=== PATIENT | female | born 1940 | race Caucasian/White ===

== ENCOUNTER 2022-04-28 11:41 | Outpatient (REF) | payer MEDICARE, OTHER, SELFPAY ==
[2022-04-28 14:23] LABS: Appearance Urine Clear; Color Urine Yellow; Glucose Urine UA Negative (Negative); Leukocyte Esterase Urine Large (3+) (Negative); Nitrite Urine Negative (Negative); PH 6.5 (5.0-9.0); UMIC TRIGGER UACC YES; Urine Blood Negative (Negative); Urine Ketones Negative (Negative); Urine Protein Negative (Neg-Trace)
[2022-04-28 14:26] LABS: Bacteria Urine Trace (None Seen); Hyaline Casts Urine 0-2 /LPF (0-2); RBC Urine 0-2 /HPF (0-2); Squamous Epithelial Cell Urine 0-2 /HPF (0-2); UACC Culture Trigger YES; WBC Urine >50 /HPF (0-5)
== END 2022-04-28 11:42 | disposition home or self-care (01) ==
LOC: HO.MANLDS 11:41
PROVIDERS: Visit Provider Internal Medicine
DX: N39.0 Urinary tract infection, site not specified (principal)
CPT/HCPCS: 81001; 87086; 87088; 87186

== ENCOUNTER 2022-07-05 18:24 | Outpatient (REF) | payer MEDICARE, OTHER, SELFPAY ==
[2022-07-06 11:25] LABS: Campylobacter Not Detected (Not Detect.); E. coli EAEC Not Detected (Not Detect.); E. coli EPEC Not Detected (Not Detect.); E. coli ETEC Not Detected (Not Detect.); E. coli STEC Not Detected (Not Detect.); Plesiomonas shigelloides Not Detected (Not Detect.); Salmonella Not Detected (Not Detect.); Vibrio Not Detected (Not Detect.); Vibrio Cholerae Not Detected (Not Detect.)
[2022-07-06 11:26] LABS: Adenovirus F 40/41 Not Detected (Not Detect.); Astrovirus Not Detected (Not Detect.); Cryptosporidium Not Detected (Not Detect.); Cyclospora cayetanensis Not Detected (Not Detect.); Entamoeba histolytica Not Detected (Not Detect.); Giardia lamblia Not Detected (Not Detect.); Norovirus GI/GII Not Detected (Not Detect.); Rotavirus A Not Detected (Not Detect.); Sapovirus Not Detected (Not Detect.); Shigella sp./EIEC Not Detected (Not Detect.)
[2022-07-06 11:28] LABS: Yersinia enterocolitica Detected (Not Detect.)
== END 2022-07-05 18:25 | disposition home or self-care (01) ==
LOC: HO.LNP 18:24
PROVIDERS: Visit Provider Physician Assistant
DX: K59.09 Other constipation (principal); R10.9 Unspecified abdominal pain; R14.0 Abdominal distension (gaseous); R11.0 Nausea
CPT/HCPCS: 87507

== ENCOUNTER 2024-01-27 09:44 | Outpatient (REF) | payer MEDICARE, OTHER, SELFPAY ==
[2024-01-27 14:20] LABS: Erythrocyte Sedimentation Rate 6 MM/HR (0-20)
[2024-01-27 14:45] LABS: Magnesium 2.4 mg/dL (1.6-2.6)
[2024-01-31 08:59] LABS: Lyme Abs Screen <0.90 index
== END 2024-01-27 09:45 | disposition home or self-care (01) ==
LOC: HO.MANLDS 09:44
PROVIDERS: Visit Provider Internal Medicine
DX: M79.10 Myalgia, unspecified site (principal)
CPT/HCPCS: 36415; 82550; 83735; 85652; 86617; 86618

== ENCOUNTER 2025-07-15 14:51 | Outpatient (REF) | payer MEDICARE, OTHER, SELFPAY ==
--- OUTSIDE RECORDS SUMMARY | 2025-07-11 04:00 | XMS_ITS | Encounter Summary ---
Author Organization [facility] Address [address] [place] [address] Phone Care Team Providers Care Cloth Colorer Name Role Phone Jv Tavera Nicole IVY Primary Care Provider [phone] Reason for Visit * Auth/Cert (Routine) Specialty Diagnoses / Procedures Referred By Contac t Referred To Contact Referral ID Status Reason Start Date Expiration Date Visits Re quested Visits Authorized [id number] 1 1 Encounter Details Date Type Department Care Team (Late st Contact Info) Description 07/11/2025 4:00 AM EST Home Care Visit [facility] [address] [place], [place] [phone] O'Nguyen, Malika Xiao, RN [address] [place] [address] [email or web address] SN HOME VISIT Social History Tobacco Use Types Packs/Day Years Used Date Smoking Tobacco: Never Smokeless Tobacco: Never Alcohol Use Standard Drinks/Week Comments Yes 0 (1 standard drink = 0.6 oz pur e alcohol) very occasional Home Health Assessment: Transportation Answer Date Recorded Lack of Transportation (Medical) No 06/21/2025 Lack of Transportation (Non-Medical) No 06/21/2025 Patient Unable or Declines to Respond No 06/21/2025 Education Answer Date Recorded Are you interested in more education? Not on yuri e 11/26/2022 Are you concerned about learning? Not on file 11/26/2022 No 11/26/2022 No 11/26/2022 Food Answer Date Recorded Within the past 6 months we worried whether our food would run out before we got money to buy more. Never True 06/18/2025 Within the past 6 months the food we bought just didn't last and we didn't have enough money to get more. Never True Residential Stability Answer Date Recor ded What is your housing situation today? I have jose rojo 06/18/2025 How many times have you move d in the past 12 months? Zero (I did not move) 06/18/2025 Paying for Meds Answer Date Recorded Do you have trouble paying for medicines? No 06/18/2025 Paying Utility Bills Answer Date Record ed Do you have trouble paying your heating or elect ricity bill? No 06/18/2025 Transportation Answer Date Recorded Has the lack of transportati on kept you from medical appointments or from getting medications? No 06/18/2025 Digital Access Answer Date Recorded No 06/18/2025 Yes 06/18/2025 Do you have reliable internet access at home? Ye s 06/18/2025 Do you have a device (e.g., phone, tablet, computer) with a working camera? Yes 06/18/2025 Intimate Partner Violence Answer Date R ecorded Are you denied basic needs s uch as food, clothing, or medical care? No 06/17/2025 In the past 12 months have y ou been in a relationship with a person who hurts, threatens, or tries to control you? No 06/17/2025 Are you denied basic needs s uch as food, clothing, or medical care? No 06/17/2025 In the past 12 months have y ou been in a relationship with a person who hurts, threatens, or tries to control you? No 06/17/2025 Comments No Sex and Gender Information Value Date Recorded Sex Assigned at Female 07/28/2018 8:57 AM EST Legal Sex Female 10:12 PM EDT Gender Identity Female 07/28/2018 8:57 AM EST Sexual Orientation Straight 07/28/2018 8: 57 AM EST documented as of this encounter Last Filed Vital Signs Vital Sign Reading Time Taken Comments Blood Pressure 136/64 07/11/2025 11:28 AM EST Pulse 66 07/11/2025 11:28 AM EST Temperature 36.8 C (98.3 F) 07/11/2025 11:28 AM EST Respiratory Rate 18 07/11/2025 11:28 AM EST Oxygen Saturation 99% 07/11/2025 11:28 AM EST Inhaled Oxygen Concentration - - Weight - - Height - - Body Mass Index - - documented in this encounter Plan of Treatment Upcoming Encounters Date Type Department Care Team (Late st Contact Info) Description 07/16/2025 10:45 AM EST Appointment [facility] [address] [place] [phone] Esther Bryant, OT [address] [place] [address] [email or web address] 07/17/2025 4:00 AM EST Appointment [facility] [address] [place] [phone] Malika Mcintosh RN [address] [place] [address] [email or web address] 07/18/2025 10:45 AM EST Appointment [facility] [address] [place] [phone] Esther Bryant, OT [address] [place] [address] [email or web address] 07/22/2025 1:00 AM EST Appointment [facility] [address] [place] [phone] Esther Bryant, OT [address] [place] [address] [email or web address] 07/23/2025 12:30 AM EST Appointment [facility] [address] [place] [phone] Malika Mcintosh RN [address] [place] [address] [email or web address] 07/23/2025 1:00 AM EST Appointment [facility] [address] [place] [phone] Esther Bryant, OT [address] [place] [address] 07/24/2025 1:30 PM EST Office Visit [facility] [address] [place] [address] Karina Pedraza, JOSÉ [address] [address] 07/31/2025 3:00 AM EST Appointment [facility] [address] [place] [phone] O'Nguyen, Malika Xiao RN [address] [place] [phone] 08/07/2025 1:00 AM EST Appointment [facility] [address] [place] [phone] O'Nguyen, Malika Xiao RN [address] [place] [phone] 08/15/2025 Appointment [facility] [address] [place] [phone] O'Nguyen, Malika Xiao RN [address] [place] [address] 08/21/2025 2:00 PM EST Office Visit [facility] [address] [place] [address] 3rd Floor, [address] [address] Yvan Bates MD [address] [place] [phone] 09/04/2025 1:00 PM EST Office Visit [facility] [address] [place] [address] [phone] Coco Smith MD [address] [place] [address] Orthopedics & Sports Medicine, [place] [address] 11/01/2025 1:30 PM EDT Telemedicine [facility] [address], 2nd Floor, [address] [place] [address] Bossman Weems MD [address] [place] [address] [address] [place] [address] [email or web address] 12/10/2025 2:00 PM EDT Office Visit [facility] [address] [place] [address] Sarah Balderas MD [address] [place] [address], 2nd [place] [address] [email or web address] documented as of this encounter Visit Diagnoses Not on filedocumented in this encounter Home Health Visit - Care Plan Visit Details Visit Type -SN HOME VISIT Discipline -Nursing Home Problems Problem Description Start Date Status Goals Interve ntions HH - Infection - Actual or Risk of Disciplines: All Active Home Health Disciplines 06/21/2025 Active 1 goal linked to scheduled/document ed intervention 1 goal intervention scheduled/document ed in this visit HH - Standard of Care Disciplines: All Active Home Health Disciplines 06/21/2025 Active 1 goal linked to scheduled/document ed intervention 2 goal interventions scheduled/document ed in this visit HH - Medication Management Disciplines: All Active Home Health Disciplines 06/21/2025 Active 1 goal linked to scheduled/document ed intervention 2 goal interventions scheduled/document ed in this visit HH - Focus of Care and Teaching Disciplines: All Active Home Health Disciplines w/RD 06/21/2025 Active 1 goal linked to scheduled/document ed intervention 1 goal intervention scheduled/document ed in this visit HH - Emergency Planning - Knowledge of Disciplines: All Active Home Health Disciplines 06/21/2025 Active 1 goal linked to scheduled/document ed intervention 2 goal interventions scheduled/document ed in this visit Goals Goal Associated Problem Outcome Goal Met? Visit Notes HH - Patient will have no new infection; any new infection that occurs will be identified and treated promptly; existing infection will resolve without complication Description: Patient and caregiver(s) will demonstrate understanding of infection prevention, monitoring, and treatment as appropriate HH - Infection - Actual or Risk of No HH - Achieve care management for a safe to home/community discharge from homecare HH - Standard of Care No HH - Safe medication management, avoid unnecessary harm related to medication errors and/or interactions HH - Medication Management No HH - Communication and collaboration to achieve patient goals HH - Focus of Care and Teaching No HH - Knowledge of options for managing care in the event of an emergency related situation. HH - Emergency Planning - Knowledge of No Interventions Intervention Associated Problem/Goal Status Variance Visit Notes HH - Assess infection risk and s/s Problem:HH - Infection - Actual or Risk of Goal:HH - Patient will have no new infection; any new infection that occurs will be identified and treated promptly; existing infection will resolve without complication Performed HH - Assess vital signs, pulse oximetry, pain, and as indicated, orthostatic vital signs Description: use agency-specific parameters Problem:HH - Standard of Care Goal:HH - Achieve care management for a safe to home/community discharge from homecare Performed HH - Assess skin integrity Problem: - Standard of Care Goal:HH - Achieve care management for a safe to home/community discharge from homecare Performed HH - I/E medication management: administration, purpose, dosages, preparation, setup, scheduling, side effects, food/drug interactions, and potential complications as indicated Description: Update patient's copy of medication list as needed. Problem: - Medication Management Goal:HH - Safe medication management, avoid unnecessary harm related to medication errors and/or interactions Performed - Complete medication review every visit and medication reconciliation as indicated. Pharmacy information: Description: medications will be reviewed each visit Problem: - Medication Management Goal: - Safe medication management, avoid unnecessary harm related to medication errors and/or interactions Performed - Focus of care, teaching completed and plan for next visit Problem: - Focus of Care and Teaching Goal: - Communication and collaboration to achieve patient goals Performed Primary Clinical Focus this Visit & Instruction Provided: SNV for CVP, GI/. Pt c/o constipation that causes her discomfort 10/08. Pt is taking Senna daily and states she is worried about taking more because it causes her to many frequent BMs. She report s she is having trouble finding the right amount to help her have regular BMs. Education was provided on diet, exercise and hydration. Pt states that she has trouble eating and drinking when she feels constipated. Pt has an apointment with PCP next week and plans to discuss this with PCP. She also has an apointment with GI on 07/24 to follow up. Pt declined vitals assessment because her OT apointment was directly after this visit and she wanted to only have them assessed once. Pt became upset about havi ng her vitals taken. Education was provided on how SNV assessments require us to evaluate her including taking her vitals. Instruction Provided to: patient Response to Instruction/Teaching : Is fully able to teach back topics as evidenced by verbal und erstanding. Plan for Next Visit Specific Focus & Education Needed: CVP, GI/ teaching New Orders: no Updated Discharge Plan: when goals are met HH - I/E management of care in an urgent or emergency (ER) situation: When to call your Home Care Team/911, ER plans, supplies, evacuation, when to contact local ER officials and how to stay informed Problem:HH - Emergency Planning - Knowledge of Goal:HH - Knowledge of options for managing care in the event of an emergency related situation. Performed HH - Emergency planning assessment: the emergency plan, supplies needed, emergency contact numbers and an evacuation plan were reviewed Description: Patient and Caregiver is/are knowledgeable of emergency plans. Problem:HH - Emergency Planning - Knowledge of Goal:HH - Knowledge of options for managing care in the event of an emergency related situation. Performed documented in this encounter Care Teams Cloth Colorer Relationship Specialty Start Date End Date Jv Tavera DO [address] [place] [address] [email or web address] PCP - General Internal Medicine 03/26/25 documented as of this encounter Additional Source Comments The information contained in this document represents components of the legal health record. It is not the complete legal health record.[facility]
--- OUTSIDE RECORDS SUMMARY | 2025-07-11 11:00 | XMS_ITS | Encounter Summary ---
Author Organization [facility] Address [address] [place] [address] Phone Care Team Providers Care Igniter Assembler Name Role Phone Jv Tavera Primary Care Provider [phone] Reason for Visit * Auth/Cert (Routine) Specialty Diagnoses / Procedures Referred By Contac t Referred To Contact Referral ID Status Reason Start Date Expiration Date Visits Re quested Visits Authorized [id number] 1 1 Encounter Details Date Type Department Care Team (Late st Contact Info) Description 07/11/2025 11:00 AM EST Home Care Visit [facility] [address] [place] [phone] Esther Bryant, OT [address] [place] [address] [email or web address] OT HOME VISIT Social History Tobacco Use Types [...] 07/16/2025 10:45 AM EST Appointment [facility] [address] [place] [phone] Esther Bryatn, OT [address] [place] [address] 07/17/2025 4:00 AM EST Appointment [facility] [address] [place] [phone] O'Malika Cedillo RN [address] [place] [address] 07/18/2025 10:45 AM EST Appointment [facility] [address] [place] [phone] Esther Bryant, OT [address] [place] [address] 07/22/2025 1:00 AM EST Appointment [facility] [address] [place] [phone] Esther Bryant, OT [address] [place] [address] 07/23/2025 12:30 AM EST Appointment [facility] [address] [place] [phone] Malika Mcintosh RN [address] [place] [address] 07/23/2025 1:00 AM EST Appointment [facility] [address] [place] [phone] Esther Bryant, OT [address] [place] [address] 07/24/2025 1:30 PM EST Office Visit [facility] [address] [place] [address] Karina Pedraza, JOSÉ [address] [address] 07/31/2025 3:00 AM EST Appointment [facility] [address] [place] [phone] O'Nguyen, Malika Xiao RN [address] [place] [phone] 08/07/2025 1:00 AM EST Appointment [facility] [address] [place] [phone] O'Nguyen, Malika Xiao RN [address] [place] [address] 08/15/2025 Appointment [facility] [address] [place] [phone] O'Nguyen, Malika Xiao RN [address] [place] [phone] 08/21/2025 2:00 PM EST Office Visit [facility] [address] [place] [address] 3rd Floor, [address] [address] Yvan Bates MD [address] [place] [address], [address] [address] 09/04/2025 1:00 PM EST Office Visit [facility] [address] [place] [phone] Coco Smith MD [address] [place] [address] Orthopedics & Sports Medicine, [facility] [place] [address] 11/01/2025 1:30 PM EDT Telemedicine [facility] [address], 2nd [address], [address] [place] [address] Bossman Weems MD [address] [place] [address] [email or web address] 12/10/2025 2:00 PM EDT Office Visit [facility] General [facility] Care [address] [place] [address] Sarah Baldears MD [address] [facility], 2nd [place] [address] [email or web address] documented as of this encounter Visit Diagnoses Not on filedocumented in this encounter Home Health Visit - Care Plan Visit Details Visit Type -OT HOME VISIT Discipline -Occupational Therapy Problems Problem Description Start Date Status Goals Interve ntions HH - Standard of Care Disciplines: All Active Home Health Disciplines 06/21/2025 Active 1 goal linked to scheduled/document ed intervention 3 goal interventions scheduled/document ed in this visit [...] scheduled/document ed in this visit HH - ADL/IADL Impairment and Therapeutic Interventions Disciplines: Occupational Therapy 06/26/2025 Active 1 goal linked to scheduled/document ed intervention 1 goal intervention scheduled/document ed in this visit Goals Goal Associated Problem Outcome Goal Met? Visit Notes HH - Achieve care management for a [...] - Emergency Planning - Knowledge of No HH - Promote higher level of independence with performance of ADLs/IADLs. Description: OT goals: 1.Patient will demonstrate ind with car transfers using AE as needed in 4 weeks. 2.Patient will demonstrate tub transfers using DME as needed ind in 4 weeks 3.Patient will demonstrate shower level bathing seated/standing from tub transfer b ench with SBA in 4 weeks 4.Patient will verbalize understanding of 2-3 EC strategies in order to reduce SOB and continue to participate in adl/iadl tasks. 5.Patient will demonstrate/understanding of therapy recommendations >90% accuracy in order to re duce fall risk and remain in home safely in 4 weeks. HH - ADL/IADL Impairment and Therapeutic Interventions Progressing No Interventions Intervention Associated Problem/Goal Status Variance Visit Notes HH - Assess vital signs, pulse oximetry, pain, and as indicated, orthostatic vital signs Description: use agency-specific parameters Problem:HH - Standard of Care Goal:HH - Achieve care management for a safe to home/community discharge from homecare Performed HH - Assess skin integrity Problem: - Standard of Care Goal:HH - Achieve care management for a safe to home/community discharge from homecare Performed - I/E discharge plan Problem:HH - Standard of Care Goal:HH - Achieve care management for a safe to home/community discharge from homecare Performed HH - I/E medication management: administration, purpose, dosages, preparation, setup, scheduling, side effects, food/drug interactions, and potential complications as indicated Description: Update patient's copy of medication list as needed. Problem:HH - Medication Management Goal:HH - Safe medication management, avoid unnecessary harm related to medication errors and/or interactions Performed HH - Complete medication review every visit and medication reconciliation as indicated. Pharmacy information: Description: medications will be reviewed each visit Problem: - Medication Management Goal:HH - Safe medication management, avoid unnecessary harm related to medication errors and/or interactions Performed HH - Focus of care, teaching completed and plan for next visit Problem: - Focus of Care and Teaching Goal:HH - Communication and collaboration to achieve patient goals Performed Primary Clinical Focus this Visit & Instruction Provided: Patient acquired tub transfer bench through [employer]-Patient willing to trial with OTR this date. Patient demonstrated ability to sit onto bench and pivot self around. OTR cued patient to think of it how she would get into a car. Patient physically able, however continues to want more to hold onto.Patient has 3 grab bars- though she wants a bar on the side of the tub that she steps over. OTR reviewed possibly acquiring tub clamp- however they also do not come up as high as patient is thinking. Vitals stable Pain - abdominal pain- cramping from needing to have BM- having difficulty. OTR also verbalized use of stool instead of bench, as patient can lift legs in and out of. patient may do this She has been showering when her daughter visits- though would like to do them on her own. WIll continue to work with patient to find the best solution for her. Instruction Provided to: patient Response to Instruction/Teaching : Is partially able to te ach back topics as evidenced by demo and verbalization Plan for Next Visit Specific Focus & Education Needed: fu with transfers. New Orders: NA Updated Discharge Plan: continue POC HH - I/E management of care in [...] an emergency related situation. Performed HH - I/E ADL/IADL performance, safety, and management Description: As indicated: ADL/IADL training, functional mobility training, adaptive equipment: recommendations and use, therapeutic exercise and home exercise program, safety, energy conservation/pacing, cognitive training, and visual/perceptual strategies. Problem:HH - ADL/IADL Impairment and Therapeutic Interventions Goal:HH - Promote higher level of independence with performance of ADLs/IADLs. Performed documented in this encounter Care Teams Igniter Assembler Relationship Specialty Start Date End Date Jv Tavera DO [address] [place] [address] [email or web address] PCP - General Internal Medicine 03/26/25 documented as of this encounter Additional Source Comments The information contained in this document represents components of the legal health record. It is not the complete legal health record.[facility]
--- OUTSIDE RECORDS SUMMARY | 2025-07-15 12:00 | XMS_ITS | Encounter Summary ---
Author Organization [facility] Address [address] [place] [address] Phone Care Team Providers Care Grader Operator Name Role Phone Jv Tavera Primary Care Provider [phone] Reason for Visit * Auth/Cert (Routine) Specialty Diagnoses / Procedures Referred By Contac t Referred To Contact Referral ID Status Reason Start Date Expiration Date Visits Re quested Visits Authorized [id number] 1 1 Encounter Details Date Type Department Care Team (Late st Contact Info) Description 07/15/2025 12:00 PM EST Home Care Visit [facility] [address] [place], [place] [phone] Deena Malik, PT [address] [place] [address] [email or web address] PT HOME VISIT Social History Tobacco Use Types [...] Sign Reading Time Taken Comments Blood Pressure 124/70 07/15/2025 12:38 PM EST Pulse 68 07/15/2025 12:38 PM EST Temperature 36.3 C (97.3 F) 07/15/2025 12:38 PM EST Respiratory Rate - - Oxygen Saturation 97% 07/15/2025 12:38 PM EST Inhaled Oxygen Concentration - - Weight - - Height - - Body Mass Index - - documented in this encounter Plan of Treatment Upcoming Encounters Date Type Department Care Team (Late st Contact Info) Description 07/16/2025 10:45 AM EST Appointment [facility] [address] [place] [phone] Esther Bryant, OT [address] [place] [address] 07/17/2025 4:00 AM EST Appointment [facility] [address] [place] [phone] Malika Mcintosh RN [address] [place] [address] 07/18/2025 10:45 AM EST Appointment [facility] [address] [place] [phone] Esther Bryant, OT [address] [place] [address] 07/22/2025 1:00 AM EST Appointment [facility] [address] [place] [phone] Esther Bryant, OT [address] [place] [address] 07/23/2025 12:30 AM EST Appointment [facility] [address] [place] [phone] Malika Mcintosh RN [address] [place] [address] 07/23/2025 1:00 AM EST Appointment [facility] [address] [place] [phone] Esther Bryant, OT [address] [place] [address] 07/24/2025 1:30 PM EST Office Visit [facility] [address] [place] [address] Karina Pedraza, JOSÉ [address] [address] 07/31/2025 3:00 AM EST Appointment [facility] [address] [place] [phone] O'Nguyen, Malika Xiao RN [address] [place] [address] 08/07/2025 1:00 AM EST Appointment [facility] [address] [place] [phone] O'Nguyen, Malika Xiao RN [address] [place] [address] 08/15/2025 Appointment [facility] [address] [place] [phone] O'Nguyen, Malika Xiao RN [address] [place] [address] 08/21/2025 2:00 PM EST Office Visit [facility] [address] [place] [address] 3rd Floor, [address] [address] Yvan Bates MD [address] [place] [address], [address] [address] 09/04/2025 1:00 PM EST Office Visit [facility] [address] [place] [address] [phone] Coco Smith MD [address] [place] [address] Orthopedics & Sports Medicine, [facility] [place] [address] 11/01/2025 1:30 PM EDT Telemedicine [facility] [address], 2nd Floor, [address] [place] [address] Bossman Weems MD [address] [facility] [address] [place] [address] [email or web address] 12/10/2025 2:00 PM EDT Office Visit [facility] General Surgical Care [address] [place] [address] Sarah Balderas MD [address] [facility], 2nd [place] [address] [email or web address] documented as of this encounter Visit Diagnoses Not on filedocumented in this encounter Home Health Visit - Care Plan Visit Details Visit Type -PT HOME VISIT Discipline -Physical Therapy Problems Problem Description Start Date Status [...] scheduled/document ed in this visit HH - Mobility and Activity Tolerance - Impaired Disciplines: Physical Therapy 07/05/2025 Active 1 goal linked to scheduled/document ed [...] Planning - Knowledge of No HH - Demonstrate maximum mobility and activity level for safe function Description: 1) Patient lolly be (I) with ambulation on even and uneven surfaces x 200ft by 08/03/25 2) Patient will be (I) with transfers without cues by 08/03/25 3) Patient will be (I) with HEP with RPE 3/10 and VSS by 08/03/25 4) Patient will asc/dec 4 stai rs with 1 rails by 08/03/25 HH - Mobility and Activity Tolerance - Impaired Progressing No Interventions Intervention Associated Problem/Goal Status Variance Visit Notes HH - Assess vital signs, pulse oximetry, pain, and as indicated, orthostatic vital signs Description: use agency-specific parameters Problem: - Standard of Care Goal:HH - [...] Focus this Visit & Instruction Provided: Patient states she hasn't been able to do exercises over weekend because of WALKER over weekend. She has appt with Dr. Tavera following PT visit today. Her VSS at time of visit, verbal review of HEP . She declines further activity due to needing to leave. Educated to try and do a little bit of exercise tomorrow. Instruction Provided to: patient Response to Instruction/Teaching : Is partially able to teach back topics as evidenced by verbalizatio n . Plan for Next Visit Specific Focus & Education Needed: Progress as tolerated New Orders: n/a Updated Discharge Plan: to care of self HH - I/E management of care in [...] an emergency related situation. Performed HH - Therapeutic interventions, as indicated: Description: balance training, bed mobility training, durable medical equipment training, gait/stair training, manual therapy/soft tissue mobilization , neuromuscular retraining/tone management, and desensitization techniques, therapeutic exercise/home exercise progr am and transfer training, including bathroom transfers Problem:HH - Mobility and Activity Tolerance - Impaired Goal:HH - Demonstrate maximum mobility and activity level for safe function Performed This visit therex, theract, Gait training HH - I/E therapeutic function/activity: Description: As indicated: activity promotion and management, functional mobility training, therapeutic exercise and home exercise program, device use. Problem:HH - Mobility and Activity Tolerance - Impaired Goal:HH - Demonstrate maximum mobility and activity level for safe function Performed documented in this encounter Care Teams Grader Operator Relationship Specialty Start Date End Date Jv Tavera DO [address] [place] [phone] [email or web address] PCP - General Internal Medicine 03/26/25 documented as of this encounter Additional Source Comments The information contained in this document represents components of the legal health record. It is not the complete legal health record.[facility]
[2025-07-15 18:21] LABS: Appearance Urine Cloudy; Glucose Urine UA Negative (Negative); MANUAL DIFF FLAG NO; PH 6.0 (5.0-9.0); Specific Gravity - Urine 1.015 (1.005-1.025); UMIC TRIGGER UACC YES
[2025-07-15 18:29] LABS: UACC Culture Trigger YES
[2025-07-15 18:30] LABS: Hematocrit 35.5 % (37.0-47.0); Hemoglobin 12.4 g/dl (12.0-16.0); Imm Gran Abs Auto 0.02 X10*3/uL (0.00-0.03); Imm Gran Pct Auto 0.3 % (0.0-0.4); Lymphocytes Absolute Auto 1.9 X10*3/uL (1.2-4.9); Mean Corpuscular HGB Conc 34.9 g/dl (31.0-35.0); Mean Corpuscular Hemoglobin 30.9 pg (27.0-33.0); Mean Corpuscular Volume 88.5 fL (80.0-98.0); NRBC Abs Auto 0.000 X10*3/uL (0.0-0.012); NRBC Pct Auto 0.0 /100WBC (0.0-0.2); Platelet Count 294 X10*3/uL (160-400); Red Blood Count 4.01 X10*6/uL (4.20-5.50); White Blood Count 6.5 X10*3/uL (4.8-10.8)
[2025-07-15 19:14] LABS: NT Pro B Type Natriuretic Pept 404.4 pg/mL (<300)
[2025-07-15 19:19] LABS: Alanine Aminotransferase 18 U/L (0-31); Albumin Level 3.8 g/dL (3.5-5.0); Alkaline Phosphatase 63 U/L (39-117); Anion Gap 9 (12-20); Aspartate Amino Transferase 22 U/L (5-31); Blood Urea Nitrogen 12 mg/dL (9-16); Calcium 9.0 mg/dL (8.4-10.2); Carbon Dioxide 23 mmol/L (22-29); Chloride 102 mmol/L (96-108); Estimated Glomerular Filt Rate > 60; Potassium 3.8 mmol/L (3.3-5.1); Sodium 130 mmol/L (135-145); Total Protein 5.8 g/dL (6.5-8.0)
[2025-07-15 19:24] LABS: Thyroid Stimulating Hormone 1.88 uIU/mL (0.32-4.0)
--- OUTSIDE RECORDS SUMMARY | 2025-07-15 21:20 | XMS_ITS | Encounter Summary ---
Author Organization [facility] Address [address] [place] [address] Phone Care Team Providers Care Pilot Boat Captain Name Role Phone Jv Tavera DO Primary Care Provider [phone] Jv Tavera DO Primary Care Provider [phone] Encounter Details Date Type Department Care Team (Late st Contact Info) Description 01/27/2024 Procedure Pass , Ct Scan - [facility] [address] [place] [address] Social History Tobacco Use Types Packs/Day Years Used Date Smoking Tobacco: Never Smokeless Tobacco: Never Alcohol Use Standard Drinks/Week Comments Yes 0 (1 standard drink = 0.6 oz pur e alcohol) very occasional Education Answer Date Recorded Are you interested in more education? Not on yuri e 11/26/2022 Are you concerned about learning? Not on file 11/26/2022 No 11/26/2022 No 11/26/2022 Food Answer Date Recorded Within the past 6 months we worried whether our food would run out before we got money to buy more. Never True 01/29/2024 Within the past 6 months the food we bought just didn't last and we didn't have enough money to get more. Never True Residential Stability Answer Date Recor ded What is your housing situation today? I have jose sing 01/29/2024 How many times have you move d in the past 12 months? Zero (I did not move) 01/29/2024 Paying for Meds Answer Date Recorded Do you have trouble paying for medicines? No 01/29/2024 Paying Utility Bills Answer Date Record ed Do you have trouble paying your heating or elect ricity bill? No 01/29/2024 Transportation Answer Date Recorded Has the lack of transportati on kept you from medical appointments or from getting medications? No 01/29/2024 Digital Access Answer Date Recorded No 01/29/2024 Yes 01/29/2024 Do you have reliable internet access at home? Ye s 01/29/2024 Do you have a device (e.g., phone, tablet, computer) with a working camera? Yes 01/29/2024 Comments No Sex and Gender Information Value Date Recorded Sex Assigned at Female 07/28/2018 8:57 AM EST Legal Sex Female 10:12 PM EDT Gender Identity Female 07/28/2018 8:57 AM EST Sexual Orientation Straight 07/28/2018 8: 57 AM EST documented as of this encounter Functional Status * Calculated C-SSRS Risk Score (Lifetime/Recent) Answer Date of Assessment Author No Risk Indicated 01/29/2024 8:38 PM EDT Corrina Person RN * [place] Suicide Severity Rating Scale (Screener/Recent Self-Report) Question Answer Date of Assessment Author 1. Wish to be (Past 1 Month) No 01/29/2024 3:39 PM EDT Tabitha Sanabria RN 2. Non-Specific Active Suicidal Thoughts (Past 1 Month) No 01/29/2024 8:38 PM EDT Angie Person RN 6. Suicidal Behavior (Lifetime) No 01/29/2024 8:38 PM EDT Angie Person RN documented as of this encounter Plan of Treatment Upcoming Encounters Date Type Department Care Team (Late st Contact Info) Description 07/16/2025 10:45 AM EST Appointment [facility] [address] [place] [phone] Esther Bryant, OT [address] [place] [address] 07/17/2025 4:00 AM EST Appointment [facility] [address] [place] [phone] Michelle'Malika Cedillo RN [address] [place] [address] 07/18/2025 10:45 AM EST Appointment [facility] [address] [place] [phone] Esther Bryant, OT [address] [place] [address] 07/22/2025 1:00 AM EST Appointment [facility] [address] [place] [address] Esther Bryant, OT [address] [place] [address] 07/23/2025 12:30 AM EST Appointment [facility] [address] [place] [address] O'Malika Cedillo RN [address] [place] [address] 07/23/2025 1:00 AM EST Appointment [facility] [address] [place] [address] Esther Bryant, OT [address] [place] [address] 07/24/2025 1:30 PM EST Office Visit [facility] [address] [place] [address] Karina Pedraza, REGIONAL SALES CONSULTANT [address] [place] [address] 07/31/2025 3:00 AM EST Appointment [facility] [address] [place] [phone] O'Malika Cedillo RN [address] [place] [address] 08/07/2025 1:00 AM EST Appointment [facility] [address] [place] [phone] O'Nguyen, Malika Xiao RN [address] [place] [address] 08/15/2025 Appointment [facility] [address] [place] [address] O'Nguyen, Malika Xiao RN [address] [place] [address] 08/21/2025 2:00 PM EST Office Visit [facility] [address] [facility] 3rd Floor, [address] [place] [address] Yvan Bates MD [address] [facility], [address] [place] [address] 09/04/2025 1:00 PM EST Office Visit [facility] Medicine [address] [place] [address] Coco Smith MD [address] [place] [address] Orthopedics & Sports Medicine, [facility] [place] [address] 11/01/2025 1:30 PM EDT Telemedicine [facility] [address] [facility] [address] [facility], 2nd Floor, [address] [place] [address] Bossman Weems MD [address] [place] [address] [address] [place] [address] [email or web address] 12/10/2025 2:00 PM EDT Office Visit [facility] General Surgical Care [address] [place] [address] Sarah Balderas MD [address] [facility], 2nd [place] [address] documented as of this encounter Visit Diagnoses Not on filedocumented in this encounter Additional Health Concerns Infection Onset Date Last Indicated Resolved Time CoV-Risk 04/20/2024 04/20/2024 05/01/2024 1:22 AM EDT CoV-Risk 07/20/2024 07/20/2024 07/23/2024 9:54 AM EST COVID-19 Comment:Symptom onset = 07/20, 10 days, not immunocompromised 07/20/2024 07/23/2024 08/02/2024 1 2:18 PM EST documented as of this encounter Care Teams Pilot Boat Captain Relationship Specialty Start Date End Date Jv Tavera DO PCP - General Internal Medicine 06/14/17 03/25/25 Jv Tavera DO [address] [place] [address] PCP - General Internal Medicine 03/26/25 documented as of this encounter Additional Source Comments The information contained in this document represents components of the legal health record. It is not the complete legal health record.[facility]
--- OUTSIDE RECORDS SUMMARY | 2025-07-15 21:20 | XMS_ITS | Encounter Summary ---
Author Organization [facility] Address [address] [place] [address] Phone Care Team Providers Care Dependency Counselor Name Role Phone Jv Tavera DO Primary Care Provider [phone] Jv Tavera DO Primary Care Provider [phone] Encounter Details Date Type Department Care Team (Late st Contact Info) Description 03/22/2025 Procedure Pass [facility] [address] [place] [address] Social History Tobacco Use Types Packs/Day Years Used Date Smoking Tobacco: Never Smokeless Tobacco: Never Alcohol Use Standard Drinks/Week Comments Yes 0 (1 standard drink = 0.6 oz pur e alcohol) very occasional Home Health Assessment: Transportation Answer Date Recorded Lack of Transportation (Medical) No 10/26/2024 Lack of Transportation (Non-Medical) No 10/26/2024 Patient Unable or Declines to Respond No 10/26/2024 Education Answer Date Recorded Are you interested in more education? Not on yuri e 11/26/2022 Are you concerned about learning? Not on file 11/26/2022 No 11/26/2022 No 11/26/2022 Food Answer Date Recorded Within the past 6 months we worried whether our food would run out before we got money to buy more. Never True 07/23/2024 Within the past 6 months the food we bought just didn't last and we didn't have enough money to get more. Never True Residential Stability Answer Date Recor ded What is your housing situation today? I have jose sing 07/23/2024 How many times have you move d in the past 12 months? Zero (I did not move) 07/23/2024 Paying for Meds Answer Date Recorded Do you have trouble paying for medicines? No 07/23/2024 Paying Utility Bills Answer Date Record ed Do you have trouble paying your heating or elect ricity bill? No 07/23/2024 Transportation Answer Date Recorded Has the lack of transportati on kept you from medical appointments or from getting medications? No 07/23/2024 Digital Access Answer Date Recorded No 07/23/2024 Yes 07/23/2024 Do you have reliable internet access at home? Ye s 07/23/2024 Do you have a device (e.g., phone, tablet, computer) with a working camera? Yes 07/23/2024 Intimate Partner Violence Answer Date R ecorded Are you denied basic needs s uch as food, clothing, or medical care? No 03/26/2025 In the past 12 months have y ou been in a relationship with a person who hurts, threatens, or tries to control you? No 03/26/2025 Are you denied basic needs s uch as food, clothing, or medical care? No 03/26/2025 In the past 12 months have y ou been in a relationship with a person who hurts, threatens, or tries to control you? No 03/26/2025 Comments No Sex and Gender Information Value Date Recorded Sex Assigned at Female 07/28/2018 8:57 AM EST Legal Sex Female 10:12 PM EDT Gender Identity Female 07/28/2018 8:57 AM EST Sexual Orientation Straight 07/28/2018 8: 57 AM EST documented as of this encounter Plan of Treatment Upcoming Encounters Date Type Department Care Team (Late st Contact Info) Description 07/16/2025 10:45 AM EST Appointment [facility] [address] [place], [place] [phone] Esther Bryant, OT [address] [place] [address] 07/17/2025 4:00 AM EST Appointment [facility] [address] [place] [phone] O'Nguyen, Malika Xiao RN [address] [place] [address] [email or web address] 07/18/2025 10:45 AM EST Appointment [facility] [address] [place] [phone] Esther Bryant, OT [address] [place] [address] [email or web address] 07/22/2025 1:00 AM EST Appointment [facility] [address] [place] [phone] Esther Bryant, OT [address] [place] [address] [email or web address] 07/23/2025 12:30 AM EST Appointment [facility] [address] [place] [phone] O'Malika Cedillo RN [address] [place] [address] [email or web address] 07/23/2025 1:00 AM EST Appointment [facility] [address] [place] [phone] Esther Bryant, OT [address] [place] [address] [email or web address] 07/24/2025 1:30 PM EST Office Visit [facility] G[facility]ology Clinic [address] [place] [address] Karina Pedraza, JOSÉ [address] [place] [address] 07/31/2025 3:00 AM EST Appointment [facility] [address] [place] [phone] O'Malika Cedillo RN [address] [place] [address] 08/07/2025 1:00 AM EST Appointment [facility] [address] [place] [address] O'Malika Cedillo RN [address] [place] [address] 08/15/2025 Appointment [facility] [address] [place] [phone] O'Nguyen, Malika Xiao RN [address] [place] [address] 08/21/2025 2:00 PM EST Office Visit [facility] [address] [facility] 3rd Floor, [address] [place] [address] Yvan Bates MD [address] [facility], [address] [place] [address] 09/04/2025 1:00 PM EST Office Visit [facility] Orthopedics & Sports Medicine [address] [place] [address] Coco Smith MD [address] [place] [address] Orthopedics & Sports Medicine, [place] [address] [email or web address] 11/01/2025 1:30 PM EDT Telemedicine [facility] [address] [place] [address], 2nd Floor, [address] [place] [address] Bossman Weems MD [address] [place] [address] [address] [place] [address] [email or web address] 12/10/2025 2:00 PM EDT Office Visit [facility] General Surgical Care [address] [place] [address] Sarah Balderas MD [address] [facility], 2nd [place] [address] documented as of this encounter Visit Diagnoses Not on filedocumented in this encounter Care Teams Dependency Counselor Relationship Specialty Start Date End Date Jv Tavera DO PCP - General Internal Medicine 06/14/17 03/25/25 Jv Tavera DO [address] [place] [address] PCP - General Internal Medicine 03/26/25 documented as of this encounter Additional Source Comments The information contained in this document represents components of the legal health record. It is not the complete legal health record.[facility]
--- OUTSIDE RECORDS SUMMARY | 2025-07-15 21:20 | XMS_ITS | Encounter Summary ---
Author Organization [facility] Address [address] [facility] [address] [place] [address] Phone Care Team Providers Care Brothel Keeper Name Role Phone Jv Tavera DO Primary Care Provider [phone] Jv Tavera DO Primary Care Provider [phone] Reason for Referral * Outpatient Procedure - Closed Specialty Diagnoses / Procedures Referred By Rylie [email or web address] Referred To Contact Radiology Diagnoses Pulmonary hypertension, unspecified Procedures Adult Echo TTE Jv Tavera DO Phone: tel: fax: [email or web address] Referral ID Status Reason Start Date Expiration Date Visits Re quested Visits Authorized [id number] Closed 12/28/2023 12/27/2024 1 1 Encounter Details Date Type Department Care Team (Late st Contact Info) Description 12/28/2023 Transcribe Orders Virtual Department [address] [place] [address] Jv Tavera DO [address] [place] [address] [email or web address] Pulmonary hypertension, unspecified (Primary Dx) Social History Tobacco Use Types Packs/Day Years Used Date Smoking Tobacco: Never Smokeless Tobacco: Never Alcohol Use Standard Drinks/Week Comments Yes 0 (1 standard drink = 0.6 oz pur e alcohol) very occasional Education Answer Date Recorded Are you interested in more education? Not on yuri e 11/26/2022 Are you concerned about learning? Not on file 11/26/2022 No 11/26/2022 No 11/26/2022 Digital Access Answer Date Recorded No 12/27/2022 No 12/27/2022 Reliable internet access at home? Not on file 12/27/2022 Device with a working camera? Not on file Comments No Sex and Gender Information Value [...] Appointment [facility] [address] [place] [phone] Esther Bryant, OT [address] [place] [address] 07/17/2025 4:00 AM EST Appointment [facility] [address] [place] [phone] O'Nguyen, Malika Xiao, RN [address] [place] [address] 07/18/2025 10:45 AM EST Appointment [facility] [address] [place] [phone] Esther Bryant, OT [address] [place] [address] 07/22/2025 1:00 AM EST Appointment [facility] [address] [place] [phone] Esther Bryant, OT [address] [place] [address] 07/23/2025 12:30 AM EST Appointment [facility] [address] [place] [phone] O'Malika Cedillo RN [address] [place] [address] 07/23/2025 1:00 AM EST Appointment [facility] [address] [place] [phone] Esther Bryant, OT [address] [place] [address] 07/24/2025 1:30 PM EST Office Visit [facility] 10 [place] [address] Karina Pedraza, [employer] [address] [address] 07/31/2025 3:00 AM EST Appointment [facility] [address] [place] [phone] O'NguyenMalika RN [address] [place] [address] 08/07/2025 1:00 AM EST Appointment [facility] [address] [place] [phone] O'Malika Cedillo RN [address] [place] [address] 08/15/2025 Appointment [facility] [address] [place] [phone] O'Malika Cedillo RN [address] [place] [address] 08/21/2025 2:00 PM EST Office Visit [facility] [address] [place] [address] 3rd Floor, [address] [place] [address] Yvan Bates MD [address] [facility], [address] [place] [address] [email or web address] 09/04/2025 1:00 PM EST Office Visit [facility] [address] [place] [address] Coco Smith MD [address] [place] [address] Orthopedics & Sports Medicine, [facility] [place] [address] [email or web address] 11/01/2025 1:30 PM EDT Telemedicine [facility] [address] [facility], 2nd Floor, [address] [place] [address] Bossman Weems MD [address] [place] [address] [address] [place] [address] [email or web address] 12/10/2025 2:00 PM EDT Office Visit [facility] General Surgical Care 15 [place] [address] Sarah Balderas MD [address] [facility], 2nd [place] [address] [email or web address] documented as of this encounter Results * TTE COMPREHENSIVE (01/06/2024 11:00 AM EDT) Body Surface Area 1.75 m2 Height 165 cm Weight 68 kg Systolic BP 124 mmHg Diastolic BP 75 mmHg Interventricular Septum Thickness 8 6 - 11 mm Left Ventricle Internal Diameter End Diastole 42 37 - 52 mm Left Ventricle Internal Diameter End Systole 25 <35 mm Left Ventricular Outflow Tract Diameter 21.0 mm LVOT VTI REST 186.0 mm Left Ventricular Outflow Tract Velocity 0.9 m/s Left Ventricular Outflow Tract Gradient at Rest 3 mmHg Left Ventricular Posterior Wall Thickness 10 6 - 11 mm Ejection Fraction 64 50 - 75 Percent Left Atrium Dimension Anterior-Posterior 33 15 - 40 mm Aortic Valve Peak Velocity 130.0 cm/s Aortic Valve Peak Gradient 7 mmHg Aortic Valve Mean Gradient 4 mmHg Aortic Valve Time Velocity Integral 330.0 mm Aortic Sinus Diameter 30 <40 mm Ascending Aorta Diameter 37 <36 mm Inferior Vena Cava Diameter 11 <21 mm Mitral Valve Deceleration Time 342 ms Mitral Valve A Wave Speed 102.0 cm/s Mitral Valve E Wave Speed 66.8 cm/s Right Ventricle Basal Diameter 26 25 - 41 mm Tricuspid Valve Peak Velocity 2.3 m/s Raw LV EF% 65 % Relative Wall Thickness 0.48 0.22 - 0.42 Aortic Valve Prosthetic Peak Gradient 7 mmHg Aortic Valve Prosthetic Mean Gradient 4 mmHg Aortic Valve Sinus Index by BSA 17 mm/m2 Aorta Sinus Index by Height 1.82 cm/m Aorta Sinus CSA index by Height 4.28 cm2/m Ascending Aorta Index 21 mm/m2 Asc Aorta CSA Index by Height 6.51 cm2/m Right Ventricle to Right Atrium Pressure Gradient 21 mmHg Right Ventricle Peak Systolic Pressure (Assuming RAP 10) 31 mmHg RVSP (Exclusive of RAP) 21 mmHg Ascending Aorta Index 21 mm Aortic Sinus Index 17 mm Ascending Aorta Diameter 21 mm Aortic Valve Sinus Index 1 17 19 - 27 mm AO ASC DIAM BSA INDEX 21.14 Left Atrial Volume Index 14 16 - 34 mL/m2 Right Ventricle Peak Systolic Pressure 24 mmHg Left Ventricle E Wave Speed 67.0 cm/s Right Ventricle TAPSE 26 >=17 mm Left Ventricle Ea Lateral Wave Speed 6.1 cm/s Right Ventricle Pulse Doppler S Wave 12.6 >=9.5 cm/s MV E/E' Tissue Velocity Lateral 10.98 Left Ventricle A Wave Speed 102.0 cm/s MV E/A ratio 0.7 Left Ventricle Ea Septal Wave Speed 5.2 cm/s MV E/e' septal 12.88 Left Ventricle E/e' Average 11.9 Left Atrial Volume 25 mL Left Atrial Volume Index by Height 15 mL/m Right Atrium Pressure Estimated 3 mmHg Echo E/Ea 12.88 Anatomical Region Laterality Modality Heart Ultrasound Narrative 01/06/2024 4:34 PM EDT Normal LV size and wall thickness. LV systolic function is normal with EF 60 to 65%. There are no clear wall motion abnormalities. Normal diastolic function. Normal RV size and function. There is no hemodynamically significant valvular disease. Comparison is made to the prior study report dated 09/09/2022. The degree of aortic regurgitation has improved. Left Ventricle The left ventricle is normal in size. There is normal wall thickness. There is normal left ventricular systolic function. The LV ejection fraction is 64% (calculated via biplane measurement). There are no wall motion abnormalities. The E/A ratio is 0.7. The e' septal wave velocity is 5.2 cm/s. The e' lateral wave velocity is 6.1 cm/s. The average E/e' ratio is 11.9. Right Ventricle The right ventricle is normal in size. There is normal right ventricular systolic function. TAPSE is 26 mm. RV S' wave is 12.6 cm/s. Left Atrium The left atrium is normal in size. The left atrial anterior-posterior dimension is 33 mm. The left atrial volume index by BSA is 14 mL/m2. Right Atrium The right atrium is normal in size. The IVC is normal in size with normal inspiratory collapse. Mitral Valve There is anterior mitral annular calcification. There is no mitral stenosis. There is trace mitral regurgitation. Tricuspid Valve The tricuspid valve appears normal. There is no tricuspid stenosis. There is trace tricuspid regurgitation. The RV systolic pressure was calculated at 24 mmHg (using TR peak velocity of 2.3 m/s and assuming an RA pressure of 3 mmHg). Aortic Valve The aortic valve is tricuspid. Multiple leaflets are mildly thickened at the tips. There is no aortic stenosis. There is trace aortic regurgitation. The ascending aorta is mildly dilated. The ascending aortic diameter is 37 mm. Pulmonic Valve The pulmonic valve is suboptimally visualized. There is no pulmonic stenosis. There is no pulmonic regurgitation. Pericardium There is no pericardial effusion. General Findings The image quality was good (2). Technique(s) used in the evaluation: Color flow Doppler and Spectral Doppler. The predominant rhythm during the study was sinus. Comparison Findings Compared to a prior TTE on 09/09/2022, IAS/IVS The interatrial septum is suboptimally visualized. us Jv A Bigda DO CV ECHO ORDERABLES Final Result documented in this encounter Visit Diagnoses Diagnosis Pulmonary hypertension, unspecified- Primary Pulmonary hypertension, unspecified documented in this encounter Additional Health Concerns Infection Onset Date Last Indicated Resolved Time CoV-Risk 04/20/2024 04/20/2024 05/01/2024 1:22 AM EDT CoV-Risk 07/20/2024 07/20/2024 07/23/2024 9:54 AM EST COVID-19 Comment:Symptom onset = 07/20, 10 days, not immunocompromised 07/20/2024 07/23/2024 08/02/2024 1 2:18 PM EST documented as of this encounter Care Teams Brothel Keeper Relationship Specialty Start Date End Date Jv Tavera DO [email or web address] PCP - General Internal Medicine 06/14/17 03/25/25 Jv Tavera DO [address] [place] [address] [email or web address] PCP - General Internal Medicine 03/26/25 documented as of this encounter Additional Source Comments The information contained in this document represents components of the legal health record. It is not the complete legal health record.[facility]
--- OUTSIDE RECORDS SUMMARY | 2025-07-15 21:20 | XMS_ITS | Encounter Summary ---
Author Organization [facility] Address [address] [facility] [address] [place] [address] Phone Care Team Providers Care Ice Cream Man Name Role Phone TyshawnJv cuello Nicole IVY Primary Care Provider [phone] Reason for Referral * MRI/CAT Scan - New Request Specialty Diagnoses / Procedures Referred By Contac t Referred To Contact Radiology Diagnoses Nipple discharge Procedures MRI Breast (Bilateral) Nova Carroll PA [address] [facility] [place] [address] Phone: tel: fax: Referral ID Status Reason Start Date Expiration Date V isits Requested Visits Authorized [id number] New Request 05/17/2025 1 1 Encounter Details Date Type Department Care Team (Latest Contact Info) Description 05/17/2025 Transcribe Orders Virtual Department 30 [place] [address] Nova Carroll PA [address] [facility] [place] [address] Nipple discharge (Primary Dx) Social History Tobacco Use Types [...] Appointment [facility] [address] [place] [phone] Esther Bryant, OT [address] [place] [address] 07/17/2025 4:00 AM EST Appointment [facility] [address] [place] [phone] O'Malika Cedillo RN [address] [place] [address] 07/18/2025 10:45 AM EST Appointment [facility] [address] [place] [phone] Esther Bryant, OT [address] [place] [address] 07/22/2025 1:00 AM EST Appointment [facility] [address] [place] [phone] Esther Bryant, OT [address] [place] [address] 07/23/2025 12:30 AM EST Appointment [facility] [address] [place] [phone] O'Malika Cedillo RN [address] [place] [address] 07/23/2025 1:00 AM EST Appointment [facility] [address] [place] [phone] Esther Bryant, OT [address] [place] [address] 07/24/2025 1:30 PM EST Office Visit [facility] 10 [place] [address] Karina Pedraza, JOSÉ [address] [address] 07/31/2025 3:00 AM EST Appointment [facility] [address] [place] [phone] O'Nguyen, Malika Xiao RN [address] [place] [address] 08/07/2025 1:00 AM EST Appointment [facility] [address] [place] [phone] O'Nguyen, Malika Xiao RN [address] [place] [phone] 08/15/2025 Appointment [facility] [address] [place] [phone] O'Nguyen, Malika Xiao RN [address] [place] [address] 08/21/2025 2:00 PM EST Office Visit [facility] [address] [place] [address] 3rd Floor, [address] [place] [address] Yvan Bates MD [address] [place] [address] 09/04/2025 1:00 PM EST Office Visit [facility] [address] [place] [phone] Coco Smith MD [address] [place] [address] Orthopedics & Sports Medicine, [place], [place] [phone] 11/01/2025 1:30 PM EDT Telemedicine [facility] [address] [facility], 2nd Floor, [address] [place] [address] Bossman Weems MD [address] [facility] [address] [place] [address] [email or web address] 12/10/2025 2:00 PM EDT Office Visit [facility] General Surgical Care 15 [place] [address] Sarah Balderas MD 15 [facility], 2nd [place] [address] [email or web address] Scheduled Orders Name Type Priority Associated Diagnoses Orde r Schedule MRI Breast (Bilateral) Imaging Routine Nipple discharge Expected: 05/17/2025, Expires: 05/17/2026 documented as of this encounter Visit Diagnoses Diagnosis Nipple discharge- Primary Other sign and symptom in breast documented in this encounter Care Teams Ice Cream Man Relationship Specialty Start Date End Date Jv Tavera DO [address] [facility] [place] [address] [email or web address] PCP - General Internal Medicine 03/26/25 documented as of this encounter Additional Source Comments The information contained in this document represents components of the legal health record. It is not the complete legal health record.[facility]
--- OUTSIDE RECORDS SUMMARY | 2025-07-15 21:20 | XMS_ITS | Encounter Summary ---
Author Organization [facility] Address [address] [facility] [address] [place] [address] Phone Care Team Providers Care Cordwood Cutter Name Role Phone TyshawnJv cuello Primary Care Provider [phone] Liang Jv Nicole DO Primary Care Provider [phone] Encounter Details Date Type Department Care Team (Late Contact Info) Description 02/24/2021 Transcribe Orders Virtual Department 30 [place] [address] Jv Tavera DO [address] [facility] [address] [place], [place] [id number] [email or web address] Gastric contents in larynx causing other injury, subsequent encounter (Primary Dx) Social History Tobacco Use Types Packs/Day Years Used Date Smoking Tobacco: Never Smokeless Tobacco: Never Alcohol Use Standard Drinks/Week Comments Yes 0 (1 standard drink = 0.6 oz pur e alcohol) very occasional Comments No Sex and Gender Information Value Date Recorded Sex Assigned at Female 07/28/2018 8:57 AM EST Legal Sex Female 10:12 PM EDT Gender Identity Female 07/28/2018 8:57 AM EST Sexual Orientation Straight 07/28/2018 8: 57 AM EST documented as of this encounter Plan of Treatment Upcoming Encounters Date Type Department Care Team (Late Contact Info) Description 07/16/2025 10:45 AM EST Appointment [facility] 30 [place] [phone] Esther Bryant, OT [address] [place] [address] 07/17/2025 4:00 AM EST Appointment [facility] [address] [place] [phone] O'Malika Cedillo, PEARL [address] [place] [address] 07/18/2025 10:45 AM EST Appointment [facility] [address] [place] [phone] Esther Bryant, OT [address] [place] [address] 07/22/2025 1:00 AM EST Appointment [facility] [address] [place] [phone] Esther Bryant, OT [address] [place] [address] 07/23/2025 12:30 AM EST Appointment [facility] [address] [place] [phone] O'Malika Cedillo, PEARL [address] [place] [address] 07/23/2025 1:00 AM EST Appointment [facility] [address] [place] [phone] Esther Bryant, OT [address] [place] [address] 07/24/2025 1:30 PM EST Office Visit [facility] [address] [place] [address] Karina Pedraza, STEEL CHIPPER [address] [address] 07/31/2025 3:00 AM EST Appointment [facility] 30 [place] [phone] O'Nguyen, Malika Xiao RN [address] [place] [address] 08/07/2025 1:00 AM EST Appointment [facility] 30 [place] [phone] O'Nguyen, Malika Xiao RN [address] [place] [address] 08/15/2025 Appointment [facility] 30 [place] [phone] O'Nguyen, Malika Xiao RN [address] [place] [address] 08/21/2025 2:00 PM EST Office Visit [facility] [address] [place] [address] 3rd Floor, [address] [place] [address] Yvan Bates MD [address] [place] [address], [address] [address] 09/04/2025 1:00 PM EST Office Visit [facility] Orthopedics & Sports Medicine [address] [place] [address] Coco Smith MD [address] [place] [address] Orthopedics & Sports [facility], [place] [address] 11/01/2025 1:[address] [facility] [address] [place] [address], 2nd Floor, [address] [place] [address] Bossman Weems MD [address] [place] [address] [address] [place] [address] [email or web address] 12/10/2025 2:00 PM EDT Office Visit [facility] General Surgical Care 15 [place] [address] Sarah Balderas MD [address] [facility], 2nd [place] [address] [email or web address] documented as of this encounter Visit Diagnoses Diagnosis Gastric contents in larynx causing other injury, subsequent encounter- Primary documented in this encounter Additional Health Concerns Infection Onset Date Last Indicated Resolved Time CoV-Exposed Comment:Recent close contact documented in the COVID-19 PCR/PRO order 04/21/2021 04/21/2021 05/06/2021 1:23 AM E DT COVID-19 09/16/2022 09/29/2022 10/20/2022 1:21 AM EDT C. diff 09/29/2022 09/29/2022 10/29/2022 1:21 AM EDT CoV-Risk 04/20/2024 04/20/2024 05/01/2024 1:22 AM EDT CoV-Risk 07/20/2024 07/20/2024 07/23/2024 9:54 AM EST COVID-19 Comment:Symptom onset = 07/20, 10 days, not immunocompromised 07/20/2024 07/23/2024 08/02/2024 1 2:18 PM EST documented as of this encounter Care Teams Cordwood Cutter Relationship Specialty Start Date End Date Jv Tavera DO PCP - General Internal Medicine 06/14/17 03/25/25 Jv Tavera DO [address] [place] [address] [email or web address] PCP - General Internal Medicine 03/26/25 documented as of this encounter Additional Source Comments The information contained in this document represents components of the legal health record. It is not the complete legal health record.[facility]
--- OUTSIDE RECORDS SUMMARY | 2025-07-15 21:20 | XMS_ITS | Encounter Summary ---
Author Organization [facility] Address [address] [facility] [address] [place] [address] Phone Care Team Providers Care Text Transcriber Name Role Phone Jv Tavera DO Primary Care Provider [phone] Jv Tavera DO Primary Care Provider [phone] Encounter Details Date Type Department Care Team (Late st Contact Info) Description 03/20/2025 Transcribe Orders Virtual Department [address] [place] [address] Jv Tavera DO [address] [facility] [place] [address] [place] [address] [email or web address] Encounter for screening for osteoporosis (Primary Dx); Breast screening Social History Tobacco Use Types Packs/Day Years [...] housing situation today? I have jose rojo 07/23/2024 How many times have you move [...] as food, clothing, or medical care? No 07/23/2024 In the past 12 months have y ou been in a relationship with a person who hurts, threatens, or tries to control you? No 07/23/2024 Are you denied basic needs s uch as food, clothing, or medical care? No 07/23/2024 In the past 12 months have y ou been in a relationship with a person who hurts, threatens, or tries to control you? No 07/23/2024 Comments No Sex and Gender Information Value [...] Appointment [facility] [address] [place] [address] Esther Bryant, OT [address] [place] [address] [email or web address] 07/17/2025 4:00 AM EST Appointment [facility] [address] [place] [address] O'Malika Cedillo, PEARL [address] [place] [address] [email or web address] 07/18/2025 10:45 AM EST Appointment [facility] [address] [place] [address] Esther Bryant, OT [address] [place] [address] [email or web address] 07/22/2025 1:00 AM EST Appointment [facility] [address] [place] [phone] Esther Bryant, OT [address] [place] [address] [email or web address] 07/23/2025 12:30 AM EST Appointment [facility] [address] [place] [phone] O'Malika Cedillo, PEARL [address] [place] [address] [email or web address] 07/23/2025 1:00 AM EST Appointment [facility] [address] [place] [phone] Esther Bryatn, OT [address] [place] [address] [email or web address] 07/24/2025 1:30 PM EST Office Visit [facility] [address] [place] [address] Karina Pedraza, FREIGHT SEPARATOR [address] [address] 07/31/2025 3:00 AM EST Appointment [facility] [address] [place] [address] O'Nguyen, Malika Xiao RN [address] [place] [address] 08/07/2025 1:00 AM EST Appointment [facility] [address] [place] [address] O'Nguyen, Malika Xiao RN [address] [place] [address] 08/15/2025 Appointment [facility] [address] [place] [address] O'Nguyen, Malika Xiao RN [address] [place] [address] 08/21/2025 2:00 PM EST Office Visit [facility] [address] [place] [address] 3rd Floor, [address] [place] [address] Yvan Bates MD [address] [place] [address] 09/04/2025 1:00 PM EST Office Visit [facility] Medicine [address] [place] [address] Coco Smith MD [address] [place] [address] Orth[facility] [place] [address] 11/01/2025 1:30 PM EDT Telemedicine [facility] [address] [place] [address], 2nd Floor, [address] [place] [address] Bossman Weems MD [address] [place] [address] [address] [place] [address] [email or web address] 12/10/2025 2:00 PM EDT Office Visit [facility] General Surgical Care 15 [place] [address] Sarah Balderas MD [address] [facility], 2nd [place] [address] [email or web address] documented as of this encounter Visit Diagnoses Diagnosis Encounter for screening for osteoporosis- Primary Breast screening Breast screening, unspecified documented in this encounter Care Teams Text Transcriber Relationship Specialty Start Date End Date Jv Tavera DO PCP - General Internal Medicine 06/14/17 03/25/25 Jv Tavera DO [address] [place] [address] PCP - General Internal Medicine 03/26/25 documented as of this encounter Additional Source Comments The information contained in this document represents components of the legal health record. It is not the complete legal health record.[facility]
--- OUTSIDE RECORDS SUMMARY | 2025-07-15 21:20 | XMS_ITS | Encounter Summary ---
Author Organization [facility] Address [address] [place] [address] Phone Care Team Providers Care Quality Checker Name Role Phone Jv Tavera DO Primary Care Provider [phone] TyshawnJv cuello DO Primary Care Provider [phone] Encounter Details Date Type Department Care Team (Late st Contact Info) Description 02/09/2024 Procedure Pass [facility] [address] [place] [address] Social History Tobacco Use Types Packs/Day Years [...] is your housing situation today? I have joes sing 01/29/2024 How many times have you [...] 07/16/2025 10:45 AM EST Appointment [facility] [address] [place] [phone] Esther Bryant, OT [address] [place] [address] [email or web address] 07/17/2025 4:00 AM EST Appointment [facility] [address] [place] [phone] Michelle'Malika Cedillo, RN [address] [place] [address] 07/18/2025 10:45 AM EST Appointment [facility] [address] [place] [phone] Esther Bryant, OT [address] [place] [address] [email or web address] 07/22/2025 1:00 AM EST Appointment [facility] [address] [place] [phone] Esther Bryant, OT [address] [place] [address] 07/23/2025 12:30 AM EST Appointment [facility] [address] [place] [address] O'Malika Cedillo RN [address] [place] [phone] 07/23/2025 1:00 AM EST Appointment [facility] [address] [place] [address] Esther Bryant, OT [address] [place] [address] 07/24/2025 1:30 PM EST Office Visit [facility] [address] [place] [address] Karina Pedraza, PEANUT CLEANER [address] [place] [phone] [email or web address] 07/31/2025 3:00 AM EST Appointment [facility] [address] [place] [address] O'Malika Cedillo RN [address] [place] [address] 08/07/2025 1:00 AM EST Appointment [facility] [address] [place] [address] O'Malika Cedillo RN [address] [place] [address] 08/15/2025 Appointment [facility] [address] [place] [address] O'Malika Cedillo RN [address] [place] [address] 08/21/2025 2:00 PM EST Office Visit [facility] [address] [place] [address] 3rd Floor, [address] [place] [address] Yvan Bates MD [address] [facility], [address] [place] [address] [email or web address] 09/04/2025 1:00 PM EST Office Visit [facility] Sports Medicine [address] [place] [address] Coco Smith MD [address] [place] [address] Orthopedics & Sports Medicine, [facility] [place] [address] [email or web address] 11/01/2025 1:30 PM EDT Telemedicine [facility] [address] [facility], 2nd Floor, [address] [place] [address] Bossman Weems MD [address] [place] [address] [place] [address] [email or web address] 12/10/2025 2:00 PM EDT Office Visit [facility] General Surgical Care 15 [place] [address] Sarah Balderas MD 15 [facility], 2nd [place] [address] [email or web address] documented as of this encounter Visit Diagnoses Not on filedocumented in this encounter Additional Health Concerns Infection Onset Date Last Indicated Resolved Time CoV-Risk 04/20/2024 04/20/2024 05/01/2024 1:22 AM EDT CoV-Risk 07/20/2024 07/20/2024 07/23/2024 9:54 AM EST COVID-19 Comment:Symptom onset = 07/20, 10 days, not immunocompromised 07/20/2024 07/23/2024 08/02/2024 1 2:18 PM EST documented as of this encounter Care Teams Quality Checker Relationship Specialty Start Date End Date Jv Tavera DO [email or web address] PCP - General Internal Medicine 06/14/17 03/25/25 Jv Tavera DO [address] [place] [address] [email or web address] PCP - General Internal Medicine 03/26/25 documented as of this encounter Additional Source Comments The information contained in this document represents components of the legal health record. It is not the complete legal health record.[facility]"
--- OUTSIDE RECORDS SUMMARY | 2025-07-15 21:20 | XMS_ITS | Encounter Summary ---
Author Organization [facility] Address [address] [place] [address] Phone Care Team Providers Care Business Intelligence Reporting Analyst Name Role Phone Jv Tavera DO Primary Care Provider [phone] TyshawnJv cuello DO Primary Care Provider [phone] Encounter Details Date Type Department Care Team (Late st Contact Info) Description 03/22/2025 Procedure Pass [facility], Ct Scan - [address] [address] Social History Tobacco Use Types Packs/Day Years [...] Appointment [facility] [address] [place], [place] [phone] Esther Bryant, OT [address] [place] [address] 07/17/2025 4:00 AM EST Appointment [facility] [address] [place] [address] O'Malika Cedillo RN [address] [place] [address] [email or web address] 07/18/2025 10:45 AM EST Appointment [facility] [address] [place] [address] Esther Bryant, OT [address] [place] [address] 07/22/2025 1:00 AM EST Appointment [facility] [address] [place] [address] Esther Bryant, OT [address] [place] [address] [email or web address] 07/23/2025 12:30 AM EST Appointment [facility] [address] [place] [phone] O'Malika Cedillo RN [address] [place] [address] [email or web address] 07/23/2025 1:00 AM EST Appointment [facility] [address] [place] [address] Esther Bryant, OT [address] [place] [address] 07/24/2025 1:30 PM EST Office Visit [facility] [address] [place] [address] Karina Pedraza, CHOCOLATE TEMPERER [address] [place] [address] 07/31/2025 3:00 AM EST Appointment [facility] [address] [place] [address] O'Malika Cedillo RN [address] [place] [address] 08/07/2025 1:00 AM EST Appointment [facility] [address] [place] [address] O'Nguyen, Malika Xiao RN [address] [place] [address] 08/15/2025 Appointment [facility] [address] [place] [address] O'Nguyen, Mailka Xiao RN [address] [place] [address] 08/21/2025 2:00 PM EST Office Visit [facility] [address] [facility] 3rd Floor, [address] [place] [address] Yvan Bates MD [address] [facility], [address] [place] [address] [email or web address] 09/04/2025 1:00 PM EST Office Visit [facility] Sports Medicine [address] [place] [address] Coco Smith MD [address] [place] [address] Orthopedics & Sports Medicine, [facility] [address] [email or web address] 11/01/2025 1:30 PM EDT Telemedicine [facility] [address] [place] [address], 2nd Floor, [address] [place] [address] Bossman Weems MD [address] [place] [address] [address] [place] [address] [email or web address] 12/10/2025 2:00 PM EDT Office Visit [facility] General Surgical Care 15 [place] [address] Sarah Balderas MD 15 [facility], 2nd [place] [address] documented as of this encounter Visit Diagnoses Not on filedocumented in this encounter Care Teams Business Intelligence Reporting Analyst Relationship Specialty Start Date End Date Jv Tavera DO PCP - General Internal Medicine 06/14/17 03/25/25 Jv Tavera DO [address] [place] [address] [place] [address] PCP - General Internal Medicine 03/26/25 documented as of this encounter Additional Source Comments The information contained in this document represents components of the legal health record. It is not the complete legal health record.[facility]
--- OUTSIDE RECORDS SUMMARY | 2025-07-15 21:20 | XMS_ITS | Encounter Summary ---
Author Organization [facility] Address [address] [facility] [address] [address] [place] [address] Phone Care Team Providers Care Cornice Maker Name Role Phone Jv Tavera DO Primary Care Provider [phone] Jv Tavera DO Primary Care Provider [phone] Reason for Referral * MRI/CAT Scan - Closed Specialty Diagnoses / Procedures Referred By Rylie [email or web address] Referred To Contact Radiology Diagnoses Abnormal results of pulmonary function studies Procedures CT Chest Jv Tavera DO Phone: tel: fax: [email or web address] Referral ID Status Reason Start Date Expiration Date Visits Re quested Visits Authorized [id number] Closed 01/27/2024 01/26/2025 1 1 Encounter Details Date Type Department Care Team (Late st Contact Info) Description 01/27/2024 Transcribe Orders Virtual Department [address] [place] [address] Jv Tavera DO [address] [facility] [place] [address] [email or web address] Abnormal results of pulmonary function studies (Primary Dx) Social History Tobacco Use Types [...] 8:38 PM EDT Corrina Person RN * [place] Suicide Severity Rating Scale (Screener/Recent Self-Report) Question [...] Appointment [facility] [address] [place] [phone] Esther Bryant, OT [address] [place] [address] [email or web address] 07/17/2025 4:00 AM EST Appointment [facility] [address] [place] [phone] O'Malika Cedillo RN [address] [place] [address] [email or web address] 07/18/2025 10:45 AM EST Appointment [facility] [address] [place] [phone] Esther Bryant, OT [address] [place] [address] [email or web address] 07/22/2025 1:00 AM EST Appointment [facility] [address] [place] [phone] Esther Bryant, OT [address] [place] [address] [email or web address] 07/23/2025 12:30 AM EST Appointment [facility] [address] [place] [phone] OMalika Blackman RN [address] [place] [address] [email or web address] 07/23/2025 1:00 AM EST Appointment [facility] [address] [place] [phone] Esther Bryant, OT [address] [place] [address] 07/24/2025 1:30 PM EST Office Visit [facility] 10 [place] [address] Karina Pedraza, MANAGER COMMUNITY [address] [address] 07/31/2025 3:00 AM EST Appointment [facility] 30 [place] [address] O'Nguyen, Malika Xiao RN [address] [place] [address] 08/07/2025 1:00 AM EST Appointment [facility] 30 [place] [address] O'Nguyen, Malika Xiao RN [address] [place] [address] 08/15/2025 Appointment [facility] [address] [place] [phone] O'Nguyen, Malika Xiao RN [address] [place] [address] 08/21/2025 2:00 PM EST Office Visit [facility] [address] [place] [address] 3rd Floor, [address] [place] [address] Yvan Bates MD [address] [place] [address], [address] [address] 09/04/2025 1:00 PM EST Office Visit [facility] Sports Medicine [address] [place] [address] Coco Smith MD [address] [place] [address] Orthopedics & Sports [place] [address] [email or web address] 11/01/2025 1:30 PM EDT Telemedicine [facility] [address] [facility], 2nd Floor, [address] [place] [address] Bossman Weems MD [address] [place] [address] [address] [place] [address] [email or web address] 12/10/2025 2:00 PM EDT Office Visit [facility] General Surgical Care [address] [place] [address] Sarah Balderas MD 15 [facility], 2nd [place] [address] [email or web address] documented as of this encounter Results * CT CHEST WITHOUT CONTRAST (03/07/2024 2:07 PM EDT) Anatomical Region Laterality Modality Chest Computed Tomogra phy 03/13/2024 10:0 5 AM EDT Impressions 03/13/2024 10:16 AM EDT 1. No convincing evidence of paulette lung fibrosis. Likely dependent atelectasis along the posterior lower lobes. If concern for interstitial lung disease remains, dedicated ILD chest CT protocol could be obtained for further assessment with prone images. 2. New rhomboid-shaped peribronchial opacity in the right upper lobe may represent a nodule, lymph node, or mucus plugging. Recommend [address] follow-up for reassessment. The Radiologist Diagnostic Certainty Scale is a guide that conveys to patients and providers a radiologist's subjective diagnostic confidence: Most likely means very high probability Likely means high probability May represent means intermediate probability Unlikely means low probability Very unlikely means very low probability You can find out more about our efforts to improve the clarity of radiology reports for our patients and providers by visiting [email or web address] A clinically significant result was initiated on 03/13/2024 10:16 AM, Message ID [id number]. Narrative 03/13/2024 10:[address] CHEST WITHOUT CONTRAST Referring clinician's provided indication for this examination in [facility]: Outside Radiology Order; decrease diffusion capacity of lung TECHNIQUE: Multidetector CT of the chest was performed without intravenous contrast using tailored dose modulation. COMPARISON: CT CHEST WITHOUT CONTRAST FINDINGS: Devices/Tubes/Lines: None. Lungs: Biapical scarring. Bibasilar subsegmental atelectasis. Faint appearance of subpleural reticulation and linear opacities along the posterior lower lobes is favored to represent dependent atelectasis.No convincing subpleural reticulation or honeycombing. No new suspicious lung nodule. There is a new rhomboid shaped peribronchial opacity in the anterior right upper lobe measuring 7 x 3 mm (4; 22) that may represent mucus plugging or peribronchial nodule. A 2 mm nodule in the left upper lobe as slightly more conspicuous than prior (4; 106). Otherwise, similar subcentimeter lung and fissural nodules Pleura: No pleural effusion or pneumothorax. Mediastinum: Increased enlargement of the left cardiac atrium. No significant pericardial effusion. Enlarged moderate sized hiatal hernia containing the gastric fundus. Similar patulous esophagus. No obvious thyroid nodule. Mild amount of coronary calcifications. Lymph Nodes: No enlarged supraclavicular, axillary, mediastinal, or hilar lymph nodes. Upper Abdomen: Cholecystectomy. Similar liver hypodensities, incompletely characterized but unchanged. Atherosclerotic aorta. Colonic diverticulosis. Chest Wall: No chest wall mass. Bones: No suspicious lytic or blastic lesions. Degenerative changes in the spine. Diffuse osteopenia. Procedure Note Ginger Rincon MD - 03/13/2024 CT CHEST WITHOUT CONTRAST Referring clinician's provided indication for this examination in [facility]:Outside Radiology Order; decrease diffusion capacity of lung TECHNIQUE: Multidetector CT of the chest was performed without intravenouscontrast using tailored dose modulation. COMPARISON: CT CHEST WITHOUT CONTRAST FINDINGS: Devices/Tubes/Lines: None. Lungs: Biapical scarring. Bibasilar subsegmental atelectasis. Faintappearance of subpleural reticulation and linear opacities along theposterior lower lobes is favored to represent dependent atelectasis.Noconvincing subpleural reticulation or honeycombing. No new suspicious lung nodule. There is a new rhomboid shapedperibronchial opacity in the anterior right upper lobe measuring 7 x 3 mm(4; 22) that may represent mucus plugging or peribronchial nodule. A 2 mmnodule in the left upper lobe as slightly more conspicuous than prior (4;106). Otherwise, similar subcentimeter lung and fissural nodules Pleura: No pleural effusion or pneumothorax. Mediastinum: Increased enlargement of the left cardiac atrium. Nosignificant pericardial effusion. Enlarged moderate sized hiatal herniacontaining the gastric fundus. Similar patulous esophagus. No obviousthyroid nodule. Mild amount of coronary calcifications. Lymph Nodes: No enlarged supraclavicular, axillary, mediastinal, or hilarlymph nodes. Upper Abdomen: Cholecystectomy. Similar liver hypodensities, incompletelycharacterized but unchanged. Atherosclerotic aorta. Colonicdiverticulosis. Chest Wall: No chest wall mass. Bones: No suspicious lytic or blastic lesions. Degenerative changes in thespine. Diffuse osteopenia. IMPRESSION: 1. No convincing evidence of paulette lung fibrosis. Likely dependentatelectasis along the posterior lower lobes. If concern for interstitiallung disease remains, dedicated ILD chest CT protocol could be obtainedfor further assessment with prone images. 2. New rhomboid-shaped peribronchial opacity in the right upper lobe mayrepresent a nodule, lymph node, or mucus plugging. Recommend [address] follow-up for reassessment. The Radiologist Diagnostic Certainty Scale is a guide that conveys topatients and providers a radiologist's subjective diagnostic confidence: Most likely means very high probability Likely means high probability May represent means intermediate probability Unlikely means low probability Very unlikely means very low probability You can find out more about our efforts to improve the clarity ofradiology reports for our patients and providers by [email or web address] A clinically significant result was initiated on 03/13/2024 10:16 AM,Message ID [id number]. us Jv A Bigda DO IMG CT CHEST Final Result documented in this encounter Visit Diagnoses Diagnosis Abnormal results of pulmonary function studies- Primary Nonspecific abnormal results of pulmonary system function study Abnormal results of pulmonary function studies Nonspecific abnormal results of pulmonary system function study documented in this encounter Additional Health Concerns Infection Onset Date Last Indicated Resolved Time CoV-Risk 04/20/2024 04/20/2024 05/01/2024 1:22 AM EDT CoV-Risk 07/20/2024 07/20/2024 07/23/2024 9:54 AM EST COVID-19 Comment:Symptom onset = 07/20, 10 days, not immunocompromised 07/20/2024 07/23/2024 08/02/2024 1 2:18 PM EST documented as of this encounter Care Teams Cornice Maker Relationship Specialty Start Date End Date Jv Tavera DO PCP - General Internal Medicine 06/14/17 03/25/25 Jv Tavera DO [address] [place] [address] PCP - General Internal Medicine 03/26/25 documented as of this encounter Additional Source Comments The information contained in this document represents components of the legal health record. It is not the complete legal health record.[facility]
--- OUTSIDE RECORDS SUMMARY | 2025-07-15 21:20 | XMS_ITS | Encounter Summary ---
Author Organization [facility] Address [address] [facility] [address] [place] [address] Phone Care Team Providers Care Compilation Clerk Name Role Phone Jv Tavera DO Primary Care Provider [phone] Jv Tavera DO Primary Care Provider [phone] Encounter Details Date Type Department Care Team (Late st Contact Info) Description 06/06/2024 Procedure Pass [facility], Ct Scan - [address] [address] Social History Tobacco Use Types Packs/Day Years [...] got money to buy more. Never True 05/21/2024 Within the past 6 months the food we bought just didn't last and we didn't have enough money to get more. Never True Residential Stability Answer Date Recor ded What is your housing situation today? I have jose sing 05/21/2024 How many times have you move d in the past 12 months? Zero (I did not move) 05/21/2024 Paying for Meds Answer Date Recorded Do you have trouble paying for medicines? No 05/21/2024 Paying Utility Bills Answer Date Record ed Do you have trouble paying your heating or elect ricity bill? No 05/21/2024 Transportation Answer Date Recorded Has the lack of transportati on kept you from medical appointments or from getting medications? No 05/21/2024 Digital Access Answer Date Recorded No 05/21/2024 Yes 05/21/2024 Do you have reliable internet access at home? Ye s 05/21/2024 Do you have a device (e.g., phone, tablet, computer) with a working camera? Yes 05/21/2024 Intimate Partner Violence Answer Date R ecorded Are you denied basic needs s uch as food, clothing, or medical care? No 04/20/2024 In the past 12 months have y ou been in a relationship with a person who hurts, threatens, or tries to control you? No 04/20/2024 Are you denied basic needs s uch as food, clothing, or medical care? No 04/20/2024 In the past 12 months have y ou been in a relationship with a person who hurts, threatens, or tries to control you? No 04/20/2024 Comments No Sex and Gender Information Value [...] [facility] [address] [place], [place] [phone] Esther Bryant, OT [address] [place] [address] [email or web address] 07/17/2025 4:00 AM EST Appointment [facility] [address] [place], [place] [phone] Malika Mcintosh, RN [address] [place] [address] [email or web address] 07/18/2025 10:45 AM EST Appointment [facility] [address] [place] [address] Esther Bryant, OT [address] [place] [address] [email or web address] 07/22/2025 1:00 AM EST Appointment [facility] [address] [place] [address] Esther Bryant, OT [address] [place] [address] [email or web address] 07/23/2025 12:30 AM EST Appointment [facility] [address] [place] [phone] O'Nguyen, Malika Xiao RN [address] [place] [address] [email or web address] 07/23/2025 1:00 AM EST Appointment [facility] [address] [place] [address] Esther Bryant, OT [address] [place] [address] [email or web address] 07/24/2025 1:30 PM EST Office Visit [facility] [address] [place] [address] Karina Pedraza, MARINE SERVICE MANAGER [address] [place] [address] 07/31/2025 3:00 AM EST Appointment [facility] [address] [place], [place] [phone] O'Nguyen, Malika Xiao, PEARL [address] [place] [address] 08/07/2025 1:00 AM EST Appointment [facility] [address] [place] [address] O'Malika Cedillo RN [address] [place] [address] 08/15/2025 Appointment [facility] [address] [place] [address] Malika Mcintosh RN [address] [place] [address] 08/21/2025 2:00 PM EST Office Visit [facility] [address] [facility] 3rd Floor, [address] [place] [address] Yvan Bates MD [address] [facility], [address] [place] [address] 09/04/2025 1:00 PM EST Office Visit [facility] [address] [place] [address] Coco Smith MD [address] [place] [address] Orthopedics & Sports Medicine, [place] [address] 11/01/2025 1:30 PM EDT Telemedicine [facility] [address] [place] [address], 2nd Floor, [address] [place] [address] Bossman Weems MD [address] [place] [address] [address] [place] [address] [email or web address] 12/10/2025 2:00 PM EDT Office Visit [facility] 15 [place] [address] Sarah Balderas MD [address] [facility], 2nd [place] [address] documented as of this encounter Visit Diagnoses Not on filedocumented in this encounter Additional Health Concerns Infection Onset Date Last Indicated Resolved Time CoV-Risk 07/20/2024 07/20/2024 07/23/2024 9:54 AM EST COVID-19 Comment:Symptom onset = 07/20, 10 days, not immunocompromised 07/20/2024 07/23/2024 08/02/2024 1 2:18 PM EST documented as of this encounter Care Teams Compilation Clerk Relationship Specialty Start Date End Date Jv Tavera DO PCP - General Internal Medicine 06/14/17 03/25/25 Jv Tavera DO [address] [place] [address] [email or web address] PCP - General Internal Medicine 03/26/25 documented as of this encounter Additional Source Comments The information contained in this document represents components of the legal health record. It is not the complete legal health record.[facility]
--- OUTSIDE RECORDS SUMMARY | 2025-07-15 21:20 | XMS_ITS | Encounter Summary ---
Author Organization [facility] Address [address] [facility] [address] [place] [address] Phone Care Team Providers Care Roller Inspector And Mender Name Role Phone Jv Tavera Primary Care Provider [phone] Encounter Details Date Type Department Care Team (Late st Contact Info) Description 04/11/2025 Procedure Pass [facility], [facility] [address] [place] [address] Social History Tobacco Use Types Packs/Day Years [...] [facility] [address] [place], [place] [phone] Esther Bryant, OT [address] [place] [address] 07/17/2025 4:00 AM EST Appointment [facility] [address] [place], [place] [phone] O'Nguyen, Malika Xiao RN [address] [place] [address] 07/18/2025 10:45 AM EST Appointment [facility] [address] [place] [address] Esther Bryant, OT [address] [place] [address] 07/22/2025 1:00 AM EST Appointment [facility] [address] [place] [phone] Esther Bryant, OT [address] [place] [address] 07/23/2025 12:30 AM EST Appointment [facility] [address] [place] [phone] O'Nguyen, Malika Xiao RN [address] [place] [address] 07/23/2025 1:00 AM EST Appointment [facility] [address] [place] [phone] Esther Bryant, OT [address] [place] [address] 07/24/2025 1:30 PM EST Office Visit [facility] [address] [place] [address] Karina Pedraza, JOSÉ [address] [place] [address] 07/31/2025 3:00 AM EST Appointment [facility] [address] [place] [phone] O'Nguyen, Malika Xiao RN [address] [place] [address] 08/07/2025 1:00 AM EST Appointment [facility] [address] [place] [address] O'Nguyen, Malika Xiao RN [address] [place] [address] 08/15/2025 Appointment [facility] [address] [place] [address] O'Nguyen, Malika Xiao RN [address] [place] [address] 08/21/2025 2:00 PM EST Office Visit [facility] [address] [facility] 3rd Floor, [address] [place] [address] Yvan Bates MD 22 [facility] 301 [place] [address] 09/04/2025 1:00 PM EST Office Visit [facility] Orthopedics [facility] Sports Medicine [address] [place] [address] Coco Smith MD [address] [place] [address] Orthopedics & Sports Medicine, [facility] [place] [address] 11/01/2025 1:30 PM EDT Telemedicine [facility] [address] [facility], 2nd Floor, [address] [place] [address] Bossman Weems MD [address] [place] [address] [address] [place] [address] [email or web address] 12/10/2025 2:00 PM EDT Office Visit [facility] General Surgical Care 15 [place] [address] Sarah Balderas MD 15 [facility], 2nd [place] [address] documented as of this encounter Visit Diagnoses Not on filedocumented in this encounter Care Teams Roller Inspector And Mender Relationship Specialty Start Date End Date Jv Tavera DO 179 [place] [address] PCP - General Internal Medicine 03/26/25 documented as of this encounter Additional Source Comments The information contained in this document represents components of the legal health record. It is not the complete legal health record.[facility]
--- OUTSIDE RECORDS SUMMARY | 2025-07-15 21:20 | XMS_ITS | Encounter Summary ---
Author Organization [facility] Address [address] [facility] [address] [place] [address] Phone Care Team Providers Care Supervisor Of Officials Name Role Phone Jv Tavera DO Primary Care Provider [phone] Jv Tavera DO Primary Care Provider [phone] Encounter Details Date Type Department Care Team (Late st Contact Info) Description 03/09/2021 Procedure Pass [facility] [address] [facility], 5th [place] [address] Social History Tobacco Use Types Packs/Day Years [...] [facility] [address] [place] [phone] Esther Bryant, OT 168 [place] [address] [email or web address] 07/17/2025 4:00 AM EST Appointment [facility] [address] [place] [phone] Michelle'Malika Cedillo RN [address] [place] [address] [email or web address] 07/18/2025 10:45 AM EST Appointment [facility] [address] [place] [phone] Esther Bryant, OT [address] [place] [address] [email or web address] 07/22/2025 1:00 AM EST Appointment [facility] [address] [place] [phone] Esther Bryant, OT [address] [place] [address] [email or web address] 07/23/2025 12:30 AM EST Appointment [facility] [address] [place] [address] O'Malika Cedillo RN [address] [place] [address] [email or web address] 07/23/2025 1:00 AM EST Appointment [facility] [address] [place] [address] Esther Bryant, OT [address] [place] [address] [email or web address] 07/24/2025 1:30 PM EST Office Visit [facility] [address] [place] [address] Karina Pedraza, HIGHWAY TECHNICIAN [address] [place] [address] 07/31/2025 3:00 AM EST Appointment [facility] [address] [place] [address] O'Malika Cedillo RN [address] [place] [address] 08/07/2025 1:00 AM EST Appointment [facility] [address] [place] [address] O'Nguyen, Malika Xiao RN 168 [place] [address] 08/15/2025 Appointment [facility] [address] [place] [address] O'Nguyen, Malika Xiao RN 168 [place] [address] 08/21/2025 2:00 PM EST Office Visit [facility] [address] [facility] 3rd Floor, [address] [place] [address] Yvan Bates MD [address] [facility], [address] [place] [address] 09/04/2025 1:00 PM EST Office Visit [facility] Orth[facility]ics & Sports Medicine [address] [place] [address] Coco Smith MD [address] [place] [address] Orthopedics & Sports Medicine, [facility] [address] 11/01/2025 1:30 PM EDT Telemedicine [facility] [address] [facility], 2nd Floor, [address] [place] [address] Bossman Weems MD [address] [place] [address] [address] [place] [address] [email or web address] 12/10/2025 2:00 PM EDT Office Visit [facility] General Surgical Care 15 [place] [address] Sarah Balderas MD [address] [facility], 2nd [place] [address] [email or web address] documented as of [...] documented as of this encounter Care Teams Supervisor Of Officials Relationship Specialty Start Date End Date Jv Tavera DO PCP - General Internal Medicine 06/14/17 03/25/25 Jv Tavera DO [address] [place] [address] PCP - General Internal Medicine 03/26/25 documented as of this encounter Additional Source Comments The information contained in this document represents components of the legal health record. It is not the complete legal health record.[facility]
--- OUTSIDE RECORDS SUMMARY | 2025-07-15 21:20 | XMS_ITS | Encounter Summary ---
Author Organization [facility] Address [address] [facility] [address] [place] [address] Phone Care Team Providers Care Nuclear Operations Specialist Name Role Phone Jv Tavera DO Primary Care Provider [phone] Jv Tavera DO Primary Care Provider [phone] Encounter Details Date Type Department Care Team (Late st Contact Info) Description 01/29/2024 Procedure Pass [facility], Ct Scan - [address] [address] Social History Tobacco Use Types Packs/Day Years [...] 8:38 PM EDT Corrina Person RN * Supai Suicide Severity Rating Scale (Screener/Recent Self-Report) Question [...] Description 07/16/2025 10:45 AM EST Appointment [facility] [address] [place] [phone] Esther Bryant, OT [address] [place] [address] 07/17/2025 4:00 AM EST Appointment [facility] [address] [place] [address] Michelle'Malika Cedillo RN [address] [place] [address] [email or web address] 07/18/2025 10:45 AM EST Appointment [facility] [address] [place] [phone] Esther Bryant, OT [address] [place] [address] [email or web address] 07/22/2025 1:00 AM EST Appointment [facility] [address] [place] [address] Esther Bryant, OT [address] [place] [address] [email or web address] 07/23/2025 12:30 AM EST Appointment [facility] [address] [place] [address] O'Malika Cedillo RN [address] [place] [address] [email or web address] 07/23/2025 1:00 AM EST Appointment [facility] [address] [place] [address] Esther Bryant, OT [address] [place] [address] [email or web address] 07/24/2025 1:30 PM EST Office Visit [facility] [address] [place] [address] Karina Pedraza, RAILROAD SURVEYOR [address] [place] [address] 07/31/2025 3:00 AM EST Appointment [facility] [address] [place] [phone] O'Malika Cedillo RN [address] [place] [address] 08/07/2025 1:00 AM EST Appointment [facility] [address] [place] [address] O'Nguyen, Malika Xiao RN [address] [place] [address] 08/15/2025 Appointment [facility] [address] [place] [address] O'Nguyen, Malika Xiao RN [address] [place] [address] 08/21/2025 2:00 PM EST Office Visit [facility] [address] [facility] 3rd Floor, [address] [place] [address] Yvan Bates MD [address] [facility], [address] [place] [address] 09/04/2025 1:00 PM EST Office Visit [facility]ics & Sports Medicine [address] [place] [address] Coco Smith MD [address] [place] [address] Orthopedics & Sports Medicine, [facility] [place] [address] 11/01/2025 1:30 PM EDT Telemedicine [facility] [address] [facility], 2nd Floor, [address] [place] [address] Bossman Weems MD [address] [place] [address] [address] [place] [address] [email or web address] 12/10/2025 2:00 PM EDT Office Visit [facility] General Surgical Care 15 [place] [address] Sarah Balderas MD [address] [facility], 2nd [place] [address] documented as of this encounter Visit Diagnoses Not on filedocumented in this encounter Additional Health Concerns Infection Onset Date Last Indicated Resolved Time CoV-Risk 04/20/2024 04/20/2024 05/01/2024 1:22 AM EDT CoV-Risk 07/20/2024 07/20/2024 07/23/2024 9:54 AM EST COVID-19 Comment:Symptom onset = 07/20, 10 days, not immunocompromised 07/20/2024 07/23/2024 08/02/2024 1 2:18 PM EST documented as of this encounter Care Teams Nuclear Operations Specialist Relationship Specialty Start Date End Date Jv Tavera DO PCP - General Internal Medicine 06/14/17 03/25/25 Jv Tavera DO [address] [place] [address] PCP - General Internal Medicine 03/26/25 documented as of this encounter Additional Source Comments The information contained in this document represents components of the legal health record. It is not the complete legal health record.[facility]
--- OUTSIDE RECORDS SUMMARY | 2025-07-15 21:20 | XMS_ITS | Encounter Summary ---
Author Organization [facility] Address [address] [facility] [address] [place] [address] Phone Care Team Providers Care Sheep Shearer Name Role Phone Jv Tavera DO Primary Care Provider [phone] Jv Tavera DO Primary Care Provider [phone] Encounter Details Date Type Department Care Team (Late st Contact Info) Description 06/29/2017 Ancillary Orders Virtual Department 30 [place] [address] Jv Tavera DO [address] [facility] [place] [address] [place] [address] Breast screening Social History Tobacco Use Types Packs/Day Years Used Date Smoking Tobacco: Never Assessed Comments Unknown Sex and Gender Information Value Date Recorded Sex Assigned at Female 07/28/2018 8:57 AM EST Legal Sex Female 10:12 PM EDT Gender Identity Female 07/28/2018 8:57 AM EST Sexual Orientation Straight 07/28/2018 8: 57 AM EST documented as of this encounter Plan of Treatment Upcoming Encounters Date Type Department Care Team (Late st Contact Info) Description 07/16/2025 10:45 AM EST Appointment [facility] 30 [place] [address] Esther Bryant, OT [address] [place] [address] [email or web address] 07/17/2025 4:00 AM EST Appointment [facility] [address] [place] [phone] O'Malika Cedillo RN 168 [place] [address] [email or web address] 07/18/2025 10:45 AM EST Appointment [facility] [address] [place] [phone] Esther Bryant, OT [address] [place] [address] [email or web address] 07/22/2025 1:00 AM EST Appointment [facility] [address] [place] [phone] Esther Bryant, OT [address] [place] [address] [email or web address] 07/23/2025 12:30 AM EST Appointment [facility] [address] [place] [phone] O'Malika Cedillo, PEARL [address] [place] [address] [email or web address] 07/23/2025 1:00 AM EST Appointment [facility] [address] [place] [address] Esther Bryant, OT [address] [place] [address] [email or web address] 07/24/2025 1:30 PM EST Office Visit [facility] [address] [place] [address] Karina Pedraza, JOSÉ [address] [place] [address] 07/31/2025 3:00 AM EST Appointment [facility] [address] [place] [address] O'Malika Cedillo, PEARL [address] [place] [address] 08/07/2025 1:00 AM EST Appointment [facility] 30 [place] [address] O'Malika Cedillo RN [address] [place] [address] 08/15/2025 Appointment [facility] [address] [place] [address] O'Nguyen, Malika Xiao RN [address] [place] [address] 08/21/2025 2:00 PM EST Office Visit [facility] [address] [facility] 3rd Floor, [address] [place] [address] Yvan Bates MD 22 [facility], [address] [place] [address] [email or web address] 09/04/2025 1:00 PM EST Office Visit [facility] Orthopedics & Sports Medicine [address] [place] [address] Coco Smith MD [address] [place] [address] Orthopedics & Sports Medicine, [facility] [place] [address] [email or web address] 11/01/2025 1:30 PM EDT Telemedicine [facility] [address] [facility], 2nd Floor, [address] [place] [address] Bossman Weems MD [address] [place] [address] [address] [place] [address] [email or web address] 12/10/2025 2:00 PM EDT Office Visit [facility] General Surgical Care 15 [place] [address] Sarah Balderas MD 15 [facility], 2nd [place] [address] [email or web address] documented as of this encounter Results * BI MAMMOGRAM SCREENING WITH TOMOSYNTHESIS WITH CAD (BILATERAL) (08/09/2017 3:06 PM EST) Anatomical Region Laterality Modality Breast Left, Breast Right, Breast Bilateral Bila teral Mammography 08/09/2017 5:14 PM EST Impressions 08/09/2017 5:18 PM EST No mammographic signs of malignancy. Annual screening is recommended. BI-RADS CATEGORY: 2 - Benign finding. DENSITY: There are scattered fibroglandular densities. POS - CDHMAMA Narrative 08/09/2017 5:18 PM EST Bilateral mammography is performed in conjunction with computed aided detection. 3-D tomography along with 2-D C view imaging was also performed. Comparison made to previous dated as far back as 06/19/2010 and as recent as 06/08/2016. No suspicious masses, areas of architectural distortion or suspicious microcalcifications. Stable bilateral vascular calcifications. Stable subcentimeter intramammary lymph node in the outer aspect of each breast. Procedure Note Real Edward MD - 08/09/2017 Bilateral mammography is performed in conjunction with computed aideddetection. 3-D tomography along with 2-D C view imaging was alsoperformed. Comparison made to previous dated as far back as 06/19/2010 andas recent as 06/08/2016. No suspicious masses, areas of architectural distortion or suspiciousmicrocalcifications. Stable bilateral vascular calcifications. Stablesubcentimeter intramammary lymph node in the outer aspect of eachbreast. IMPRESSION: No mammographic signs of malignancy. Annual screening is recommended. BI-RADS CATEGORY: 2 - Benign finding. DENSITY: There are scattered fibroglandular densities. POS - CDHMAMA us Jv A Bigda DO IMG MG EXAMS Final Result documented in this encounter Visit Diagnoses Diagnosis Breast screening Breast screening, unspecified Breast screening Breast screening, unspecified documented in this encounter Additional Health [...] documented as of this encounter Care Teams Sheep Shearer Relationship Specialty Start Date End Date Jv Tavera DO [email or web address] PCP - General Internal Medicine 06/14/17 03/25/25 Jv Tavera DO 179 [place] [address] [email or web address] PCP - General Internal Medicine 03/26/25 documented as of this encounter Additional Source Comments The information contained in this document represents components of the legal health record. It is not the complete legal health record.[facility]
--- OUTSIDE RECORDS SUMMARY | 2025-07-15 21:20 | XMS_ITS | Encounter Summary ---
Author Organization [facility] Address [address] [facility] [address] [place] [address] Phone Care Team Providers Care Plush Finisher Name Role Phone Jv Tavera DO Primary Care Provider [phone] TyshawnJv cuello DO Primary Care Provider [phone] Encounter Details Date Type Department Care Team (Late st Contact Info) Description 01/29/2024 Procedure Pass [facility], [facility] [address] [place] [address] Social History Tobacco Use Types Packs/Day Years [...] 8:38 PM EDT Corrina Person RN * [place] Suicide Severity Rating Scale (Screener/Recent Self-Report) Question [...] Appointment [facility] [address] [place] [address] Esther Bryant, OT [address] [place] [address] 07/17/2025 4:00 AM EST Appointment [facility] [address] [place], [place] [phone] O'Malika Cedillo RN [address] [place] [address] 07/18/2025 10:45 AM EST Appointment [facility] [address] [place] [phone] Esther Bryant, OT [address] [place] [address] 07/22/2025 1:00 AM EST Appointment [facility] [address] [place] [address] Esther Bryant, OT [address] [place] [address] 07/23/2025 12:30 AM EST Appointment [facility] [address] [place] [address] O'Malika Cedillo RN [address] [place] [address] 07/23/2025 1:00 AM EST Appointment [facility] [address] [place] [address] Esther Bryant, OT [address] [place] [address] 07/24/2025 1:30 PM EST Office Visit [facility] [address] [place] [address] Karina Pedraza, DATA SCIENCE AND IOT MANAGER [address] [place] [address] 07/31/2025 3:00 AM EST Appointment [facility] [address] [place] [address] O'Malika Cedillo RN [address] [place] [address] 08/07/2025 1:00 AM EST Appointment [facility] [address] [place] [address] O'Nguyen, Malika Xiao RN [address] [place] [address] 08/15/2025 Appointment [facility] [address] [place] [address] O'Nguyen, Malika Xiao RN [address] [place] [address] 08/21/2025 2:00 PM EST Office Visit [facility] [address] [facility] 3rd Floor, [address] [place] [address] Yvan Bates MD [address] [facility], [address] [place] [address] 09/04/2025 1:00 PM EST Office Visit [facility] [address] [place] [address] Ccoo Smith MD [address] [place] [address] Orthopedics & Sports Medicine, [place] [address] 11/01/2025 1:30 PM EDT Telemedicine [facility] [address] [facility], 2nd Floor, [address] [place] [address] Bossman Weems MD [address] [place] [address] [address] [place] [address] [email or web address] 12/10/2025 2:00 PM EDT Office Visit [facility] 15 [place] [address] Sarah Balderas MD [address] [facility], 2nd [place] [address] documented as of this encounter Visit Diagnoses Not on filedocumented in this encounter Additional Health Concerns Infection Onset Date Last Indicated Resolved Time CoV-Risk 04/20/2024 04/20/2024 05/01/2024 1:22 AM EDT CoV-Risk 07/20/2024 07/20/2024 07/23/2024 9:54 AM EST COVID-19 Comment:Symptom onset = 07/20, 10 days, not immunocompromised 07/20/2024 07/23/2024 08/02/2024 1 2:18 PM EST documented as of this encounter Care Teams Plush Finisher Relationship Specialty Start Date End Date Jv Tavera DO PCP - General Internal Medicine 06/14/17 03/25/25 Jv Tavera DO [address] [place] [address] PCP - General Internal Medicine 03/26/25 documented as of this encounter Additional Source Comments The information contained in this document represents components of the legal health record. It is not the complete legal health record.[facility]
--- OUTSIDE RECORDS SUMMARY | 2025-07-15 21:20 | XMS_ITS | Encounter Summary ---
Author Organization [facility] Address [address] [facility] [address] [place] [address] Phone Care Team Providers Care Seed Laboratory Assistant Name Role Phone Jv Tavera DO Primary Care Provider [phone] Jv Tavera DO Primary Care Provider [phone] Encounter Details Date Type Department Care Team (Late st Contact Info) Description 01/30/2024 Transcribe Orders Virtual Department [address] [place] [address] Jv Tavera DO [address] [facility] [place] [address] [place] [address] [email or web address] Social History Tobacco Use Types Packs/Day Years [...] 07/16/2025 10:45 AM EST Appointment [facility] [address] [place] [address] Esther Bryant, OT 168 [place] [address] [email or web address] 07/17/2025 4:00 AM EST Appointment [facility] [address] [place] [address] O'Nguyen, Malika Xiao, RN 168 [place] [address] [email or web address] 07/18/2025 10:45 AM EST Appointment [facility] [address] [place] [address] Esther Bryant, OT 168 [place] [address] [email or web address] 07/22/2025 1:00 AM EST Appointment [facility] [address] [place] [phone] Esther Bryant, OT 168 [place] [address] [email or web address] 07/23/2025 12:30 AM EST Appointment [facility] 30 [place] [address] O'Malika Cedillo RN 168 [place] [address] [email or web address] 07/23/2025 1:00 AM EST Appointment [facility] 30 [place] [address] Esther Bryant, OT 168 [place] [address] [email or web address] 07/24/2025 1:30 PM EST Office Visit [facility] 10 [place] [address] Karina Pedraza, JOSÉ [address] [address] 07/31/2025 3:00 AM EST Appointment [facility] [address] [place] [address] O'Malika Cedillo RN 168 [place] [address] [email or web address] 08/07/2025 1:00 AM EST Appointment [facility] 30 [place], [place] [phone] O'Malika Cedillo RN 168 [place] [address] [email or web address] 08/15/2025 Appointment [facility] 30 [place], [place] [phone] O'Malika Cedillo RN 168 [place] [address] 08/21/2025 2:00 PM EST Office Visit [facility] [address] 3rd Floor, [address] [place] [address] Yvan Bates MD [address] [facility], [address] [place] [address] 09/04/2025 1:00 PM EST Office Visit [facility] [address] [place] [address] Coco Simth MD [address] [place] [address] Orthopedics & Sports Medicine, [facility] [place] [address] 11/01/2025 1:30 PM EDT Telemedicine [facility] [address] [facility], 2nd Floor, [address] [place] [address] Bossman Weems MD [address] [place] [address] [address] [place] [address] [email or web address] 12/10/2025 2:00 PM EDT Office Visit [facility] [address] [place] [address] Sarah Balderas MD [address] [facility], 2nd [place] [address] [email or web address] documented as of this encounter Visit Diagnoses Not on filedocumented in this encounter Additional Health Concerns Infection Onset Date Last Indicated Resolved Time CoV-Risk 04/20/2024 04/20/2024 05/01/2024 1:22 AM EDT CoV-Risk 07/20/2024 07/20/2024 07/23/2024 9:54 AM EST COVID-19 Comment:Symptom onset = 07/20, 10 days, not immunocompromised 07/20/2024 07/23/2024 08/02/2024 1 2:18 PM EST documented as of this encounter Care Teams Seed Laboratory Assistant Relationship Specialty Start Date End Date Jv Tavera DO [email or web address] PCP - General Internal Medicine 06/14/17 03/25/25 Jv Tavera DO [address] [place] [address] PCP - General Internal Medicine 03/26/25 documented as of this encounter Additional Source Comments The information contained in this document represents components of the legal health record. It is not the complete legal health record.[facility]
--- OUTSIDE RECORDS SUMMARY | 2025-07-15 21:20 | XMS_ITS | Encounter Summary ---
Author Organization [facility] Address [address] [facility] [address] [place] [address] Phone Care Team Providers Care Glass Deposition Tender Name Role Phone Jv Tavera DO Primary Care Provider [phone] TyshawnJv cuello DO Primary Care Provider [phone] Encounter Details Date Type Department Care Team (Late st Contact Info) Description 01/30/2024 Procedure Pass Non-Invasive Cardiology 30 [place] [address] Social History Tobacco Use Types Packs/Day Years [...] 07/16/2025 10:45 AM EST Appointment [facility] [address] [place] [address] Esther Bryant, OT 168 [place] [address] 07/17/2025 4:00 AM EST Appointment [facility] [address] [place] [phone] Michelle'Nguyen, Malika Xiao, RN [address] [place] [address] 07/18/2025 10:45 AM EST Appointment [facility] [address] [place] [phone] Esther Bryant, OT [address] [place] [address] 07/22/2025 1:00 AM EST Appointment [facility] [address] [place] [phone] Esther Bryant, OT [address] [place] [address] 07/23/2025 12:30 AM EST Appointment [facility] 30 [place] [address] O'Malika Cedillo RN [address] [place] [address] 07/23/2025 1:00 AM EST Appointment [facility] 30 [place] [address] Esther Bryant, OT [address] [place] [address] 07/24/2025 1:30 PM EST Office Visit [facility] [address] [place] [address] Karina Pedraza, CAUSTIC PUMP OPERATOR [address] [place] [address] 07/31/2025 3:00 AM EST Appointment [facility] 30 [place] [address] O'Malika Cedillo RN [address] [place] [address] 08/07/2025 1:00 AM EST Appointment [facility] 30 [place] [address] O'Malika Cedillo RN [address] [place] [address] 08/15/2025 Appointment [facility] [address] [place] [address] O'Malika Cedillo RN [address] [place] [address] 08/21/2025 2:00 PM EST Office Visit [facility] [address] [facility] 3rd Floor, [address] [place] [address] Yvan Bates MD [address] [facility], [address] [place] [address] [email or web address] 09/04/2025 1:00 PM EST Office Visit [facility] Sports Medicine [address] [place] [address] Coco Smith MD 4 [facility] Orthopedics & Sports Medicine, [facility] [place] [address] [email or web address] 11/01/2025 1:30 PM EDT Telemedicine [facility] [address] [facility], 2nd Floor, [address] [place] [address] Bossman Weems MD [address] [place] [address] [place] [address] [email or web address] 12/10/2025 2:00 PM EDT Office Visit [facility] General [facility] Care 15 [place] [address] Sarah Balderas MD [address] [facility], 2nd [place] [address] [email or web address] documented as of this encounter Visit Diagnoses Not on filedocumented in this encounter Additional Health Concerns Infection Onset Date Last Indicated Resolved Time CoV-Risk 04/20/2024 04/20/2024 05/01/2024 1:22 AM EDT CoV-Risk 07/20/2024 07/20/2024 07/23/2024 9:54 AM EST COVID-19 Comment:Symptom onset = 07/20, 10 days, not immunocompromised 07/20/2024 07/23/2024 08/02/2024 1 2:18 PM EST documented as of this encounter Care Teams Glass Deposition Tender Relationship Specialty Start Date End Date Jv Tavera DO PCP - General Internal Medicine 06/14/17 03/25/25 Jv Tavera DO [address] [place] [address] PCP - General Internal Medicine 03/26/25 documented as of this encounter Additional Source Comments The information contained in this document represents components of the legal health record. It is not the complete legal health record.[facility]
--- OUTSIDE RECORDS SUMMARY | 2025-07-15 21:20 | XMS_ITS | Encounter Summary ---
Author Organization [facility] Address [address] [facility] [address] [place] [address] Phone Care Team Providers Care Land Title Examiner Name Role Phone Jv Tavera DO Primary Care Provider [phone] Jv Tavera DO Primary Care Provider [phone] Encounter Details Date Type Department Care Team (Late st Contact Info) Description 06/29/2017 Ancillary Orders [facility] External Provider Virtual Department 30 [place] [address] Jv Tavera DO [address] [facility] [place] [address] [place] [address] Estrogen deficiency Social History Tobacco Use Types Packs/Day Years [...] Description 07/16/2025 10:45 AM EST Appointment [facility] 30 [place] [address] Esther Bryant, OT [address] [place] [address] 07/17/2025 4:00 AM EST Appointment [facility] [address] [place] [address] O'Malika Cedillo, PEARL [address] [place] [address] [email or web address] 07/18/2025 10:45 AM EST Appointment [facility] [address] [place] [phone] Esther Bryant, OT [address] [place] [address] 07/22/2025 1:00 AM EST Appointment [facility] [address] [place] [phone] Esther Bryant, OT [address] [place] [address] [email or web address] 07/23/2025 12:30 AM EST Appointment [facility] [address] [place] [phone] O'Nguyen, Malika Xiao, PEARL [address] [place] [address] [email or web address] 07/23/2025 1:00 AM EST Appointment [facility] [address] [place] [phone] Esther Bryant, OT [address] [place] [address] [email or web address] 07/24/2025 1:30 PM EST Office Visit [facility] [address] [place] [address] Karina Pedraza, COMMERCIAL CONSTRUCTION ESTIMATOR [address] [address] 07/31/2025 3:00 AM EST Appointment [facility] [address] [place] [address] O'Malika Cedillo, RN [address] [place] [address] 08/07/2025 1:00 AM EST Appointment [facility] 30 [place] [address] O'Nguyen, Malika Xiao RN [address] [place] [address] 08/15/2025 Appointment [facility] [address] [place] [address] O'Nguyen, Malika Xiao RN [address] [place] [address] 08/21/2025 2:00 PM EST Office Visit [facility] [address] [facility] 3rd Floor, [address] [place] [address] Yvan Bates MD 22 [facility], [address] [place] [address] [email or web address] 09/04/2025 1:00 PM EST Office Visit [facility] Orthopedics & Sports Medicine [address] [place] [address] Coco Smith MD [address] [place] [address] Orthopedics & Sports Medicine, [facility] [place] [address] 11/01/2025 1:30 PM EDT Telemedicine [facility] [address] [facility], 2nd Floor, [address] [place] [address] Bossman Weems MD [address] [place] [address] [address] [place] [address] [email or web address] 12/10/2025 2:00 PM EDT Office Visit [facility] General Surgical Care 15 [place] [address] Sarah Balderas MD 15 [facility], 2nd [place] [address] [email or web address] documented as of this encounter Visit Diagnoses Diagnosis Estrogen deficiency Other ovarian failure documented in this encounter Additional Health Concerns [...] documented as of this encounter Care Teams Land Title Examiner Relationship Specialty Start Date End Date Jv Tavera DO PCP - General Internal Medicine 06/14/17 03/25/25 Jv Tavera DO [address] [place] [address] PCP - General Internal Medicine 03/26/25 documented as of this encounter Additional Source Comments The information contained in this document represents components of the legal health record. It is not the complete legal health record.[facility]
--- OUTSIDE RECORDS SUMMARY | 2025-07-15 21:20 | XMS_ITS | Encounter Summary ---
Author Organization [facility] Address [address] [facility] [address] [place] [address] Phone Care Team Providers Care Software Engineer Web Services Name Role Phone Jv Tavera DO Primary Care Provider [phone] Jv Tavera DO Primary Care Provider [phone] Encounter Details Date Type Department Care Team (Late Contact Info) Description 12/28/2023 Procedure Pass [facility] 30 [place] [address] Social History Tobacco Use Types Packs/Day Years [...] 07/16/2025 10:45 AM EST Appointment [facility] 30 [place] [address] Esther Bryant, OT 168 [place] [address] 07/17/2025 4:00 AM EST Appointment [facility] [address] [place] [phone] O'Malika Cedillo RN 168 [place] [address] 07/18/2025 10:45 AM EST Appointment [facility] [address] [place] [phone] Esther Bryant, OT [address] [place] [address] 07/22/2025 1:00 AM EST Appointment [facility] [address] [place] [phone] Esther Bryant, OT [address] [place] [address] 07/23/2025 12:30 AM EST Appointment [facility] [address] [place] [phone] Malika Mcintosh, PEARL [address] [place] [address] 07/23/2025 1:00 AM EST Appointment [facility] [address] [place] [phone] Esther Bryant, OT [address] [place] [address] 07/24/2025 1:30 PM EST Office Visit [facility] 10 [place] [address] Karina Pedraza, PAPER SORTER [address] [address] 07/31/2025 3:00 AM EST Appointment [facility] 30 [place] [phone] O'Nguyen, Malika Xiao RN 168 [place] [address] 08/07/2025 1:00 AM EST Appointment [facility] 30 [place] [phone] O'Nguyen, Malika Xiao RN 168 [place] [address] 08/15/2025 Appointment [facility] 30 [place] [address] O'Nguyen, Malika Xiao RN 168 [place] [address] 08/21/2025 2:00 PM EST Office Visit [facility] [address] [place] [address] 3rd Floor, [address] [place] [address] Yvan Bates MD [address] [place] [address] 09/04/2025 1:00 PM EST Office Visit [facility] [address] [place] [address] Coco Smith MD [address] [place] [address] Orthopedics & Sports Medicine, [facility] [place] [address] 11/01/2025 1:30 PM EDT Telemedicine [facility] [address] [place] [address], 2nd Floor, [address] [place] [address] Bossman Weems MD [address] [place] [address] [email or web address] 12/10/2025 2:00 PM EDT Office Visit [facility] General Surgical Care 15 [place] [address] Sarah Balderas MD [address] [facility], 2nd [place] [address] [email or web address] documented as of this encounter Visit Diagnoses Not on filedocumented in this encounter Additional Health Concerns Infection Onset Date Last Indicated Resolved Time CoV-Risk 04/20/2024 04/20/2024 05/01/2024 1:22 AM EDT CoV-Risk 07/20/2024 07/20/2024 07/23/2024 9:54 AM EST COVID-19 Comment:Symptom onset = 07/20, 10 days, not immunocompromised 07/20/2024 07/23/2024 08/02/2024 1 2:18 PM EST documented as of this encounter Care Teams Software Engineer Web Services Relationship Specialty Start Date End Date Jv Tavera DO PCP - General Internal Medicine 06/14/17 03/25/25 Jv Tavera DO [address] [place] [address] PCP - General Internal Medicine 03/26/25 documented as of this encounter Additional Source Comments The information contained in this document represents components of the legal health record. It is not the complete legal health record[facility]
--- OUTSIDE RECORDS SUMMARY | 2025-07-15 21:20 | XMS_ITS | Encounter Summary ---
Author Organization [facility] Address [address] [place] [address] Phone Care Team Providers Care Machine Design Engineer Name Role Phone Jv Tavera DO Primary Care Provider [phone] Jv Tavera DO Primary Care Provider [phone] Encounter Details Date Type Department Care Team (Late st Contact Info) Description 01/29/2024 Procedure Pass [facility], Ct Scan - [address] [address] Social History Tobacco Use Types Packs/Day Years [...] 8:38 PM EDT Corrina Person RN * Corinna Suicide Severity Rating Scale (Screener/Recent Self-Report) Question [...] EST Appointment [facility] [address] [place] [phone] Esther Bryant, OT [address] [place] [address] 07/17/2025 4:00 AM EST Appointment [facility] [address] [place] [phone] Michelle'Malika Cedillo RN [address] [place] [address] 07/18/2025 10:45 AM EST Appointment [facility] [address] [place] [phone] Esther Bryant, OT [address] [place] [address] 07/22/2025 1:00 AM EST Appointment [facility] [address] [place] [phone] Esther Bryant, OT [address] [place] [address] 07/23/2025 12:30 AM EST Appointment [facility] [address] [place] [address] O'Malika Cedillo RN [address] [place] [address] 07/23/2025 1:00 AM EST Appointment [facility] [address] [place] [address] Esther Bryant, OT [address] [place] [address] 07/24/2025 1:30 PM EST Office Visit [facility] [address] [place] [address] Karina Pedraza, PAY AGENT [address] [place] [address] 07/31/2025 3:00 AM EST Appointment [facility] [address] [place] [address] O'Malika Cedillo RN [address] [place] [address] 08/07/2025 1:00 AM EST Appointment [facility] [address] [place] [address] O'Nguyen, Malika Xiao RN [address] [place] [address] 08/15/2025 Appointment [facility] [address] [place] [address] O'Nguyen, Malika Xiao RN [address] [place] [address] 08/21/2025 2:00 PM EST Office Visit [facility] [address] [facility] [address]rd Floor, [address] [place] [address] Yvan Bates MD [address] [facility], [address] [place] [address] 09/04/2025 1:00 PM EST Office Visit [facility] [address] [place] [address] Coco Smith MD [address] [place] [address] Orthopedics & Sports Medicine, [facility] [place] [address] 11/01/2025 1:30 PM EDT Telemedicine [facility] [address] [facility], 2nd Floor, [address] [place] [address] Bossman Weems MD [address] [place] [address] [address] [place] [address] [email or web address] 12/10/2025 2:00 PM EDT Office Visit [facility] [address] [place] [address] Sarah Balderas MD [address] [facility], 2nd [place] [address] documented as of this encounter Visit Diagnoses Not on filedocumented in this encounter Additional Health Concerns Infection Onset Date Last Indicated Resolved Time CoV-Risk 04/20/2024 04/20/2024 05/01/2024 1:22 AM EDT CoV-Risk 07/20/2024 07/20/2024 07/23/2024 9:54 AM EST COVID-19 Comment:Symptom onset = 07/20, 10 days, not immunocompromised 07/20/2024 07/23/2024 08/02/2024 1 2:18 PM EST documented as of this encounter Care Teams Machine Design Engineer Relationship Specialty Start Date End Date Jv Tavera DO PCP - General Internal Medicine 06/14/17 03/25/25 Jv Tavera DO [address] [place] [phone] PCP - General Internal Medicine 03/26/25 documented as of this encounter Additional Source Comments The information contained in this document represents components of the legal health record. It is not the complete legal health record.[facility]
--- OUTSIDE RECORDS SUMMARY | 2025-07-15 21:20 | XMS_ITS | Encounter Summary ---
Author Organization [facility] Address [address] [facility] [address] [place] [address] Phone Care Team Providers Care Fish Hatchery Inspector Name Role Phone Jv Tavera Primary Care Provider [phone] Encounter Details Date Type Department Care Team (Late st Contact Info) Description 04/11/2025 Procedure Pass [facility], [address] [address] Social History Tobacco Use Types Packs/Day Years [...] [facility] [address] [place], [place] [phone] Esther Bryant, OT [address] [place] [address] 07/17/2025 4:00 AM EST Appointment [facility] [address] [place], [place] [phone] O'Nguyen, Malika Xiao RN [address] [place] [address] 07/18/2025 10:45 AM EST Appointment [facility] [address] [place] [address] Esther Bryant, OT [address] [place] [address] 07/22/2025 1:00 AM EST Appointment [facility] [address] [place] [phone] Esther Bryant, OT [address] [place] [address] 07/23/2025 12:30 AM EST Appointment [facility] [address] [place] [phone] O'Nguyen, Malika Xiao RN [address] [place] [address] 07/23/2025 1:00 AM EST Appointment [facility] [address] [place] [phone] Esther Bryant, OT [address] [place] [address] 07/24/2025 1:30 PM EST Office Visit [facility] [address] [place] [address] Karina Pedraza, JOSÉ [address] [place] [address] 07/31/2025 3:00 AM EST Appointment [facility] [address] [place] [phone] O'Nguyen, Malika Xiao RN [address] [place] [address] 08/07/2025 1:00 AM EST Appointment [facility] [address] [place] [phone] O'Nguyen, Malika Xiao RN [address] [place] [address] 08/15/2025 Appointment [facility] [address] [place] [address] O'Nguyen, Malika Xiao RN [address] [place] [address] 08/21/2025 2:00 PM EST Office Visit [facility] [address] [facility] 3rd Floor, [address] [place] [address] Yvan Bates MD [address] [facility] [address] [place] [address] [email or web address] 09/04/2025 1:00 PM EST Office Visit [facility] [address] [place] [address] Coco Smith MD [address] [place] [address] Orthopedics & Sports Medicine, [facility] [place] [address] 11/01/2025 1:30 PM EDT Telemedicine [facility] [address] [facility], 2nd Floor, [address] [place] [address] Bossman Weems MD [address] [place] [address] [address] [place] [address] [email or web address] 12/10/2025 2:00 PM EDT Office Visit [facility] [address] [place] [address] Sarah Balderas MD [address] [facility], 2nd [place] [address] [email or web address] documented as of this encounter Visit Diagnoses Not on filedocumented in this encounter Care Teams Fish Hatchery Inspector Relationship Specialty Start Date End Date Jv Tavera DO [address] [place] [address] [email or web address] PCP - General Internal Medicine 03/26/25 documented as of this encounter Additional Source Comments The information contained in this document represents components of the legal health record. It is not the complete legal health record.[facility]
--- OUTSIDE RECORDS SUMMARY | 2025-07-15 21:20 | XMS_ITS | Clinical Summary ---
Author Organization [facility] Address [address] [place] [address] Phone Care Team Providers Care Wrapper Sorter Name Role Phone Jv Tavera Primary Care Provider [phone] Allergies No known active allergies Medications pantoprazole (PROTONIX) 40 MG tablet Take 40 mg by mouth daily. 10/20/19 25 Active therapeutic multivitamin tablet Take 1 tablet by mouth daily. 04/15/20 24 Active methylcellulose (CITRUCEL) oral powder Take 2 g by mouth daily. Takes PRN 04/15/20 24 Active apixaban (ELIQUIS) 5 mg tablet Take 1 tablet (5 mg total) by mouth 2 (two) times a day. 60 tablet 1 04/15/20 24 Active L.acid,columba-B.a nim,bifid,infan (FORTIFY OPTIMA WOMEN PROBIOTIC) 50 billion cell CpDR Take 1 Capful by mouth daily. 09/20/19 25 Active senna (SENOKOT) 8.6 mg tablet Take 2 tablets by mouth daily. 03/28/20 25 Active apixaban (ELIQUIS) 5 mg tablet Take 5 mg by mouth 2 (two) times a day. 04/15/20 24 Active fluocinolone acetonide (DERMOTIC) 0.01 % Drop 5 drops by Each Ear route 2 (two) times a day as needed. 07/10/20 24 2024 Discontinued clobetasol (TEMOVATE) 0.05 % external solution Apply topically 2 (two) times a day. 07/10/20 24 2024 Discontinued ipratropium (ATROVENT) 42 mcg (0.06 %) nasal spray 2 sprays by Nasal route nightly at bedtime. 15 mL 3 05/24/20 25 2024 Discontinued(N o longer taking) umeclidinium-vi lanteroL (ANORO ELLIPTA) 62.5-25 mcg/actuation diskus inhaler Inhale 1 puff into the lungs daily. 30 each 6 05/31/202024 Discontinued(N o longer taking) nitrofurantoin (MACROBID) 100 MG capsule Take 100 mg by mouth 2 (two) times a day. 06/15/202024 Discontinued(S top Taking at Discharge) levoFLOXacin (LEVAQUIN) 250 MG tablet [The details of the medication are not available because there are pending changes by a home health clinician.] 5 tablet 06/20/202024 Additional Information Patient not taking.Reported on 07/05/2025 Hospital, Clinic, or Other Facility Administered Medication Ordered Dose Route Frequency Start Date End Date Status triamcinolone acetonide (KENALOG-40) 40 mg/mL injection 80 mgIndications:Primar y osteoarthritis of left knee 80 mg IM Once 06/03/2025 5 Discontinued BUPivacaine (PF) (MARCAINE) 0.25% injection 2 mLIndications:Primar y osteoarthritis of left knee 2 mL See Adm Inst Once 06/03/2025 5 Discontinued lidocaine (XYLOCAINE) 1% injection 2 mLIndications:Primar y osteoarthritis of left knee 2 mL Infil Once 06/03/2025 5 Discontinued Active Problems Problem Noted Date Diagnosed Date Delirium 06/18/2025 Assessment & Plan (06/19/2025 2:39 PM EST): Patient noted to have fluctuating mentation with an episode of altered state in the ED resulting in screaming out and becoming incoherent. There was also questionable left facial droop but without other focal deficits. CT of the head was negative. ED spoke with neurology, differential is broad for her delirium. This included her recent UTI, A-fib with RVR, stroke versus seizures. Repeat UA grossly positive - Patient will monitor on telemetry closely -Obtaining MRI/MRI brain with and without contrast and EEG. -Repeating CBC, urine toxicology -Monitor for fever curve - Consider as needed doses of Seroquel 12.5 mg for agitation -Neurochecks every 4 hours -PT/OT consultation. Speech consultation if failed bedside swallow eval. Can take PO if mental status supports Will need IM ceftriaxone if she can't keep an IV Assessment & Plan (06/18/2025 1:28 PM EST): Patient noted to have fluctuating mentation with an episode of altered state in the ED resulting in screaming out and becoming incoherent. There was also questionable left facial droop but without other focal deficits. CT of the head was negative. ED spoke with neurology, differential is broad for her delirium. This included her recent UTI, A-fib with RVR, stroke versus seizures. Additionally, patient had another episode of agitation requiring a dose of IM Zyprexa. Patient now resting comfortably. - Patient will monitor on telemetry closely -Obtaining MRI/MRI brain with and without contrast and EEG. -Repeating CBC, urine toxicology -Monitor for fever curve - Consider as needed doses of Seroquel 12.5 mg for agitation -Neurochecks every 4 hours -PT/OT consultation. Speech consultation if failed bedside swallow eval. -N.p.o. except medications Assessment & Plan (06/18/2025 3:04 AM EST): Patient noted to have fluctuating mentation with an episode of altered state in the ED resulting in screaming out and becoming incoherent. There was also questionable left facial droop but without other focal deficits. CT of the head was negative. ED spoke with neurology, differential is broad for her delirium. This included her recent UTI, A-fib with RVR, stroke versus seizures. Additionally, patient had another episode of agitation requiring a dose of IM Zyprexa. Patient now resting comfortably. - Patient will monitor on telemetry closely -Obtaining MRI/MRI brain with and without contrast and EEG. -Repeating CBC, urine toxicology -Monitor for fever curve - Consider as needed doses of Seroquel 12.5 mg for agitation -Neurochecks every 4 hours -PT/OT consultation. Speech consultation if failed bedside swallow eval. -N.p.o. except medications Elevated troponin 06/18/2025 Assessment & Plan (06/19/2025 2:39 PM EST): Suspect initial chest pain secondary to rapid A-fib with heart rates in the 150s. Troponin did trend upward from 24-38, and 91. EKG with evidence of anterolateral ST depression during rapid A-fib which resolved after converted back to sinus rhythm. No further chest pain. Suspect this is demand ischemia. Lower likelihood of ACS. - Continue to monitor clinically - repeat trop in am - cards consult Assessment & Plan (06/18/2025 1:28 PM EST): Suspect initial chest pain secondary to rapid A-fib with heart rates in the 150s. Troponin did trend upward from 24-38, and 91. EKG with evidence of anterolateral ST depression during rapid A-fib which resolved after converted back to sinus rhythm. No further chest pain. Suspect this is demand ischemia. Lower likelihood of ACS. - Continue to monitor clinically - repeat trop in am - cards consult Assessment & Plan (06/18/2025 3:05 AM EST): Suspect initial chest pain secondary to rapid A-fib with heart rates in the 150s. Troponin did trend upward from 24-38, and 91. EKG with evidence of anterolateral ST depression during rapid A-fib which resolved after converted back to sinus rhythm. No further chest pain. Suspect this is demand ischemia. Lower likelihood of ACS. - Continue to monitor clinically - repeat trop in am - cards consult Nausea 06/18/2025 Assessment & Plan (06/19/2025 2:39 PM EST): Patient was noted to be nauseous possibly due to reflux given evidence of hiatal hernia with patulous fluid in the distal esophagus. - Will give a dose of IV Protonix and continue oral dose tomorrow -IV Zofran as needed Assessment & Plan (06/18/2025 1:28 PM EST): Patient was noted to be nauseous possibly due to reflux given evidence of hiatal hernia with patulous fluid in the distal esophagus. - Will give a dose of IV Protonix and continue oral dose tomorrow -IV Zofran as needed Assessment & Plan (06/18/2025 3:04 AM EST): Patient was noted to be nauseous possibly due to reflux given evidence of hiatal hernia with patulous fluid in the distal esophagus. - Will give a dose of IV Protonix and continue oral dose tomorrow -IV Zofran as needed Atrial fibrillation with rapid ventricular respo nse 06/17/2025 Assessment & Plan (06/19/2025 2:39 PM EST): Patient present with sudden onset of shortness of breath and palpitation found to be in A-fib with RVR with heart rates in the 140s and 150s. Patient received 2 doses of IV diltiazem via EMS and additional IV metoprolol in the ED. Unfortunately patient's blood pressure was tenuous and had brief moments of hypotension with systolics in 80s. Ultimately received 1 dose of IV digoxin and converted back to normal sinus rhythm with heart rates in the 60s. Initial EKG did show ST depressions over the anterolateral leads which resolved after repeated EKG. No further chest pain or shortness of breath. - Patient will be monitor on telemetry - Continuing Eliquis 5 mg twice daily -May consider additional IV diltiazem boluses versus drip if converted back to A-fib. -Holding off repeating echocardiogram as recent echo in April showing preserved EF of 65%, normal diastolic function with mild AR. -Cardiology consultation Assessment & Plan (06/18/2025 1:28 PM EST): Patient present with sudden onset of shortness of breath and palpitation found to be in A-fib with RVR with heart rates in the 140s and 150s. Patient received 2 doses of IV diltiazem via EMS and additional IV metoprolol in the ED. Unfortunately patient's blood pressure was tenuous and had brief moments of hypotension with systolics in 80s. Ultimately received 1 dose of IV digoxin and converted back to normal sinus rhythm with heart rates in the 60s. Initial EKG did show ST depressions over the anterolateral leads which resolved after repeated EKG. No further chest pain or shortness of breath. - Patient will be monitor on telemetry - Continuing Eliquis 5 mg twice daily -May consider additional IV diltiazem boluses versus drip if converted back to A-fib. -Holding off repeating echocardiogram as recent echo in April showing preserved EF of 65%, normal diastolic function with mild AR. -Cardiology consultation Assessment & Plan (06/18/2025 3:04 AM EST): Patient present with sudden onset of shortness of breath and palpitation found to be in A-fib with RVR with heart rates in the 140s and 150s. Patient received 2 doses of IV diltiazem via EMS and additional IV metoprolol in the ED. Unfortunately patient's blood pressure was tenuous and had brief moments of hypotension with systolics in 80s. Ultimately received 1 dose of IV digoxin and converted back to normal sinus rhythm with heart rates in the 60s. Initial EKG did show ST depressions over the anterolateral leads which resolved after repeated EKG. No further chest pain or shortness of breath. - Patient will be monitor on telemetry - Continuing Eliquis 5 mg twice daily -May consider additional IV diltiazem boluses versus drip if converted back to A-fib. -Holding off repeating echocardiogram as recent echo in April showing preserved EF of 65%, normal diastolic function with mild AR. 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 Follow-up chemistries within the next week with PCP. -Aggressively replete potassium will secondarily also improve hyponatremia supplement potassium to maintain K above 4. Assessment & Plan (07/24/2024 10:10 AM EST): Low sodium of 123 on 07/23, improved. Baseline in the low 130s. Probably due to a combination of ADH surge from COVID-19/diarrhea and some hypoperfusion Urine studies now show urine sodium less than 20. She reported drinking 5 x 16 ounces of her daily prior to admission --Continue fluid restriction 1.5 L and monitor Assessment & Plan (07/24/2024 9:37 AM EST): Volume status appears close to euvolemic I would simply keep on fluid restriction 1500 mL daily max. -Continue to monitor sodium levels -Aggressively replete potassium will secondarily also improve hyponatremia supplement potassium to maintain K above 4. Assessment & Plan (07/23/2024 3:15 AM EST): Unclear etiology. She states that she drinks 5 x 16 ounce bottles of water daily. She has not drank any more or any less recently. Sodium was low on Tuesday. She is endorsing a dry cough. She had nausea and diarrhea Tuesday evening. She was given 1 L of fluids in the emergency department. I will check urine studies to see if she is concentrating her urine, but at this point it is unclear whether this is a hypovolemic or euvolemic hyponatremia. Baseline sodium is normal back in June. Urine specific gravity is low indicating that her kidneys are trying to make dilute urine and correct her sodium. Atrial fibrillation 07/23/2024 Assessment & Plan (05/16/2025 2:51 PM EDT): She has known atrial fibrillation is rate controlled here in office today she is on apixaban 5 mg twice daily which she will continue without change. Assessment & Plan (07/24/2024 10:10 AM EST): Continue Eliquis. Assessment & Plan (07/23/2024 3:15 AM EST): Continue Eliquis. Pharyngoesophageal dysphagia 12/24/2020 Irritable bowel syndrome wit h both constipation and diarrhea 12/24/2020 Hiatal hernia with GERD 10/06/2019 Overview (10/06/2019): Worsening reflux symptoms. Recent EGD demonstrates hiatal hernia. 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 Seen by GI and testing all OK Assessment & Plan (07/24/2024 10:10 AM EST): Continue famotidine and pantoprazole. Assessment & Plan (07/23/2024 3:15 AM EST): Continue famotidine and pantoprazole. 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 Continued on twice daily PPI and daily famotidine. 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 Better on PPI and H2 vita. Assessment & Plan (10/06/2019 9:42 AM EST): Discussed raising head of bed. Would suggest change to PPI. She is discussing with her GI doc. 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 Allergic rhinitis 02/06/2018 Celiac disease 02/03/2018 Family history of coronary arteriosclerosis 12/2017 Osteopenia 02/03/2018 Increased thirst 11/16/2017 Assessment & Plan (11/16/2017 4:32 PM EDT): Reports that she is always thirsty. Recent glucose 102 upon lab draw. Unclear if she has discussed this with PCP office. She is instructed to continue to follow up with PCP regarding this. Note to be forwarded to PCP for review. Malaise and fatigue 09/16/2017 Dyspnea on exertion 09/16/2017 Overview (08/01/2024): Patient with no prior history of lung disease and previously fairly healthy, active and well. History of Celiac disease. 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 About 3 years ago (2016) she noted progressive dyspnea on exertion. Mild at first but more recently gets dyspnea with stairs and short walks. Initially diagnosed with asthma but inhalers have never helped. She was diagnosed with pneumonia in 2018 and improved with antibiotics. Further evaluation with a chest CT (some mild pleural parenchymal scarring in the apicis), PFTs (normal spirometry), cardiac stress test and echo (2017) have been unrevealing for a clear cause. She has been managed with Trelegy but notes no improvement. Symptoms do not occur at rest and only with exertion. On several occasions when standing she notes weakness and leg fatigue. Her PMHx is notable for Celiac Sprue (controlled with diet), severe GERD, and sleep apnea on CPAP. She lives in [facility]. She has 3 kids, 3 grand kids all well. She is retired and a . She had one dog until last year. Her house is clean with forced hot air heat. Assessment & Plan (05/16/2025 2:52 PM EDT): She continues to have dyspnea on exertion. She was taking Lasix but has stopped this as is not helping with her swelling or her shortness of breath. She is encouraged follow low-sodium diet. Her cardiac workup was extensive and inconclusive. She does have some concern with her bilateral lower extremity edema which does improve at night. We are going to prescribe her some compression stockings to see if this helps. She should also elevate her legs but this is difficult for her due to her knee pain. She also has not been sleeping well due to having discomfort. She does wonder about taking ibuprofen on occasion. I told her that this would be fine but to take it on a regular basis would increase her bleeding risk and she should not do this. She should talk to the doctor who is managing her arthritis. I did recommend sleep 3 for her to see if she can get a little bit more sleep. She is scheduled to have a venous duplex study in July and a follow-up with Dr. Bates in August. Assessment & Plan (03/22/2025 1:54 PM EDT): First seen in 2019: Exam and history c/w CREST syndrome. Labs note+RANDEE but cytoplasmic pattern (anti-actin) and +RF. Chest CT from March with pleuro-parenchymal scarring at the apices and PFTS with reduced DLCO. Echo with elevated RVSP. CPET Level III performed in 2019 - MIldly reduced exercise capacity with multiple physiologic abnormalities which contribute. There is impaired chronotropic response and abnormal increase in PCWP with increase in CO - a pattern which can be seen in HFpEF. Low Hgb contributes to exercise limitation, as does impaired peripheral extraction. Of note there is V/Q mismatch but no PAH at rest or with exercise. Last seen in Aug 2024: At that time she reported dyspnea on exertion with even short walks. No cough or symptoms at rest. Recent hospitalization for hyponatremia and COVID-19. She continues to have rather profound dyspnea with minimal activities. It can be worse when she has GI symptoms (constipation). Otherwise she denies cough or CP. Recently she has had pedal edema that was not improved with low dose Lasix (10 mg). This continues and is 3-4+. She is seeing a new GI doc but has not done pulmonary rehab due to transportation issues. ROS continues to be positive for Raynaud's, arthritis of hands. She is not using Incruse because it did not help. Afib now on Eliquis. PFTs in December 2023 with normal spirometry and lung volumes, reduced DLCO (mild at 70%) that is similar to previous testing back to 2018. Chest CT 06/08/24: Lungs: The central airways are clear. Appearance of subpleural reticulation and groundglass involving the dependent lower lobes and lingula, more prominent than prior, likely representing a combination of dependent atelectasis and interstitial abnormality. No obvious traction bronchiolectasis or honeycombing. There is a similar mildly thick walled cystic area in the peribronchial left lower lobe measuring 6 mm (9; 273) without mural nodularity. There is similar mild mosaic attenuation of the parenchyma in the lower lobes, which can be seen in small airway disease. Stable peripheral opacities in the bilateral apices, likely scarring. There is no significant air trapping on expiratory view images. There are new more central areas of groundglass and ill-defined peribronchial nodules, notably in the right lower lobe, likely inflammatory/infectious or secondary to aspiration. Echo 04/21/24: Ventricle The left ventricle is normal in size. There is discrete upper septal hypertrophy. The interventricular septal thickness is 11 mm. The LV posterior wall thickness is 9 mm. There is normal left ventricular systolic function. The LV ejection fraction is 60% (calculated via biplane measurement). There are no wall motion abnormalities. LV diastolic function appears within normal limits for age. The E/A ratio is 0.6. The e' septal wave velocity is 5.2 cm/s. The e' lateral wave velocity is 7.1 cm/s. The average E/e' ratio is 10.1. Right Ventricle The right ventricle appears at the upper limits of normal size. The RV basal dimension is 44 mm. There is normal right ventricular systolic function. TAPSE is 19 mm. RV S' wave is 17.4 cm/s. Imp: Possible mild ILD but imaging and PFTs stable over years. Some features of CREST but recent RANDEE lower. CPET with cardiac limit and no pulmonary hypertension. Could have small airway disease with air trapping. CT scan suggests pleural- parenchymal fibroelastosis, ILD, but symptoms are out of proportion to amount of disease. GERD/reflux could be an important contributor. ? Some occult systemic process like amyloid. Suspect this is multifactorial with some lung contribution along with cardiac issues and deconditioning. Inhalers have not helped in the past. Recent pedal edema is concerning. Plan - revisit pulm rehab, she will talk to them about transportation options - trial 3 days of higher dose Lasix (20 mg) - check Echo and chest CT - PFTS in June - GI is seeing her for dysmotility Assessment & Plan (08/03/2024 4:33 PM EST): Not seen since 2021. At that time:Exam and history c/w CREST syndrome. Labs note+RANDEE but cytoplasmic pattern (anti-actin) and +RF. Chest CT from March with pleuro-parenchymal scarring at the apices and PFTS with reduced DLCO. Echo with elevated RVSP. CPET Level III performed - MIldly reduced exercise capacity with multiple physiologic abnormalities which contribute. There is impaired chronotropic response and abnormal increase in PCWP with increase in CO - a pattern which can be seen in HFpEF. Low Hgb contributes to exercise limitation, as does impaired peripheral extraction. Of note there is V/Q mismatch but no PAH at rest or with exercise. She continues to report dyspnea on exertion with even short walks. No cough or symptoms at rest. Recent hospitalization for hyponatremia and COVID-19. Feeling better. Overall she is most concerned for her continued dyspnea on exertion. ROS continues to be positive for Raynaud's, arthritis of hands. She is not using Incruse because it did not help. Waiting for an appointment with GI Her sleep eval disclosed she does not need CPAP. Afib now on Eliquis. PFTs in December 2023 with normal spirometry and lung volumes, reduced DLCO (mild at 70%) that is similar to previous testing back to 2018. Chest CT 06/08/24: Lungs: The central airways are clear. Appearance of subpleural reticulation and groundglass involving the dependent lower lobes and lingula, more prominent than prior, likely representing a combination of dependent atelectasis and interstitial abnormality. No obvious traction bronchiolectasis or honeycombing. There is a similar mildly thick walled cystic area in the peribronchial left lower lobe measuring 6 mm (9; 273) without mural nodularity. There is similar mild mosaic attenuation of the parenchyma in the lower lobes, which can be seen in small airway disease. Stable peripheral opacities in the bilateral apices, likely scarring. There is no significant air trapping on expiratory view images. There are new more central areas of groundglass and ill-defined peribronchial nodules, notably in the right lower lobe, likely inflammatory/infectious or secondary to aspiration. Echo 04/21/24: Ventricle The left ventricle is normal in size. There is discrete upper septal hypertrophy. The interventricular septal thickness is 11 mm. The LV posterior wall thickness is 9 mm. There is normal left ventricular systolic function. The LV ejection fraction is 60% (calculated via biplane measurement). There are no wall motion abnormalities. LV diastolic function appears within normal limits for age. The E/A ratio is 0.6. The e' septal wave velocity is 5.2 cm/s. The e' lateral wave velocity is 7.1 cm/s. The average E/e' ratio is 10.1. Right Ventricle The right ventricle appears at the upper limits of normal size. The RV basal dimension is 44 mm. There is normal right ventricular systolic function. TAPSE is 19 mm. RV S' wave is 17.4 cm/s. Imp: Possible mild ILD but imaging an PFTs stable over years. Some features of CREST but recent RANDEE lower. CPET with cardiac limit and no pulmonary hypertension. Could have small airway disease with air trapping. CT scan suggests pleural- parenchymal fibroelastosis, ILD, but symptoms are out of proportion to amount of disease. GERD/reflux could be an important contributor. ? Some occult systemic process like amyloid. Suspect multifactorial process. Plan - pulm rehab - inhalers have not helped in the past - GI eval for dysmotility - follow up with PFTs in 6 months Assessment & Plan (07/24/2024 10:10 AM EST): Chronic issue for the past 8 years. Has had normal PFTs, normal stress test, has a had a right heart catheterization with pulmonary pressures of 23 mmHg, and echocardiograms without significant valvulopathy or cardiomyopathy. Has tried inhalers without help. Has started on Jardiance recently, but has not noticed that this has helped. COVID-positive on 07/23. She has had a mild cough, no other significant pulmonary symptoms. --Continue remdesivir day #2/3. -- Was recently started on Jardiance but patient feels this has not helped. --Will need follow-up with her outpatient pulmonary team on discharge --d/c dexamethasone and her mild COVID symptoms and may be contributing to anxiety Assessment & Plan (07/23/2024 3:15 AM EST): Chronic issue for the past 8 years. Has had normal PFTs, normal stress test, has a had a right heart catheterization with pulmonary pressures of 23 mmHg, and echocardiograms without significant valvulopathy or cardiomyopathy. Has tried inhalers without help. Has started on Jardiance recently, but has not noticed that this has helped. I feel the Jardiance probably can be discontinued on discharge as it has not made her breathing any better and possibly could be contributing to a tendency towards hyponatremia. Assessment & Plan (04/20/2024 5:20 PM EDT): Longstanding acute on chronic dyspnea. Dyspnea present since 2016. Diagnosed with crest syndrome, level 3 CPET done in 2019 showing no rest or exercise-induced pulmonary hypertension, did show HFpEF physiology with abnormally low filling pressures at rest, PFTs in 2021 showed essentially normal lung function per her [facility] [place] She notes that she sleeps on 2 pillows but this is due to GERD. Patient sees cardiology team in [place] for HFpEF, considered NYHA class III stage C CHF. Had previously been on dapagliflozin but I do not see that she is taking it now, had started on spironolactone last December by her furrier designer, not currently taking. Patient does take Jardiance. She follows with Dr. Weems for her crest syndrome although she states she has not seen that specialist in some time, noted to be previously stable and limited without systemic scleroderma Was just discharged 5 days ago after an episode of A-fib RVR, had spontaneously converted on the morning following admission and was discharged. During that hospital stay she had some chest heaviness, troponins were not elevated and EKG was not abnormal per notes. She did start on digoxin and apixaban. Patient states that her dyspnea has gotten progressively worse since leaving hospital on 04/15. This is associated with some chest heaviness and tightness. She does state that the chest heaviness and tightness had resolved at the end of her hospital stay. The patient's grandson was staying at her house while she was hospitalized and apparently he had COVID although she did not have personal contact with him, today's viral panel, SARS-CoV-2 PCR and influenza are negative. Patient does have a history of pulmonary hypertension Last echocardiogram was in January showing normal LV systolic function, mild to moderate aortic regurgitation, negative bubble study and no significant change from December Chest x-ray shows no acute cardiopulmonary abnormality, D-dimer is low at 281. She does not have a leukocytosis or anemia. proBNP is relatively low at 535. She had 1 reading of the low O2 sat at 88%, currently satting 98 to 99% on room air. Patient denies fever or wheezing. Her furrier designer had recommended possibly repeating cardiopulmonary exercise test at her last appointment. She also has a rheumatology appointment in [place] next month for CREST Etiology of worsening dyspnea is unknown at this time.she is currently in sinus rhythm. ER physician spoke with cardiology who recommended repeat echocardiogram. We will place the patient on the shelter monitor and repeat her COVID test as well as lab work and continuous O2 sat monitoring. Will also repeat chest x-ray in a.m. we will consult cardiology. The patient also wonders if her new medications apixaban and digoxin are causing side effects Assessment & Plan (01/29/2024 6:17 PM EDT): Patient has been experiencing dyspnea with exertion and just went through both pulmonary and cardiac evaluation ordered by her PCP. Echocardiogram was a normal study with normal LVEF, no wall motion abnormalities, no valvular heart disease. Pulmonary function testing was only mildly abnormal without evidence of significant airway obstruction or bronchial hyperreactivity. Normal lung capacity with only mildly reduced diffusion capacity essentially unchanged over the past 1 to 2 years. No acute cardiopulmonary symptoms of concern. Outpatient workup in progress. Assessment & Plan (05/21/2022 1:58 PM EDT): Exam and history c/w CREST syndrome. Labs note+RNADEE but cytoplasmic pattern (anti-actin) and +RF. Chest CT from March with pleuro-parenchymal scarring at the apices and PFTS with reduced DLCO. Echo with elevated RVSP. CPET Level III performed - MIldly reduced exercise capacity with multiple physiologic abnormalities which contribute. There is impaired chronotropic response and abnormal increase in PCWP with increase in CO - a pattern which can be seen in HFpEF. Low Hgb contributes to exercise limitation, as does impaired peripheral extraction. Of note there is V/Q mismatch but no PAH at rest or with exercise. She continues to report dyspnea on exertion with even short walks. This may be worse since October 2021. No cough or symptoms at rest. She is doing PT but her arthritis has limited exercise. Her reflux is controlled and she is seeing GI. Her sleep eval disclosed she does not need CPAP. ROS continues to be positive for Raynaud's, arthritis of hands. She is not using Incruse because it did not help. PFTs with normal spirometry and lung volumes, reduced DLCO that is slightly worse than 2020. Chest CT 04/08/2022: stable mild fibrotic changes. Imp: Picture consistent with CREST syndrome but no pulm HTN. Could have small vessel disease or veno-occlusive disease. CPET suggested HFpEF. CT scan suggests pleural-parenchymal fibroelastosis but symptoms are out of proportion to amount of disease. GERD/reflux could be an important contributor. Plan - follow closely. - continue anti-reflux measures - refer to Cardiology HF service - increase PT (use upper arm exercises) - PFTs in 6 months Assessment & Plan (11/13/2021 3:32 PM EDT): Exam and history c/w CREST syndrome. Labs note+RANDEE but cytoplasmic pattern (anti-actin) and +RF. Chest CT from March with pleuro-parenchymal scarring at the apices and PFTS with reduced DLCO. Echo with elevated RVSP. CPET Level III performed - MIldly reduced exercise capacity with multiple physiologic abnormalities which contribute. There is impaired chronotropic response and abnormal increase in PCWP with increase in CO - a pattern which can be seen in HFpEF. Low Hgb contributes to exercise limitation, as does impaired peripheral extraction. Of note there is V/Q mismatch but no PAH at rest or with exercise. She continues to report dyspnea on exertion with even short walks. This is stable from September 2020. No cough or symptoms at rest. Her reflux is controlled and she is seeing GI. Her sleep eval disclosed she does not need CPAP. ROS continues to be positive for Raynaud's, arthritis of hands. She is not using Incruse because it did not help. Imp: Picture consistent with CREST syndrome but no pulm HTN. Could have small vessel disease or veno-occlusive disease. Her symptoms are relatively stable which is reassuring. CT scan suggests pleural-parenchymal fibroelastosis but symptoms are out of proportion to amount of disease. GERD/reflux could be an important contributor. Plan - follow closely. - continue anti-reflux measures - Chest CT and PFTs in April with follow up Assessment & Plan (05/15/2021 1:37 PM EDT): Exam and history c/w CREST syndrome. Labs note+RANDEE but cytoplasmic pattern (anti-actin) and +RF. Chest CT from March with pleuro-parenchymal scarring at the apices and PFTS with reduced DLCO. Echo with elevated RVSP. CPET Level III performed - MIldly reduced exercise capacity with multiple physiologic abnormalities which contribute. There is impaired chronotropic response and abnormal increase in PCWP with increase in CO - a pattern which can be seen in HFpEF. Low Hgb contributes to exercise limitation, as does impaired peripheral extraction. Of note there is V/Q mismatch but no PAH at rest or with exercise. She continues to report dyspnea on exertion with even short walks. This is stable from September 2020. No cough or symptoms at rest. Her reflux is still a problem and she is seeing GI and receiving more testing. Her sleep eval disclosed she does not need CPAP. ROS continues to be positive for Raynaud's, arthritis of hands. She is not using Incruse because it did not help. Clear lungs on exam. PFTs WNL and no change from September and Apr 2020 Imp: Picture consistent with CREST syndrome but no pulm HTN. Could have small vessel disease or veno-occlusive disease. Her symptoms are relatively stable which is reassuring. CT scan suggests pleural-parenchymal fibroelastosis but symptoms are out of proportion to amount of disease. GERD/reflux could be an important contributor. Plan - continued eval of esophageal disease - follow closely. - continue anti-reflux measures Assessment & Plan (10/24/2020 3:46 PM EDT): Evaluation for chronic dyspnea disrupted by COVID-19 pandemic. Exam and history c/w CREST syndrome. Labs note+RANDEE but cytoplasmic pattern (anti-actin) and +RF. Chest CT from March with pleuro-parenchymal scarring at the apices and PFTS with reduced DLCO. Echo with elevated RVSP. CPET Level III performed - MIldly reduced exercise capacity with multiple physiologic abnormalities which contribute. There is impaired chronotropic response and abnormal increase in PCWP with increase in CO - a pattern which can be seen in HFpEF. Low Hgb contributes to exercise limitation, as does impaired peripheral extraction. Of note there is V/Q mismatch but no PAH at rest or with exercise. She continues to report dyspnea on exertion with short walks. It may be a bit worse now. No cough or symptoms at rest. Her reflux is still a problem. She stopped using her CPAP at night and now notes worsening fatigue and non-restorative sleep. ROS continues to be positive for Raynaud's, arthritis of hands. Imp: Picture is still concerning for CREST syndrome but no pulm HTN. Could have small vessel disease or veno-occlusive disease. Her symptoms are relatively stable which is reassuring. CT scan suggests pleural-parenchymal fibroelastosis but symptoms are out of proportion to amount of disease. GERD/reflux could be an important contributor. Plan - refered to GI group for eval of esophageal disease, has appointment in October - trial Incruse - restart CPAP - referred to sleep medicine - follow closely. - continue anti-reflux measures Assessment & Plan (04/25/2020 3:59 PM EDT): Evaluation for chronic dyspnea disrupted by COVID-19 pandemic. Exam and history c/w CREST syndrome. Labs note+RANDEE but cytoplasmic pattern (anti-actin) and +RF. Chest CT from March with pleuro-parenchymal scarring at the apices and PFTS with reduced DLCO. Echo with elevated RVSP. CPET Level III performed and official read pending. Of note there is V/Q mismatch but no PAH at rest or with exercise. She continues to report stable dyspnea on exertion with short walks but remains active despite the quarantine. No cough or symptoms at rest. Her reflux is still a problem. She is using her CPAP at night. ROS continues to be positive for Raynaud's, arthritis of hands, and now notes some pedal edema that she attributes to the heat. Recent chest CT with no change. Imp: Picture is still concerning for CREST syndrome but no pulm HTN. Could have small vessel disease or veno-occlusive disease. Her symptoms are stable which is reassuring. CT scan suggests pleural-parenchymal fibroelastosis but symptoms are out of proportion to amount of disease. GERD/reflux could be an important contributor. Plan - await formal CPET read - refer to GI group for eval of esophageal disease - trial Incruse - refer to sleep medicine - follow closely. - continue anti-reflux measures Assessment & Plan (12/28/2019 3:27 PM EDT): Evaluation for chronic dyspnea disrupted by COVID-19 pandemic. Exam and history c/w CREST syndrome. Labs note+RANDEE but cytoplasmic pattern (anti-actin) and +RF. Chest CT from March with pleuro-parenchymal scarring at the apices and PFTS with reduced DLCO. Echo with elevated RVSP. She continues to report dyspnea with short walks but remains active despite the quarantine. No cough or symptoms at rest. Her reflux is better on a PPI and H2 vita combo. She is using her CPAP at night. ROS continues to be positive for Raynaud's, arthritis of hands, and now notes some pedal edema that she attributes to the heat. Imp: Picture is still concerning for CREST syndrome with associated pulm HTN. Could also have veno-occlusive disease. Symptoms and eval not consistent with Asthma or COPD. CT scan suggests pleural-parenchymal fibroelastosis but symptoms are out of proportion to amount of disease. GERD/reflux could be an important contributor, now controlled. Plan - schedule for level III CPET - refer to PH group - consider repeat chest CT with inspiratory and exp imaging in the future. - continue anti-reflux measures Assessment & Plan (10/06/2019 9:40 AM EST): She reports dyspnea with short walks. No cough or symptoms at rest. ROS is positive for worsening reflux symptoms, Raynaud's, occasional cough, arthritis of hands, and leg fatigue with standing. On exam she had a sat of 98%. We walked a flight of stairs and she had to stop to catch her breath. Her sat was 95%. Her fingers turned a little blue and the sat was hard to measure (Raynaud's) Her chest was clear, and she had a RRR without S3 on exam. There was mild edema and her hands had a few telangectasia and some joint deformities. PFTs with normal spirometry and lung volumes. Low DLCO (63%) Chest CT from March with pleuro-parenchymal scarring at the apicis. Imp: Picture is concerning for CREST syndrome with associated pulm HTN. Could also have veno-occlusive disease. Symptoms and eval not consistent with Asthma or COPD. 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 GERD/reflux could be an important contributor. Plan - check RANDEE, serologies - repeat Echo - consider CPET if above is not revealing as well as repeat chest CT (insp-exp) - can D/C asthma meds - anti-reflux measures discussed Assessment & Plan (05/22/2019 4:24 PM EDT): She had a normal echocardiogram and a normal nuclear stress test. She is on inhalers which were prescribed by her engineering manager electronics. It is likely that her complaints of shortness of breath are due to her lungs. Continue inhalers. Assessment & Plan (10/13/2018 1:46 PM EDT): She is happy to hear today that her echocardiogram and nuclear stress test were completely normal. Her CT scan of the chest showed COPD. I have asked her to discuss this in further detail with her engineering manager electronics. She tells me that he is planning to redo pulmonary function tests. All cardiac testing was normal. I will follow-up with her in 6 months just to touch base. Assessment & Plan (09/05/2018 3:42 PM EST): He has had extensive testing to workup her shortness of breath and everything has been unrevealing thus far. Her ETT was suboptimal. Dr. Cuevas ordered a stress echo. However, given her history of suboptimal heart rate and reduced functional capacity on previous testing, I do not believe that a stress echo would provide us with enough information. For that reason, I have changed this to an exercise stress test. She may need to be done as a pharmacologic if her heart rate does not reach target. I will follow-up with her after this. She will continue to follow-up with her engineering manager electronics regarding the CT and the repeat PFTs. Her symptoms are most likely pulmonary in origin. Assessment & Plan (11/16/2017 2:07 PM EDT): The cause of her shortness breath continues to be unclear but is likely not cardiac in nature. Echocardiogram showed normal heart function, no significant valvular disease, and normal lung pressures. Exercise stress test was suboptimal due to heart rate, but did not have EKG changes meeting criteria for ischemia. She reports has had a PFT in the past but none found in the system. Could consider ordering PFTs for further workup. Phone call to PCP office if they would like to order them and refer to pulmonary as appropriate. Assessment & Plan (09/16/2017 3:25 PM EST): The cause of her shortness breath is unclear. I like to start by getting an echocardiogram and treadmill stress test. If these are unremarkable may be worth repeating this pulmonary function test. I could not find them in the [facility] system. I'll plan follow-up with her after these are done. Postural dizziness with presyncope 09/16/2017 Assessment & Plan (09/29/2022 2:20 PM EST): Episode occurred after large bowel movement possibly vagal exacerbated by recent poor p.o. intake. Plan - IV fluid resuscitation. - Check orthostatic blood pressures. -PT/OT eval Assessment & Plan (10/13/2018 1:47 PM EDT): Lightheadedness and dizziness seems to be fleeting. It happened when she was in the office today with normal vital signs. Her symptoms improved after drinking a cup of water. She tells me that she is unable to drink any more water than she already does because she drinks constantly. If her dizziness continues, can consider vestibular rehab. Assessment & Plan (11/16/2017 4:30 PM EDT): Continues to have occasional dizziness. No recent falls. Carotid duplex showed no significant carotid artery stenosis. No arrhythmias noted during stress test. BPs in office not orthostatic today. TSH, Hgb, BMP have been normal. Question if this is related to a vestibular cause or related to her SOB. She does get up at night often to void and is also thirsty throughout the day. Glucose 102 on last labs. Could also consider pulmonary referral and obtain PFTs. Will discuss with PCP office. Assessment & Plan (09/16/2017 3:27 PM EST): The cause of her dizziness is also unclear. She has a family history of vascular disease but has no evidence of vascular disease or so. I like to get a carotid duplex to rule out vertebral insufficiency. I don't think it's related to hypotension because her blood pressure is fine in the office today she still having these symptoms. I would like to get some basic blood work including LFTs and a basic metabolic profile to make sure her electrolytes are okay and there is no clue there. Her TSH was normal and her hemoglobin was normal. My only other thoughts are whether this could be related to her vestibular system. She does not describe vertigo and she claims she was evaluated by physical therapist who didn't think this was the case. I also wonder if it could be related to sleep. She does wake up frequently at night to go the bathroom and she may not be getting a good night sleep. If our workup here is negative then I may set up pulmonary function tests and have her see a engineering manager electronics. Other hyperlipidemia 09/16/2017 Assessment & Plan (05/22/2019 4:25 PM EDT): Last year her lipid panel showed a total cholesterol of 212, HDL 53, LDL 129. In reviewing my last note from September it states that she did not tolerate statins in the past. Today she tells me that she took herself off of the statin but does not remember why. We plan to have it rechecked but I do not believe this was ever done. I did order a repeat lipid panel. Assessment & Plan (09/05/2018 3:44 PM EST): She did not tolerate a statin in the past. A year ago her lipids showed a total cholesterol of 212, HDL 53, LDL 129. She will have these rechecked by her PCP. Assessment & Plan (11/16/2017 2:08 PM EDT): Not currently on a statin. Her lipids are generally acceptable and carotid US showing no significant carotid artery stenosis. Continue to be followed by PCP for periodic monitoring and treat as necessary. Assessment & Plan (09/16/2017 3:25 PM EST): Her lipids are actually quite acceptable. If she has extensive vascular disease then a statin would be indicated. I don't think she necessarily needs a statin if her workup is unremarkable. Resolved Problems Problem Noted Date Diagnosed Date Resolved Date Atrial fibrillation with RVR 04/15/2024 07/23/2024 Assessment & Plan (06/11/2024 2:03 PM EST): Appropriately anticoagulated with Eliquis, which she is tolerating without difficulty. She has not had another episode of symptomatic atrial fibrillation since the one on 04/20. She did not tolerate digoxin (felt more dyspneic after starting it). She generally has difficulty tolerating medications. For now, I feel that it is reasonable for her to continue without any rate/rhythm control medications and see if she has recurrence of the arrhythmia. If she does, we will have to revisit this at that time. Assessment & Plan (04/20/2024 5:05 PM EDT): Patient presents today normal sinus rhythm rate 70. Will keep the patient on the shelter monitor and for now continue digoxin and apixaban. Her digoxin level was therapeutic. On-call furrier designer recommended echocardiogram, this may be limited availability at [facility] on a weekend and I have informed the patient of that Assessment & Plan (04/15/2024 4:21 AM EDT): Had an echocardiogram 6 weeks ago when she had her TIA. This showed a preserved ejection fraction. Mild to moderate atrial regurgitation. I do not feel that this needs to be repeated. [id number] of 5 given age, female and TIA. Will discontinue aspirin in favor of anticoagulation. Expressive aphasia 01/29/2024 Closed fracture of nasal bon e, initial encounter 09/29/2022 07/23/2024 Assessment & Plan (09/30/2022 7:33 AM EST): Status post fall with nasal bone fracture, minimally displaced as noted on CT. -Patient able to breathe through nares. -No significant cosmetic deformity. -On exam no septal swelling or evidence of hematoma. Images with no evidence of septal hematoma. -Case reviewed with ENT no further intervention. Plan -Oxycodone for moderate pain. Acetaminophen for mild pain. -Monitor for evidence of infection. Dehydration 09/29/2022 07/23/2024 Assessment & Plan (09/29/2022 2:08 PM EST): - Patient reports 2 weeks of poor p.o. intake -Lactic acid elevated to 4.18 down to 3.52 with IV fluids. - Encourage p.o. intake - IV fluids Encounters Date Type Department Care Team Description 07/15/2025 12:00 PM EST Home Care Visit [facility] [address] [place] [phone] Deena Malik, PT PT HOME VISIT 07/11/2025 11:00 AM EST Home Care Visit [facility] [address] [place] [address] Esther Bryant, OT OT HOME VISIT 07/11/2025 4:00 AM EST Home Care Visit [facility] [address] [place] [address] Michelle'Malika Cedillo, RN SN HOME VISIT 07/09/2025 11:00 AM EST Home Care Visit [facility] [address] [place] [address] Esther Bryant, OT OT HOME VISIT 07/08/2025 11:00 AM EST Home Care Visit [facility] [address] [place] [address] Deena Malik, PT PT HOME VISIT 07/08/2025 Episode Documentation Update [facility] [address] [place] [address] Rubina Bagley 07/05/2025 10:00 AM EST Home Care Visit [facility] [address] [place] [address] Deena Malik, PT PT EVALUATION 07/04/2025 2:00 AM EST Home Care Visit [facility] [address] [place] [address] Malika Mcintosh, RN SN HOME VISIT 07/03/2025 12:45 PM EST - 07/03/2025 11:59 PM EST Hospital Encounter [facility] [address] 3rd [place] [address] Yvan Bates MD Discharge Disposition: Home or Self Care 07/03/2025 Home Care Visit [facility] [address] [place] [address] Lori Malikecca, PT CASE COMMUNICATION 07/02/2025 10:00 AM EST Home Care Visit [facility] [address] [place] [address] Esther Bryant, OT OT HOME VISIT 07/02/2025 2:00 AM EST Home Care Visit [facility] [address] [place] [address] Malika Mcintosh RN SN HOME VISIT 07/02/2025 [facility] [address] [place] [address] 3rd Floor, [address] [place] [address] 06/26/2025 2:15 PM EST Home Care Visit [facility] [address] [place] [address] Esther Bryant, OT OT EVALUATION 06/25/2025 Home Care Visit [facility] [address] [place] [address] Jasmin Sage, OT TELEPHONE ENCOUNTER 06/24/2025 Home Care Visit [facility] [address] [place] [address] Esther Bryant, OT TELEPHONE ENCOUNTER 06/21/2025 3:45 AM EST Home Care Visit [facility] [address] [place] [address] Malika Mcintosh, PEARL SN OASIS START OF CARE (SOC) 06/21/2025 Plan of Care Documentation [facility] [address] [place] [address] 06/20/2025 Orders Only [facility] [address] [place] [address] Homehealth, Interface MD Royer 06/17/2025 6:55 PM EST Ancillary Procedure [facility], Ultrasound - Main [facility] [address] [place] [address] Willie Samaniego MD 06/17/2025 6:26 PM EST - 06/20/2025 3:10 PM EST Hospital Encounter [facility] [address] [place] [address] Willie Samaniego, MD Payton, MD Harsha Gomez, MD Silvestre David Eli, MD Discharge Disposition: Home-Health Care [facility] 06/17/2025 Procedure Pass [facility], Ct Scan [address] [address] 06/17/2025 Procedure Pass [address] [address] 06/17/2025 Procedure [facility], Ct Scan [address] [address] 06/15/2025 4:27 PM EST - 06/15/2025 5:31 PM EST Emergency [facility] [address] [place] [address] Discharge Disposition: Left Without Being Seen 06/12/2025 10:30 AM EST Office Visit [facility] [address] [place] [address] Sarah Balderas MD Nipple anomaly (Primary Dx); Nipple discharge 06/03/2025 2:00 PM EST Office Visit [facility] [address] [place] [address] Coco Smith MD Primary osteoarthritis of left knee (Primary Dx) 05/31/2025 Orders Only [facility] [address] [facility], 2nd Floor, [address] [place] [address] Bossman Weems MD 05/24/2025 Orders Only [facility] [place] [address] [facility], [address] [place] [address] Bossman Weems MD 05/22/2025 1:42 PM EDT - 05/22/2025 11:59 PM EDT Hospital Encounter [facility] [address] [place] [address] Bossman Weems MD Discharge Disposition: Home or Self Care 05/17/2025 Transcribe Orders Virtual Department [address] [place] [address] Nova Carroll PA Nipple discharge (Primary Dx) 05/16/2025 2:30 PM EDT Office Visit [facility] [address] [place] [address] 3rd Floor, [address] [place] [address] Gracie Spring DNP Dyspnea on exertion (Primary Dx) 05/14/2025 Transcribe Orders Virtual Department [address] [place] [address] Nova Carroll PA Nipple discharge (Primary Dx) 05/10/2025 11:07 AM EDT - 05/10/2025 11:59 PM EDT Hospital Encounter [address] [address] Nova Carroll PA Discharge Disposition: Home or Self Care 05/10/2025 11:07 AM EDT - 05/10/2025 11:59 PM EDT Hospital Encounter [address] [address] Nova Carroll PA Discharge Disposition: Home or Self Care 05/08/2025 Telephone [facility] [address] [place] [address] April Shaw 05/08/2025 Transcribe Orders [facility] [address] [place] [address] Bossman Weems MD 04/25/2025 1:00 PM EDT - 04/25/2025 11:59 PM EDT Hospital Encounter [facility], Mi Scan [address] [address] Bossman Weems MD Discharge Disposition: Home or Self Care 04/25/2025 12:03 PM EDT - 04/25/2025 12:59 PM EDT Hospital Encounter [facility] [address] [place] [address] Bossman Weems MD Discharge Disposition: Home or Self Care 04/11/2025 Procedure Pass [facility], Ultrasound - [facility] [address] [place] [address] 04/11/2025 Procedure Pass [facility], Mammography- [facility] [address] [place] [address] 03/22/2025 Procedure Pass [facility], Ct Scan - [facility] [address] [place] [address] 03/22/[address] [facility] Echo Lab [address] [place] [address] from Last 3 Months Immunizations Immunization Administration Dates Next Due COVID-19 (Pre-05/23) Moderna Vaccine, mRNA, PF 05/17/2022,10/09/2020,09/11/2020 [id number] FORMULATION 07/22/2009 INFLUENZA, SPLIT VIRUS, TRIV ALENT W/ PRESERVATIVE IM 06/19/2010 Influenza High-Dose Trivalen t Preservative Free IM 04/15/2024,04/19/2020,05/25/2019,06/15,06/07/2016,05/31/2015 Influenza Quadrivalent w/ Pr eservative IM 05/25/2019 Influenza Trivalent Adjuvant ed Preservative free IM 05/22/2018 Pneumococcal conjugate PCV13 08/11/2016 Pneumococcal polysaccharide PPSV23 07/05/2020 Family History Medical History Relation Comments Heart attack Brother Rheumatic fever Brother Asthma Daughter Heart attack Father Breast cancer Maternal Aunt Heart disease Mother Stroke Mother Breast cancer Paternal Aunt Relation Status Comments Brother Daughter Father Maternal Aunt at 65 Mother Paternal Aunt Social History Tobacco Use Types Packs/Day Years Used Date Smoking Tobacco: Never Smokeless Tobacco: Never Tobacco Cessation:Counseling Given: Not Answered Alcohol Use Standard Drinks/Week Comments Yes 0 [...] housing situation today? I have jose sing 06/18/2025 How many times have you move [...] Orientation Straight 07/28/2018 8: 57 AM EST Last Filed Vital Signs Vital Sign Reading Time Taken Comments Blood Pressure 124/70 07/15/2025 12:38 PM EST Pulse 68 07/15/2025 12:38 PM EST Temperature 36.3 C (97.3 F) 07/15/2025 12:38 PM EST Respiratory Rate 18 07/11/2025 11:28 AM EST Oxygen Saturation 97% 07/15/2025 12:38 PM EST Inhaled Oxygen Concentration - - Weight 62.7 kg (138 lb 4 oz) 07/02/2025 11:01 AM EST Height 162.6 cm (5' 4 ) 06/21/2025 12:01 PM EST Body Mass Index 23.73 06/21/2025 12:01 PM EST Plan of Treatment Upcoming Encounters Date Type Department Care Team (Late st Contact Info) Description 07/16/2025 10:45 AM EST Appointment [facility] [address] [place] [phone] Esther Bryant, OT [address] [place] [address] [email or web address] 07/17/2025 4:00 AM EST Appointment [facility] [address] [place] [phone] Malika Mcintosh, RN [address] [place] [address] [email or web address] 07/18/2025 10:45 AM EST Appointment [facility] [address] [place] [phone] Esther Bryant, OT [address] [place] [address] [email or web address] 07/22/2025 1:00 AM EST Appointment [facility] [address] [place] [phone] Esther Bryant, OT [address] [place] [address] [email or web address] 07/23/2025 12:30 AM EST Appointment [facility] [address] [place] [phone] O'Malika Cedillo RN [address] [place] [phone] 07/23/2025 1:00 AM EST Appointment [facility] [address] [place] [phone] Esther Bryant, OT [address] [place] [address] 07/24/2025 1:30 PM EST Office Visit [facility] [address] [place] [address] Karina Pedraza, PLANNING AND ANALYSIS MANAGER [address] [place] [phone] [email or web address] 07/31/2025 3:00 AM EST Appointment [facility] [address] [place] [address] O'Malika Cedillo RN [address] [place] [phone] 08/07/2025 1:00 AM EST Appointment [facility] [address] [place], [place] [phone] O'Malika Cedillo, PEARL [address] [place] [address] 08/15/2025 Appointment [facility] [address] [place] [phone] O'Malika Cedillo, PEARL [address] [place] [address] 08/21/2025 2:00 PM EST Office Visit [facility] [address] [facility] 3rd Floor, [address] [place] [address] Yvan Bates MD [address] [facility], [address] [place] [address] [email or web address] 09/04/2025 1:00 PM EST Office Visit [facility] [address] [place] [phone] Coco Smith MD [address] [facility] [place] [address] [email or web address] 11/01/2025 1:30 PM EDT Telemedicine [facility] [address] [facility], 2nd Floor, [address] [place] [address] Bossman Weems MD [address] [place] [address] [place] [phone] [email or web address] 12/10/2025 2:00 PM EDT Office Visit [facility] [address] [place] [address] Sarah Balderas MD [address] [facility], 2nd [place] [address] [email or web address] Health Maintenance Due Date Last Done Comments Adult Td,Tdap Booster 1940 DEPRESSION SCREENING 1951 ZOSTER VACCINES (1 of 2) 10/24/1989 OSTEOPOROSIS SCREENING INITIAL (ONE-TIME) 10/24/2004 RSV VACCINE (1 - 1-dose 75+ series) 10/24/2014 COVID-19 VACCINE (2024- season) 2025 05/01/2025, 04/30/2024, 05/31/2023, Additional history exists CREATININE LEVEL 06/19/2026 06/19/2025, , 06/17/2025, Additional history exists PNEUMOCOCCAL VACCINES (50+ years) Completed 07/05/2020, 08/11/2016 INFLUENZA VACCINE Completed 04/18/2025, , 05/16/2023, Additional history exists HEPATITIS A VACCINES Aged Out No long er eligible based on patient's age to complete this topic HIB VACCINES Aged Out No longer eligi ble based on patient's age to complete this topic MENINGOCOCCAL VACCINES (ACWY) Aged Out No longer eligible based on patient's age to complete this topic MENINGOCOCCAL VACCINES (B) Aged Out N o longer eligible based on patient's age to complete this topic Medical Devices Not on file Procedures Procedure Name Priority Date/Time Associated Diagnosis Comments US LOWER EXTREMITY VEINS DUPLEX COMPLETE (BILATERAL) Routine 07/03/2025 2:01 PM EST Swelling, limb CBC Routine 06/19/2025 11:06 AM EST BASIC METABOLIC PANEL (BMP) Routine 06/19/2025 6:50 AM EST URINE SEDIMENT Today 06/18/2025 2:05 PM EST URINALYSIS Routine 06/18/2025 2:05 PM EST COMPREHENSIVE METABOLIC PANEL (CMP) Timed 06/18/2025 5:36 AM EST TROPONIN Routine 06/18/2025 5:36 AM EST CBC Timed 06/18/2025 5:35 AM EST TROPONIN Routine 06/18/2025 12:40 AM EST LAB ADD-ON STAT 06/17/2025 11:20 PM EST ECG 12-LEAD STAT 06/17/2025 10:26 PM EST URINALYSIS WITH REFLEX TO URINE CULTURE STAT 06/17/2025 10:12 PM EST TROPONIN STAT 06/17/2025 8:[address] HEAD WITHOUT CONTRAST Routine 06/17/2025 8:[address] CHEST WITH CONTRAST Routine 8:[address] ABDOMEN/PELVIS WITH CONTRAST Routine 06/17/2025 8:09 PM EST PT-INR STAT 06/17/2025 7:27 PM EST LAB ADD-ON STAT 06/17/2025 7:24 PM EST NT-PROBNP STAT 06/17/2025 7:21 PM EST LFTS (HEPATIC PANEL) STAT 06/17/2025 7:21 PM EST LIPASE STAT 06/17/2025 7:21 PM EST CBC AND DIFFERENTIAL STAT 06/17/2025 7:21 PM EST MAGNESIUM STAT 06/17/2025 7:21 PM EST LACTATE (BLOOD GAS) STAT 06/17/2025 7 :21 PM EST TROPONIN STAT 06/17/2025 7:21 PM EST BASIC METABOLIC PANEL (BMP) STAT 06/17/2025 7:21 PM EST CBC AND DIFFERENTIAL STAT 06/17/2025 7:21 PM EST US BEDSIDE Routine 06/17/2025 6:50 PM EST PULMONARY FUNCTION TEST Routine 05/22/2025 2:41 PM EDT Dyspnea on exertion BI US BREAST LIMITED (LEFT) Routine 05/10/2025 12:35 PM EDT Nipple discharge BI MAMMOGRAM DIAGNOSTIC WITH TOMOSYNTHESIS WITH CAD (BILATERAL) Routine 05/10/2025 12:10 PM EDT Nipple discharge CT CHEST (HIGH RESOLUTION) WITHOUT CONTRAST Routine 04/25/2025 1:18 PM EDT Interstitial lung disease TTE COMPREHENSIVE Routine 04/25/2025 1:0 9 PM EDT Dyspnea, unspecified type from Last 3 Months Results * US Lower Extremity Veins Duplex Complete (Bilateral) (07/03/2025 2:01 PM EST) Height 163 cm Weight 63 kg Anatomical Region Laterality Modality Ultrasound Narrative 07/04/2025 11:26 AM EST Findings: There is no evidence of acute Deep or Superficial venous thrombus in either lower extremity. There is no valvular incompetence of the Deep or Superficial venous systems. Conclusion: No evidence of DVT. No evidence of significant venous insufficiency in either leg. Lower Venous Left COMMON FEMORAL VEIN normal compressibility and flow characteristics FEMORAL VEIN normal compressibility and flow characteristics POPLITEAL VEIN normal compressibility and flow characteristics GASTROCNEMIUS normal compressibility and flow characteristics POSTERIOR TIBIAL VEINS normal compressibility and flow characteristics PERONEAL VEINS not seen GREAT SAPHENOUS VEIN normal compressibility and flow characteristics SMALL SAPHENOUS VEIN not seen GREAT SAPHENOUS VEIN REFLUX FINDINGS Sapheno-Femoral Junction: no reflux Lower Venous Right COMMON FEMORAL VEIN normal compressibility and flow characteristics FEMORAL VEIN normal compressibility and flow characteristics POPLITEAL VEIN normal compressibility and flow characteristics GASTROCNEMIUS normal compressibility and flow characteristics POSTERIOR TIBIAL VEINS normal compressibility and flow characteristics PERONEAL VEINS not seen GREAT SAPHENOUS VEIN normal compressibility and flow characteristics SMALL SAPHENOUS VEIN normal compressibility and flow characteristics GREAT SAPHENOUS VEIN REFLUX FINDINGS Sapheno-Femoral Junction: no reflux SMALL SAPHENOUS VEIN REFLUX FINDINGS Popliteal Fossa: no reflux Introductory Comments Techniques used for this study included: color flow Doppler and spectral waveform Doppler. Yvan Bates MD US VASCULAR Final Result * (ABNORMAL) CBC (06/19/2025 11:06 AM EST) Only the most recent of2 resultswithin the time period is included. WBC 7.50 4.00 - 11.00 K/uL 06/19/2025 11:25 AM [facility] RBC 3.61(L) 4.00 - 5.20 M/uL 06/19/2025 11:25 AM [facility] Hemoglobin 11.1(L) 12.0 - 16.0 g/dL 06/19/2025 11:25 AM [facility] Hematocrit 32.0(L) 36.0 - 46.0 % 06/19/2025 11:25 AM [facility] MCV 88.6 80.0 - 100.0 fL 06/19/2025 11:25 AM [facility] MCH 30.7 27.0 - 31.0 pg 06/19/2025 11:25 AM [facility] MCHC 34.7 32.0 - 36.0 g/dL 06/19/2025 11:25 AM [facility] PLT 294 150 - 450 K/uL 06/19/2025 11:25 AM [facility] MPV 9.4 8.4 - 12.0 fL 06/19/2025 11:25 AM [facility] RDW-CV 12.9 11.5 - 14.5 % 06/19/2025 11:25 AM [facility] Absolute NRBC 0.00 <=0.00 K cells/uL 06/19/2025 11:25 AM [facility] NRBC 0.0 <=0.0 /100 WBCs 06/19/2025 11:25 AM [facility] Blood (Blood) Venipuncture / Unknown 06/19/2025 11:06 AM EST 06/19/2025 11:19 AM EST us Domenica Rivers MD LAB BLOOD BKR ORDERABLES Fi nal Result [address] [address] * (ABNORMAL) Basic Metabolic Panel (BMP) (06/19/2025 6:50 AM EST) Only the most recent of2 resultswithin the time period is included. Sodium 133(L) 136 - 145 mmol/L 06/19/2025 7:40 AM [facility] Potassium 4.6 3.4 - 5.1 mmol/L 06/19/2025 7:40 AM [facility] Chloride 99 98 - 107 mmol/L 06/19/2025 7:40 AM [facility] CO2 24 20 - 31 mmol/L 06/19/2025 7:40 AM [facility] Anion Gap 10 3 - 17 mmol/L 06/19/2025 7:40 AM [facility] BUN 16 6 - 23 mg/dL 06/19/2025 7:40 AM [facility] Creatinine 0.70 0.50 - 1.00 mg/dL 06/19/2025 7:40 AM [facility] eGFR 85 >59 mL/min/1.7 3m2 06/19/2025 7:40 AM [facility] Comment:Estimated glomerular filtration rate calculated using the CKD-EPI refit equation. Glucose 106(H) 70 - 99 mg/dL 06/19/2025 7:40 AM [facility] Calcium 8.8 8.5 - 10.5 mg/dL 06/19/2025 7:40 AM [facility] Blood (Blood) Venipuncture / Unknown 06/19/2025 6:50 AM EST 06/19/2025 7:00 AM EST Domenica Rivers MD LAB BLOOD BKR ORDERABLES Fi nal Result [address] [address] * (ABNORMAL) URINE SEDIMENT (06/18/2025 2:05 PM EST) WBC >100(A) 0 - 9 /hpf 06/18/2025 2:34 PM [facility] RBC 3-5(A) 0 - 2 /hpf 06/18/2025 2:34 PM [facility] Bacteria 3+(A) Negative /hpf 06/18/2025 2:34 PM [facility] Urine (Urine, Voided) Non-Blood Collection / Unknown 06/18/2025 2:05 PM EST 06/18/2025 2:13 PM EST Domenica Rivers MD LAB URINE ORDERABLES Final Result Performing Organization Address City/[facility]/ZIP Co de Phone Number [address] [address] * (ABNORMAL) Urinalysis (06/18/2025 2:05 PM EST) Color Yellow Yellow 06/18/2025 2:23 PM [facility] Clarity Turbid(A) Clear 06/18/2025 2:23 PM [facility] Glucose Negative Negative 06/18/2025 2:23 PM [facility] Bilirubin Urine 1+(A) Negative 2:23 PM [facility] Ketone Urine Trace(A) Negative 06/18/2025 2:23 PM [facility] Specific [place] 1.025 1.001 - 1.035 06/18/2025 2:23 PM [facility] Blood 3+(A) Negative 06/18/2025 2:23 PM [facility] pH 6.5 5.0 - 8.0 06/18/2025 2:23 PM [facility] Protein 3+(A) Negative 06/18/2025 2:23 PM [facility] Nitrites Positive(A) Negative 06/18/2025 2:23 PM [facility] Leukocyte Esterase 2+(A) Negative 06/18/2025 2:23 PM [facility] Urobilinogen Negative Negative 06/18/2025 2:23 PM [facility] Urine (Urine, Voided) Non-Blood Collection / Unknown 06/18/2025 2:05 PM EST 06/18/2025 2:13 PM EST Domenica Rivers MD LAB URINE ORDERABLES Final Result Performing Organization Address City/[facility]/ZIP Co de Phone Number [address] [address] * (ABNORMAL) Comprehensive Metabolic Panel (CMP) (06/18/2025 5:36 AM EST) Sodium 127(L) 136 - 145 mmol/L 06/18/2025 6:18 AM [facility] Potassium 4.5 3.4 - 5.1 mmol/L 06/18/2025 6:18 AM [facility] Comment:NOTE: Specimen hemol yzed. Results may be falsely increased. Chloride 94(L) 98 - 107 mmol/L 06/18/2025 6:18 AM [facility] CO2 23 20 - 31 mmol/L 06/18/2025 6:18 AM [facility] Anion Gap 10 3 - 17 mmol/L 06/18/2025 6:18 AM [facility] BUN 12 6 - 23 mg/dL 06/18/2025 6:18 AM [facility] Creatinine 0.70 0.50 - 1.00 mg/dL 06/18/2025 6:18 AM [facility] eGFR 85 >59 mL/min/1.7 3m2 06/18/2025 6:18 AM [facility] Comment:Estimated glomerular filtration rate calculated using the CKD-EPI refit equation. Glucose 122(H) 70 - 99 mg/dL 06/18/2025 6:18 AM [facility] Calcium 8.7 8.5 - 10.5 mg/dL 06/18/2025 6:18 AM [facility] AST 30 <33 U/L 06/18/2025 6:18 AM [facility] Comment:NOTE: Specimen hemol yzed. Results may be falsely increased. ALT 17 <34 U/L 06/18/2025 6:18 AM [facility] Alkaline Phosphatase 67 40 - 130 U/L 06/18/2025 6:18 AM [facility] Bilirubin, Total 0.6 0.0 - 1.2 mg/dL 06/18/2025 6:18 AM [facility] Total Protein 5.8(L) 6.4 - 8.3 g/dL 06/18/2025 6:18 AM [facility] Albumin 3.7 3.5 - 5.2 g/dL 06/18/2025 6:18 AM EST [facility] Globulin 2.1 1.9 - 4.1 g/dL 06/18/2025 6:18 AM [facility] Blood (Blood) Venipuncture / Unknown 06/18/2025 5:36 AM EST 06/18/2025 5:42 AM EST Edd Mcleod MD LAB BLOOD BKR ORDERABLES Final Result Performing Organization Address City/[facility] Co de Phone Number [address] [address] * (ABNORMAL) Troponin (06/18/2025 5:36 AM EST) Only the most recent of4 resultswithin the time period is included. Troponin-T HS Gen5 134(H) 0 - 9 ng/L 06/18/2025 12:04 PM [facility] Blood (Blood) Venipuncture / Unknown 06/18/2025 5:36 AM EST 06/18/2025 5:42 AM EST Edd Mcleod MD LAB BLOOD BKR ORDERABLES Final Result Performing Organization Address City/[facility] Co de Phone Number [address] [address] * Lab Add-On (06/17/2025 11:20 PM EST) Only the most recent of2 resultswithin the time period is included. Specimen Date/Time 06/22/2025 11:36 PM [facility] Test Requested proBNP 06/22/2025 11:36 PM [facility] Specimen Description 06/22/2025 11:36 PM [facility] Comments 06/22/2025 11:36 PM [facility] Was this request processed? Yes 06/22/2025 11:36 PM [facility] Other (Other) 06/17/2025 11: 20 PM EST 06/17/2025 11:20 PM EST us Missy Payton MD LAB GENERAL ORDERABLES Final Result Performing Organization Address [facility]/ZIP Co de Phone Number [facility] [address] [place] [address] * ECG 12-LEAD (06/17/2025 10:26 PM EST) Ventricular Rate EKG/MIN 67 BPM [facility] Atrial Rate [address] [facility] [address] Interval 206 ms [facility] QRS Duration 64 ms [facility] QT Interval 404 ms [facility] QTC Interval 426 ms [facility] P [place] 37 degrees [facility] R Wave [place] -16 degrees [facility] T Wave [place] 19 degrees [facility] 06/17/2025 10:2 6 PM EST 06/18/2025 2:09 PM EST Narrative [facility] - 06/18/2025 2:09 PM EST Normal sinus rhythm Minimal voltage criteria for LVH, may be normal variant Borderline ECG When compared with ECG of 17-Jun-2025 19:02, Sinus rhythm has replaced Atrial fibrillation Vent. rate has decreased by [address] elevation has replaced ST depression in Lateral leads T wave inversion no longer evident in Lateral leads Confirmed by Yvan Bates ([id number]) on 06/18/2025 2:09:09 PM us Willie Samaniego MD ECG ORDERABLES Final Result Performing Organization Address [facility] Co de Phone Number [email or web address] * (ABNORMAL) Urinalysis with Reflex to Urine Culture (06/17/2025 10:12 PM EST) Color Yellow Yellow 06/17/2025 10:38 PM EST [facility] Clarity Clear Clear 06/17/2025 10:38 PM EST [facility] Glucose Negative Negative 06/17/2025 10:38 PM EST [facility] Bilirubin Urine Negative Negative 10:38 PM EST [facility] Ketone Urine 1+(A) Negative 06/17/2025 10:38 PM EST [facility] Specific [place] 1.010 1.001 - 1.035 06/17/2025 10:38 PM EST [facility] Blood Negative Negative 06/17/2025 10:38 PM EST [facility] pH 7.0 5.0 - 8.0 06/17/2025 10:38 PM EST [facility] Protein Negative Negative 06/17/2025 10:38 PM EST [facility] Nitrites Negative Negative 06/17/2025 10:38 PM EST [facility] Leukocyte Esterase Negative Negative 06/17/2025 10:38 PM EST [facility] Urobilinogen Negative Negative 06/17/2025 10:38 PM EST [facility] Urine (Urine, Straight Catheter) Non-Blood Collection / Unknown 06/17/2025 10:12 PM EST 06/17/2025 10:21 PM EST us Willie Samaniego MD LAB URINE ORDERABLES Final Resu lt [address] [address] * CT HEAD WITHOUT CONTRAST (06/17/2025 8:09 PM EST) Anatomical Region Laterality Modality Head Computed Tomogra phy 06/17/2025 10:5 2 PM EST Impressions 06/17/2025 11:00 PM EST No acute intracranial hemorrhage, midline shift, or mass effect within exam limitations. Narrative 06/17/2025 11:[address] HEAD WITHOUT CONTRAST Referring clinician's provided indication for this examination in Epic: * Mental status change, unknown cause TECHNIQUE: Multidetector-row CT of the head was performed without intravenous contrast using tailored dose modulation techniques. Images were reconstructed in the axial, coronal, and sagittal planes. Comparison: MRI brain from January 29, 2024. CTA head and neck from January 29, 2024. FINDINGS: Study was ordered as a noncontrast evaluation; however, due to technique and acquisition of the CT head, contrast partially opacifies the intracranial vasculature. Brain Parenchyma: No acute intraparenchymal hemorrhage, midline shift, or mass effect within exam limitations. Ventricular System and Extra-Axial Spaces: The ventricles and sulci are prominent. No extra-axial fluid collections. Basilar cisterns are patent. No hydrocephalus. Calcified intracranial vascular disease. Early bifurcation of the left M1 segment. Osseous and Extracranial Structures: No acute calvarial fracture. The mastoid air cells are well-aerated. The paranasal sinuses are grossly clear. The bilateral globes are intact with bilateral lens replacement. The soft tissues are unremarkable. Procedure Note Richard Suazo MD - 06/17/2025 CT HEAD WITHOUT CONTRAST Referring clinician's provided indication for this examination in [facility]: *Mental status change, unknown cause TECHNIQUE: Multidetector-row CT of the head was performed withoutintravenous contrast using tailored dose modulation techniques. Imageswere reconstructed in the axial, coronal, and sagittal planes. Comparison: MRI brain from January 29, 2024. CTA head and neck from December. FINDINGS: Study was ordered as a noncontrast evaluation; however, due to techniqueand acquisition of the CT head, contrast partially opacifies theintracranial vasculature. Brain Parenchyma: No acute intraparenchymal hemorrhage, midline shift, ormass effect within exam limitations. Ventricular System and Extra-Axial Spaces: The ventricles and sulci areprominent. No extra-axial fluid collections. Basilar cisterns are patent.No hydrocephalus. Calcified intracranial vascular disease. Earlybifurcation of the left M1 segment. Osseous and Extracranial Structures: No acute calvarial fracture. Themastoid air cells are well-aerated. The paranasal sinuses are grosslyclear. The bilateral globes are intact with bilateral lens replacement.The soft tissues are unremarkable. IMPRESSION: No acute intracranial hemorrhage, midline shift, or mass effect withinexam limitations. us Willie Samaniego MD IM CT HEAD/NECK Final Result * CT CHEST WITH CONTRAST (06/17/2025 8:09 PM EST) Anatomical Region Laterality Modality Chest Computed Tomogra phy 06/17/2025 10:5 2 PM EST Impressions 06/17/2025 11:12 PM EST 1. Motion degraded examination which limits evaluation. Within exam limitations, there is mild cardiomegaly with apical interlobular septal thickening which may relate to interstitial edema. Correlation with appropriate lab work is recommended. 2. Moderate hiatal hernia with patulous fluid containing distal esophagus likely related to reflux. Narrative 06/17/2025 11:[address] CHEST WITH CONTRAST Referring clinician's provided indication for this examination in [facility]: * Pneumonia, effusion or abscess suspected, xray done TECHNIQUE: Note that the examination was ordered with contrast; however, obtained images are noncontrast. Exam technique has been adjusted to reflect this. Multidetector CT of the chest was performed without intravenous contrast using tailored dose modulation techniques. COMPARISON: CT chest from April 25, 2025. FINDINGS: Note that exam images are degraded by motion artifact which limits evaluation. Exam findings are stated as within this limitation. Devices/Tubes/Lines: None. Lungs: Bibasilar atelectatic changes. Central airways are patent. No suspicious pulmonary nodularity. Mild apical interlobular septal thickening. Pleura: No pleural effusion or pneumothorax. Mediastinum: Mild cardiomegaly with left atrial enlargement. Trace anterior pericardial effusion. Mild amount of coronary calcifications. Moderate hiatal hernia. Patulous fluid containing distal esophagus. Lymph Nodes: No enlarged supraclavicular, axillary, mediastinal, or hilar lymph nodes. Upper Abdomen: Please see concurrent abdominal CT for abdominal findings. Chest Wall: No chest wall mass. Bones: Multilevel degenerative change of the visualized spine. Motion artifact limits evaluation of the sternum and anterior ribs. Procedure Note Richard Suazo MD - 06/17/2025 CT CHEST WITH CONTRAST Referring clinician's provided indication for this examination in [facility]: *Pneumonia, effusion or abscess suspected, xray done TECHNIQUE: Note that the examination was ordered with contrast; however, obtainedimages are noncontrast. Exam technique has been adjusted to reflect this.Multidetector CT of the chest was performed without intravenous contrastusing tailored dose modulation techniques. COMPARISON: CT chest from April 25, 2025. FINDINGS: Note that exam images are degraded by motion artifact which limitsevaluation. Exam findings are stated as within this limitation. Devices/Tubes/Lines: None. Lungs: Bibasilar atelectatic changes. Central airways are patent. Nosuspicious pulmonary nodularity. Mild apical interlobular septalthickening. Pleura: No pleural effusion or pneumothorax. Mediastinum: Mild cardiomegaly with left atrial enlargement. Traceanterior pericardial effusion. Mild amount of coronary calcifications.Moderate hiatal hernia. Patulous fluid containing distal esophagus. Lymph Nodes: No enlarged supraclavicular, axillary, mediastinal, or hilarlymph nodes. Upper Abdomen: Please see concurrent abdominal CT for abdominalfindings. Chest Wall: No chest wall mass. Bones: Multilevel degenerative change of the visualized spine. Motionartifact limits evaluation of the sternum and anterior ribs. IMPRESSION: 1. Motion degraded examination which limits evaluation. Within examlimitations, there is mild cardiomegaly with apical interlobular septalthickening which may relate to interstitial edema. Correlation withappropriate lab work is recommended. 2. Moderate hiatal hernia with patulous fluid containing distal esophaguslikely related to reflux. Willie Samanieog MD IM CT CHEST Final Result * CT ABDOMEN/PELVIS WITH CONTRAST (06/17/2025 8:09 PM EST) Anatomical Region Laterality Modality Abdomen, Pelvis Computed Tomogra phy 06/17/2025 11:1 2 PM EST Impressions 06/17/2025 11:25 PM EST Limited evaluation secondary to extensive motion artifact. Within exam limitations, no bowel obstruction, fluid collection, enterocolitis, or other CT-evident intra-abdominal source of infection/inflammation. Narrative 06/17/2025 11:[address] ABDOMEN/PELVIS WITH CONTRAST Referring clinician's provided indication for this examination in Epic: * Abdominal pain, acute, nonlocalized TECHNIQUE: Multidetector-row CT of the abdomen and pelvis was performed after administration of intravenous contrast using tailored dose modulation techniques. Images were reconstructed in the axial, coronal, and sagittal planes. COMPARISON: CT abdomen and pelvis from September 29, 2022 FINDINGS: Lower Chest: CT chest from the same day is reported separately. Liver: No focal lesions. Biliary: Status post cholecystectomy. Mild intra and extrahepatic biliary ductal dilation likely related to post cholecystectomy status. Spleen: No splenomegaly or focal lesions. Pancreas: Atrophic appearance of the pancreas. No ductal dilation or inflammatory change. Multiple cystic-appearing lesions throughout the pancreatic parenchyma, for example a 0.8 cm cystic lesion along the distal body of the pancreas likely to reflect an IPMN. Adrenal Glands: No nodules. Kidneys/Ureters: No stones or hydronephrosis. Bowel: No focal inflammatory change or evidence of obstruction within the limitations of extensive motion artifact. Colonic diverticulosis. Appendix not visualized, no secondary signs of appendicitis. Moderate hiatal hernia. Peritoneum/Retroperitoneum: No pneumoperitoneum or free fluid. Lymph Nodes: No enlarged lymphadenopathy. Pelvic Organs/Bladder: Bladder is unremarkable for the degree of distention with layering dependent contrast from urinary excretion. Vessels: Aortic atherosclerosis. No aortic aneurysm. Bones/Soft Tissues: Degenerative changes of the spine. Procedure Note Richard Suazo MD - 06/17/2025 CT ABDOMEN/PELVIS WITH CONTRAST Referring clinician's provided indication for this examination in Epic: *Abdominal pain, acute, nonlocalized TECHNIQUE: Multidetector-row CT of the abdomen and pelvis was performedafter administration of intravenous contrast using tailored dosemodulation techniques. Images were reconstructed in the axial, coronal,and sagittal planes. COMPARISON: CT abdomen and pelvis from September 29, 2022 FINDINGS: Lower Chest: CT chest from the same day is reported separately. Liver: No focal lesions. Biliary: Status post cholecystectomy. Mild intra and extrahepatic biliaryductal dilation likely related to post cholecystectomy status. Spleen: No splenomegaly or focal lesions. Pancreas: Atrophic appearance of the pancreas. No ductal dilation orinflammatory change. Multiple cystic-appearing lesions throughout thepancreatic parenchyma, for example a 0.8 cm cystic lesion along the distalbody of the pancreas likely to reflect an IPMN. Adrenal Glands: No nodules. Kidneys/Ureters: No stones or hydronephrosis. Bowel: No focal inflammatory change or evidence of obstruction within thelimitations of extensive motion artifact. Colonic diverticulosis. Appendixnot visualized, no secondary signs of appendicitis. Moderate hiatalhernia. Peritoneum/Retroperitoneum: No pneumoperitoneum or free fluid. Lymph Nodes: No enlarged lymphadenopathy. Pelvic Organs/Bladder: Bladder is unremarkable for the degree ofdistention with layering dependent contrast from urinary excretion. Vessels: Aortic atherosclerosis. No aortic aneurysm. Bones/Soft Tissues: Degenerative changes of the spine. IMPRESSION: Limited evaluation secondary to extensive motion artifact. Within examlimitations, no bowel obstruction, fluid collection, enterocolitis, orother CT-evident intra-abdominal source of infection/inflammation. Willie Samaniego MD IMG CT ABD/PELVIS Final Result * (ABNORMAL) PT-INR (06/17/2025 7:27 PM EST) [facility] PT 14.6(H) 10.0 - 13.0 sec 06/17/2025 7:46 PM [facility] INR 1.2(H) 0.9 - 1.1 06/17/2025 7:46 PM [facility] Comment:Therapeutic Range 2. 0 - 3.5 Blood (Blood) Venipuncture / Unknown 06/17/2025 7:27 PM EST 06/17/2025 7:34 PM EST Willie Samaniego MD LAB BLOOD BKR ORDERABLES Final Result Performing Organization Address City/[facility]/ZIP Co de Phone Number [address] [address] * (ABNORMAL) Lactate, Whole Blood (06/17/2025 7:21 PM EST) [facility] Lactate, Whole Blood 2.4(H) 0.5 - 2.0 mmol/L 06/17/2025 7:37 PM EST [facility] Blood (Blood, Venous) Venipuncture / Unknown 06/17/2025 7:21 PM EST 06/17/2025 7:34 PM EST Willie Samaniego MD LAB BLOOD BKR ORDERABLES Final Result [address] [address] * CBC and Differential (06/17/2025 7:21 PM EST) [facility] WBC 9.52 4.00 - 11.00 K/uL 06/17/2025 7:40 PM [facility] RBC 4.22 4.00 - 5.20 M/uL 06/17/2025 7:40 PM [facility] Hemoglobin 12.8 12.0 - 16.0 g/dL 06/17/2025 7:40 PM [facility] Hematocrit 37.5 36.0 - 46.0 % 06/17/2025 7:40 PM [facility] MCV 88.9 80.0 - 100.0 fL 06/17/2025 7:40 PM [facility] MCH 30.3 27.0 - 31.0 pg 06/17/2025 7:40 PM [facility] MCHC 34.1 32.0 - 36.0 g/dL 06/17/2025 7:40 PM [facility] MPV 9.2 8.4 - 12.0 fL 06/17/2025 7:40 PM [facility] RDW-CV 12.9 11.5 - 14.5 % 06/17/2025 7:40 PM [facility] PLT 356 150 - 450 K/uL 06/17/2025 7:40 PM [facility] Neutrophils 49.3 % 06/17/2025 7:40 PM [facility] Lymphocytes 38.0 % 06/17/2025 7:40 PM [facility] Monocytes 10.4 % 06/17/2025 7:40 PM [facility] Eosinophils 1.6 % 06/17/2025 7:40 PM [facility] Basophils 0.6 % 06/17/2025 7:40 PM [facility] Imm Grans 0.1 % 06/17/2025 7:40 PM [facility] NRBC 0.0 <=0.0 /100 WBCs 06/17/2025 7:40 PM [facility] Absolute Neutrophils 4.69 1.92 - 7.60 K/uL 06/17/2025 7:40 PM [facility] Absolute Lymphocytes 3.62 0.72 - 4.10 K/uL 06/17/2025 7:40 PM [facility] Absolute Monocytes 0.99 0.16 - 1.10 K/uL 06/17/2025 7:40 PM [facility] Absolute Eosinophils 0.15 0.00 - 0.50 K/uL 06/17/2025 7:40 PM [facility] Absolute Basophils 0.06 0.00 - 0.15 K/uL 06/17/2025 7:40 PM [facility] Absolute Imm Grans 0.01 0.00 - 0.09 K/uL 06/17/2025 7:40 PM [facility] Absolute NRBC 0.00 <=0.00 K cells/uL 06/17/2025 7:40 PM [facility] Absolute Neutrophils 4.69 1.92 - 7.60 K/uL 06/17/2025 7:40 PM [facility] Comment:Automated cell count . Manual ANC may differ if performed. Diff Type Auto 06/17/2025 7:40 PM [facility] Blood (Blood) Venipuncture / Unknown 06/17/2025 7:21 PM EST 06/17/2025 7:34 PM EST us Willie Samaniego MD LAB BLOOD BKR ORDERABLES Final Result [address] [address] * (ABNORMAL) Hepatic Panel (LFTs) (06/17/2025 7:21 PM EST) AST 20 <33 U/L 06/17/2025 8:03 PM [facility] ALT 16 <34 U/L 06/17/2025 8:03 PM [facility] Alkaline Phosphatase 75 40 - 130 U/L 06/17/2025 8:03 PM [facility] Bilirubin, Total 0.4 0.0 - 1.2 mg/dL 06/17/2025 8:03 PM [facility] Bilirubin, Direct 0.2 0.0 - 0.3 mg/dL 06/17/2025 8:03 PM [facility] Total Protein 6.1(L) 6.4 - 8.3 g/dL 06/17/2025 8:03 PM [facility] Albumin 3.8 3.5 - 5.2 g/dL 06/17/2025 8:03 PM [facility] Globulin 2.3 1.9 - 4.1 g/dL 06/17/2025 8:03 PM [facility] Blood (Blood) Venipuncture / Unknown 06/17/2025 7:21 PM EST 06/17/2025 7:34 PM EST us Willie Samaniego MD LAB BLOOD BKR ORDERABLES Final Result Performing Organization Address City/[facility]/ZIP Co de Phone Number [address] [address] * NT-proBNP (06/17/2025 7:21 PM EST) NT-ProBNP 482 0 - 1,800 pg/mL 06/17/2025 11:47 PM [facility] Comment: Age <50 years: 0-450 pg/ml Age 50-75 years: 0-900 pg/ml Age >75 years: 0-1800 pg/ml A NT-proBNP <300 pg/ml effectively rules out acute congestive heart failure, with 99% negative predictive value. NT-proBNP cutoffs were developed for the diagnosis of heart failure. Marked elevations in NT-proBNP levels may be observed in states other than left ventricular congestive heart failure. Falsely low NT-proBNP in congestive heart failure patients may be observed with increasing body-mass index. Blood (Blood) Venipuncture / Unknown 06/17/2025 7:21 PM EST 06/17/2025 7:34 PM EST us Missy Payton MD LAB BLOOD BKR ORDERABLES Fin al Result Performing Organization Address City/[facility]/ZIP Co de Phone Number [address] [address] * Magnesium (06/17/2025 7:21 PM EST) Magnesium 1.8 1.7 - 2.6 mg/dL 06/17/2025 8:03 PM [facility] Blood (Blood) Venipuncture / Unknown 06/17/2025 7:21 PM EST 06/17/2025 7:34 PM EST Willie Samaniego MD LAB BLOOD BKR ORDERABLES Final Result Performing Organization Address [facility] Co de Phone Number [address] [address] * Lipase (06/17/2025 7:21 PM EST) Lipase 17 13 - 60 U/L 06/17/2025 8:03 PM EST [facility] Blood (Blood) Venipuncture / Unknown 06/17/2025 7:21 PM EST 06/17/2025 7:34 PM EST Willie Samaniego MD LAB BLOOD BKR ORDERABLES Final Result Performing Organization Address [facility] Co de Phone Number [address] [address] * US BEDSIDE (06/17/2025 6:50 PM EST) Anatomical Region Laterality Modality Ultrasound Narrative 06/17/2025 6:50 PM EST Willie Samaniego MD 06/17/2025 10:44 PM Bedside Ultrasound Date/Time: 06/17/2025 10:44 PM Performed by: Willie Samaniego MD Authorized by: Willie Samaniego MD Exam Type: Cardiac Transthoracic Echocardiogram and Aorta Cardiac Transthoracic Echocardiogram Exam Findings & Impression: Indications: patient with chest pain Views: parasternal long Overall Impression: indeterminate Aorta Exam Findings & Impression: Indications: patient with upper abdominal pain Overall Impression: indeterminate Images: Images Saved: Yes Accession Number: [id number] Willie Samaniego MD IMG POINT OF CARE EXAMS Edited Result - Final * Pulmonary Function Test Reason for Exam: Dyspnea/Shortness of Breath; Type of PFT Test: Spirometry with bronchodilator, DLCO, Lung Volumes; Performing Location[place] [facility] (05/22/2025 2:41 PM EDT) FEV1 1.68 liters FVC 2.36 liters FEV1/FVC 71 % TLC 5.75 liters DLCO 17.60 ml/mmHg sec Anatomical Region Laterality Modality Other Impressions 05/22/2025 2:41 PM EDT PULMONARY FUNCTION STUDIES Full pulmonary function studies were performed on this 84 y.o. year-old female for evaluation of exertional dyspnea. Review of the medical record reveals that the patient is a never smoker. Prior pulmonary function studies from 01/19/2024 are available for comparison. SPIROMETRY: The FEV1 is normal at 1.68 L or 91% predicted. The FVC is normal at 2.36 L or 96% predicted. The FEV1/FVC ratio is normal at 71%. After the administration of a bronchodilator agent, there is no technically significant change. FLOW-VOLUME LOOPS: Evaluation of the flow-volume loops reveals normal morphology of both the inspiratory and expiratory limbs with no significant difference when comparing the tracings performed pre- and post-bronchodilator. LUNG VOLUME MEASUREMENTS BY PLETHYSMOGRAPHY: The total lung capacity is normal at 5.75 L or 118% predicted. The RV/TLC ratio is normal at 54%. DIFFUSION CAPACITY: The diffusion capacity is normal at 17.6 mL/mmHg sec or 98% predicted. COMPARISON TO PRIOR STUDIES: When comparing to prior studies, the diffusion capacity impairment has normalized. Otherwise, there has been no significant change. Resting oxygen saturation is 98% on room air. IMPRESSION: Normal pulmonary function studies. Technical Note: As of 06/12/2024, the [facility] Pulmonary Function Testing (PFT) Laboratory transitioned from using race-specific to using race-neutral equations for determining lung function predicted values for all persons. Due to this change some individuals previously classified as either normal or abnormal may now change from one to the other category without a true change in lung function. Such changes, as well as changes in severity classification, should be considered broadly and in their clinical context. Absolute values of lung function are unaffected. For further questions please contact the interpreting physician or [employer]FT [employer] systems laboratory director. For further discussion of this issue please see [facility] 2022;[phone]. Please Note: Not all PFT labs within, or outside of, our system will be transitioning to new reference equations at the same time. For this reason, please pay close attention to absolute values when comparing results done at different testing locations within or outside of our system. us Bossman Weems MD PFT ORDERABLES Final R esult * BI US BREAST LIMITED (LEFT) (05/10/2025 12:35 PM EDT) Anatomical Region Laterality Modality Breast Left, Breast Bilateral Left Ul trasound 05/10/2025 12:0 2 PM EDT Impressions 05/10/2025 12:54 PM EDT 1. No mammographic or targeted sonographic abnormalities to explain the patient's spontaneous clear left nipple discharge. An breast surgery consultation and breast MRI with contrast is recommended for further evaluation. 2. No mammographic evidence of malignancy in either breast. BI-RADS 1 NEGATIVE Results and recommendations were communicated to the patient at time of examination. Narrative 05/10/2025 12:54 PM EDT BI MAMMOGRAM DIAGNOSTIC WITH TOMOSYNTHESIS WITH CAD (BILATERAL), BI US BREAST LIMITED (LEFT) Additional patient information: Annual mammogram and patient reports spontaneous left clear nipple discharge. COMPARISON: Comparison is made with relevant prior imaging. Breast composition: There are scattered areas of fibroglandular density. FINDINGS: Right Mammogram: No abnormal masses, suspicious calcifications, or other significant findings are identified mammographically in the right breast. Left Mammogram: A focal asymmetry in the upper outer quadrant at anterior depth resolves into a mixture of benign fatty and fibroglandular tissue on additional imaging. An asymmetry in the outer breast at middle depth resolves into a mixture of benign fatty and fibroglandular tissue on additional imaging. No abnormal masses, suspicious calcifications, or other significant findings are identified mammographically in the left breast. Left Ultrasound: Targeted ultrasound was performed of the subareolar breast and area of mammographic concern. Benign fibroglandular tissue is seen in the subareolar breast and upper outer quadrant. No suspicious sonographic abnormalities are visualized. us [facility] IMG US BREAST Final Resul t * BI MAMMOGRAM DIAGNOSTIC WITH TOMOSYNTHESIS WITH CAD (BILATERAL) (05/10/2025 12:10 PM EDT) Anatomical Region Laterality Modality Breast Left, Breast Right, Breast Bilateral Bila teral Mammography 05/10/2025 12:0 2 PM EDT Impressions 05/10/2025 12:54 PM EDT 1. No mammographic or targeted sonographic abnormalities to explain the patient's spontaneous clear left nipple discharge. An breast surgery consultation and breast MRI with contrast is recommended for further evaluation. 2. No mammographic evidence of malignancy in either breast. BI-RADS 1 NEGATIVE Results and recommendations were communicated to the patient at time of examination. Narrative 05/10/2025 12:54 PM EDT BI MAMMOGRAM DIAGNOSTIC WITH TOMOSYNTHESIS WITH CAD (BILATERAL), BI US BREAST LIMITED (LEFT) Additional patient information: Annual mammogram and patient reports spontaneous left clear nipple discharge. COMPARISON: Comparison is made with relevant prior imaging. Breast composition: There are scattered areas of fibroglandular density. FINDINGS: Right Mammogram: No abnormal masses, suspicious calcifications, or other significant findings are identified mammographically in the right breast. Left Mammogram: A focal asymmetry in the upper outer quadrant at anterior depth resolves into a mixture of benign fatty and fibroglandular tissue on additional imaging. An asymmetry in the outer breast at middle depth resolves into a mixture of benign fatty and fibroglandular tissue on additional imaging. No abnormal masses, suspicious calcifications, or other significant findings are identified mammographically in the left breast. Left Ultrasound: Targeted ultrasound was performed of the subareolar breast and area of mammographic concern. Benign fibroglandular tissue is seen in the subareolar breast and upper outer quadrant. No suspicious sonographic abnormalities are visualized. Procedure Note Aftab Kruger MD - 05/10/2025 BI MAMMOGRAM DIAGNOSTIC WITH TOMOSYNTHESIS WITH CAD (BILATERAL), BI USBREAST LIMITED (LEFT) Additional patient information: Annual mammogram and patient reportsspontaneous left clear nipple discharge. COMPARISON: Comparison is made with relevant prior imaging. Breast composition: There are scattered areas of fibroglandular density. FINDINGS: Right Mammogram: No abnormal masses, suspicious calcifications, or other significantfindings are identified mammographically in the right breast. Left Mammogram: A focal asymmetry in the upper outer quadrant at anterior depth resolvesinto a mixture of benign fatty and fibroglandular tissue on additionalimaging. An asymmetry in the outer breast at middle depth resolves into a mixtureof benign fatty and fibroglandular tissue on additional imaging. No abnormal masses, suspicious calcifications, or other significantfindings are identified mammographically in the left breast. Left Ultrasound: Targeted ultrasound was performed of the subareolarbreast and area of mammographic concern. Benign fibroglandular tissue isseen in the subareolar breast and upper outer quadrant. No suspicioussonographic abnormalities are visualized. IMPRESSION: 1. No mammographic or targeted sonographic abnormalities to explain thepatient's spontaneous clear left nipple discharge. An breast surgeryconsultation and breast MRI with contrast is recommended for furtherevaluation. 2. No mammographic evidence of malignancy in either breast. BI-RADS 1 NEGATIVE Results and recommendations were communicated to the patient at time ofexamination. us [facility] IMG MG EXAMS Final Resul t * CT CHEST (HIGH RESOLUTION) WITHOUT CONTRAST (04/25/2025 1:18 PM EDT) Anatomical Region Laterality Modality Chest Computed Tomogra phy 04/26/2025 5:52 PM EDT Impressions 04/26/2025 6:08 PM EDT 1. Decrease in mild groundglass opacity in the dependent right lower lung most likely representing decreasing atelectasis or a decrease in infectious or inflammatory process including recurrent aspiration. 2. Unchanged scattered pulmonary nodules measuring up to 5 mm. No new or enlarging pulmonary nodules. RECOMMENDATION: No routine follow-up required for a low-risk patient. Narrative 04/26/2025 6:[address] CHEST (HIGH RESOLUTION) WITHOUT CONTRAST Referring clinician's provided indication for this examination in Epic: * Interstitial lung disease TECHNIQUE: Multidetector CT of the chest was performed without intravenous contrast using tailored dose modulation techniques. Thin inspiratory, expiratory and inspiratory prone images were obtained as part of a high-resolution chest CT protocol. COMPARISON: CT CHEST (HIGH RESOLUTION) WITHOUT CONTRAST FINDINGS: Devices/Tubes/Lines: None. Lungs: The central airways are patent. There is a small amount of linear atelectasis in the lower lungs. Decrease in mild amount of groundglass opacity in the dependent right lower lobe. Unchanged scattered pulmonary nodules measuring up to 5 mm, for example in the juxtapleural right lower lobe, 4:60. Unchanged 6 mm thin-walled cyst in the left lower lobe, 4:81. No new or enlarging pulmonary nodules. No new reticular opacities are groundglass opacities. Pleura: Normal. No pleural effusion or pneumothorax. Mediastinum: No thyroid nodules. Heart and pericardium are normal. Moderate hiatal hernia. Mild amount of coronary calcifications. Lymph Nodes: Normal. No enlarged supraclavicular, axillary, mediastinal, or hilar lymph nodes. Upper Abdomen: Cholecystectomy. Chest Wall: Normal. No chest wall mass. Bones: Normal. No suspicious lytic or blastic lesions. Procedure Note Trevon Betancourt MD - 04/26/2025 CT CHEST (HIGH RESOLUTION) WITHOUT CONTRAST Referring clinician's provided indication for this examination in Epic: *Interstitial lung disease TECHNIQUE: Multidetector CT of the chest was performed without intravenouscontrast using tailored dose modulation techniques. Thin inspiratory,expiratory and inspiratory prone images were obtained as part of ahigh-resolution chest CT protocol. COMPARISON: CT CHEST (HIGH RESOLUTION) WITHOUT CONTRAST FINDINGS: Devices/Tubes/Lines: None. Lungs: The central airways are patent. There is a small amount of linearatelectasis in the lower lungs. Decrease in mild amount of groundglass opacity in the dependent rightlower lobe. Unchanged scattered pulmonary nodules measuring up to 5 mm, for example inthe juxtapleural right lower lobe, 4:60. Unchanged 6 mm thin-walled cystin the left lower lobe, 4:81. No new or enlarging pulmonary nodules. No new reticular opacities are groundglass opacities. Pleura: Normal. No pleural effusion or pneumothorax. Mediastinum: No thyroid nodules. Heart and pericardium are normal.Moderate hiatal hernia. Mild amount of coronary calcifications. Lymph Nodes: Normal. No enlarged supraclavicular, axillary, mediastinal,or hilar lymph nodes. Upper Abdomen: Cholecystectomy. Chest Wall: Normal. No chest wall mass. Bones: Normal. No suspicious lytic or blastic lesions. IMPRESSION: 1. Decrease in mild groundglass opacity in the dependent right lower lungmost likely representing decreasing atelectasis or a decrease ininfectious or inflammatory process including recurrent aspiration. 2. Unchanged scattered pulmonary nodules measuring up to 5 mm. No new orenlarging pulmonary nodules. RECOMMENDATION: No routine follow-up required for a low-risk patient. us Bossman Weems MD IMG CT CHEST Final R esult * TTE COMPREHENSIVE (04/25/2025 1:09 PM EDT) Body Surface Area 1.70 m2 Height 163 cm Weight 65 kg Systolic BP 161 mmHg Diastolic BP 69 mmHg Aortic Valve Regurgitation Pressure Half Time 536 ms Aortic Valve Peak Velocity 1.4 m/s Aortic Valve Peak Gradient 8 mmHg Aortic Valve Mean Gradient 4 mmHg Aortic Valve Time Velocity Integral 298.0 mm Aortic Sinus Diameter 32 <40 mm Ascending Aorta Diameter 37 <36 mm Inferior Vena Cava Diameter 13 <21 mm Interventricular Septum Thickness 11 6 - 11 mm Left Ventricle Internal Diameter End Diastole 41 37 - 52 mm Left Ventricle Internal Diameter End Systole 26 <35 mm Left Ventricular Outflow Tract Diameter 23.0 mm LVOT VTI REST 263.0 mm Left Ventricular Outflow Tract Velocity 1.2 m/s Left Ventricular Outflow Tract Gradient at Rest 6 mmHg Left Ventricular Posterior Wall Thickness 11 6 - 11 mm Left Ventricle Ea Lateral Wave Speed 6.3 cm/s Left Ventricle Ea Septal Wave Speed 6.4 cm/s Ejection Fraction 65 50 - 75 Percent Left Ventricle A Wave Speed 127.0 cm/s Left Ventricle E Wave Speed 77.7 cm/s Pulmonary Valve Peak Velocity 0.9 m/s Pulmonary Valve Peak Gradient 3 mmHg Right Ventricle Basal Diameter 33 25 - 41 mm Tricuspid Valve Peak Velocity 2.5 m/s Raw LV EF% 60 % MV E/E' Tissue Velocity Lateral 12.33 Relative Wall Thickness 0.54 0.22 - 0.42 Left Ventricle indexed to BSA 89.0 g/m2 MV E/A ratio 0.6 MV E/e' septal 12.14 Left Ventricle E/e' Average 12.2 Aortic Valve Prosthetic Peak Gradient 8 mmHg Aortic Valve Prosthetic Mean Gradient 4 mmHg Aortic Valve Sinus Index by BSA 19 mm/m2 Aorta Sinus Index by Height 1.96 cm/m Aorta Sinus CSA index by Height 4.93 cm2/m Ascending Aorta Index 22 mm/m2 Asc Aorta CSA Index by Height 6.59 cm2/m Right Ventricle to Right Atrium Pressure Gradient 25 mmHg Right Ventricle Peak Systolic Pressure (Assuming RAP 10) 35 mmHg MGB CV ECHO TV RVSP (ASSUMING RAP OF 5) 30 mmHg RVSP (Exclusive of RAP) 25 mmHg Pulmonic Valve Prosthetic Peak Gradient 3 mmHg MGB CV AV DIMENSIONLESS INDEX (PEAK) - STRESS ECHO DOBUT - REST 0.86 Ascending Aorta Index 22 mm Aortic Sinus Index 19 mm Ascending Aorta Diameter 22 mm Aortic Valve Sinus Index 1 19 19 - 27 mm AO ASC DIAM BSA INDEX 21.76 Echo E/Ea 12.14 Left Atrial Volume Index 21 16 - 34 mL/m2 Right Ventricle Peak Systolic Pressure 28 mmHg GLS 17.4 % Right Ventricle TAPSE 24 >=17 mm Right Ventricle Pulse Doppler S Wave 15.0 >=9.5 cm/s Left Atrial Volume 35 mL Left Atrial Volume Index by Height 21 mL/m Right Atrium Pressure Estimated 3 mmHg Anatomical Region Laterality Modality Heart Ultrasound Narrative 04/27/2025 12:28 PM EDT Images from the original result were not included. Mild concentric LVH. LV cavity size is normal. LV systolic function is normal with EF 60 to 65%. There are no regional wall motion abnormalities. Normal diastolic function. Normal RV size and function. Global longitudinal strain is normal at -17.4%. The aortic valve is trileaflet. There is mild aortic regurgitation. There is no aortic stenosis. Comparison is made to prior study report from April 2024. The mild aortic regurgitation is new. Left Ventricle The left ventricle is normal in size. There is mild concentric hypertrophy. There is normal left ventricular systolic function. The LV ejection fraction is 65% (calculated via the single dimension method). Average global longitudinal strain (GLS) is -17.4%. There are no wall motion abnormalities. LV diastolic function appears within normal limits for age. The E/A ratio is 0.6. The e' septal wave velocity is 6.4 cm/s. The e' lateral wave velocity is 6.3 cm/s. The average E/e' ratio is 12.2. Right Ventricle The right ventricle is normal in size. The RV basal dimension is 33 mm. There is normal right ventricular systolic function. TAPSE is 24 mm. RV S' wave is 15.0 cm/s. Left Atrium The left atrium is normal in size. The left atrial volume index by BSA is 21 mL/m2. Right Atrium The right atrium is normal in size. The IVC is normal in size with normal inspiratory collapse. The IVC diameter is 13 mm. Mitral Valve The mitral valve appears normal. There is no mitral stenosis. There is trace mitral regurgitation. Tricuspid Valve The tricuspid valve appears normal. There is no tricuspid stenosis. There is trace tricuspid regurgitation. The RV systolic pressure was calculated at 28 mmHg (using TR peak velocity of 2.5 m/s and assuming an RA pressure of 3 mmHg). Aortic Valve The aortic valve is tricuspid. There is no aortic stenosis. There is mild aortic regurgitation. The ascending aortic diameter is 37 mm. Pulmonic Valve The pulmonic valve appears normal. There is no pulmonic stenosis. There is trace pulmonic regurgitation. Pericardium The pericardium appears normal. General Findings The image quality was adequate. Technique(s) used in the evaluation: Color flow Doppler and Spectral Doppler. The predominant rhythm during the study was sinus. Comparison Findings Compared to prior TTE on 04/21/2024, IAS/IVS The interatrial septum appears normal. Bossman Weems MD CV ECHO ORDERABLES Rahel l Result from Last 3 Months Insurance MEDICARE PART A & B [facility] MEDICARE SUPPLEMENT MEDICARE PART A & B MEDICARE SUPPLEMENT MEDICARE PART A & B Member Subscriber Plan / Payer (Ef fective 2004-Present) Name:Lisette Stovall Member ID:[id number] Relation to Subscriber:Self Name:Lisette Stovall Subscriber ID:[id number] Payer ID:[id number] Group ID:Not on file Type:Medicare Address: [address] [employer] [address] MEDICARE SUPPLEMENT MEDICARE PART A & B MEDICARE SUPPLEMENT MEDICARE PART A & B Member Subscriber Plan / Payer ( fective 2004-Present) Name:Lisette Stovall Member ID:[id number] Relation to Subscriber:Self Name:Lisette Stovall Subscriber ID:[id number] Payer ID:[id number] Group ID:Not on file Type:Medicare Address: [employer] [address] MEDICARE SUPPLEMENT MEDICARE PART A & B MEDICARE SUPPLEMENT MEDICARE PART A & B [facility] MEDICARE SUPPLEMENT MEDICARE PART A & B MEDICARE SUPPLEMENT MEDICARE PART A & B [facility] MEDICARE SUPPLEMENT Advance Directives For more information, please contact: [phone] (9AM - 5PM [facility], Tuesday-Tuesday) Documents on File Type Date Recorded Patient Deputy County Attorney Expl anation Power of Barrel [employer] Proxy 07/24/2024 2:48 PM * Full Code (Latest Code Status on File) Date Activated Date Inactivated Comments 06/18/2025 12:26 AM Question Answer Comments Code Status Confirmed With: Patient Code Status Communicated To: Inpatient Attending * Full Code Date Activated Date Inactivated Comments 07/23/2024 3:38 AM 06/18/2025 12:26 AM Question Answer Comments Code Status Confirmed With: Patient * Full Code Date Activated Date Inactivated Comments 04/20/2024 6:54 PM 07/23/2024 3:38 AM Question Answer Comments Code Status Confirmed With: Patient * Full Code Date Activated Date Inactivated Comments 04/15/2024 4:34 AM 04/20/2024 6:54 PM Question Answer Comments Code Status Confirmed With: PatientFamily * Full Code Date Activated Date Inactivated Comments 01/29/2024 6:14 PM 04/15/2024 4:34 AM Question Answer Comments Code Status Confirmed With: PatientFamily Care Teams Wrapper Sorter Relationship Specialty Start Date End Date Jv Tavera DO [address] [place] [address] [email or web address] PCP - General Internal Medicine 03/26/25 Additional Source Comments The information contained in this document represents components of the legal health record. It is not the complete legal health record.[facility]
--- OUTSIDE RECORDS SUMMARY | 2025-07-15 21:20 | XMS_ITS | Encounter Summary ---
Author Organization [facility] Address [address] [place] [address] Phone Care Team Providers Care Intervention Analyst Name Role Phone Jv Tavera DO Primary Care Provider Jv Tavera DO Primary Care Provider [phone] Reason for Referral * Outpatient Procedure - Closed Specialty Diagnoses / Procedures Referred By Rylie [email or web address] Referred To Contact Radiology Diagnoses Edema, unspecified type Procedures US Lower Extremity Veins Duplex (Right) Jv Tavera DO Phone: tel: fax: mailto:[email or web address] Referral ID Status Reason Start Date Expiration Date Visits Re quested Visits Authorized [id number] Closed 06/18/2024 06/18/2025 1 1 Encounter Details Date Type Department Care Team (Late st Contact Info) Description 06/18/2024 Transcribe Orders Virtual Department [address] [place] [address] Jv Tavera DO [address] [facility] [place] [address] [email or web address] Edema, unspecified type (Primary Dx) Social History Tobacco Use Types [...] 07/16/2025 10:45 AM EST Appointment [facility] [address] [place] [phone] Esther Bryant, OT [address] [place] [address] 07/17/2025 4:00 AM EST Appointment [facility] [address] [place] [phone] O'Malika Cedillo RN [address] [place] [address] 07/18/2025 10:45 AM EST Appointment [facility] [address] [place] [phone] Esther Bryant, OT [address] [place] [address] 07/22/2025 1:00 AM EST Appointment [facility] [address] [place] [phone] Esther Bryant, OT [address] [place] [address] 07/23/2025 12:30 AM EST Appointment [facility] [address] [place] [phone] O'Malika Cedillo, PEARL [address] [place] [address] 07/23/2025 1:00 AM EST Appointment [facility] [address] [place] [phone] Esther Bryant, OT [address] [place] [address] 07/24/2025 1:30 PM EST Office Visit [facility] [address] [place] [address] Karina Pedraza, JOSÉ [address] [address] 07/31/2025 3:00 AM EST Appointment [facility] [address] [place] [phone] O'Nguyen, Malika Xiao RN [address] [place] [address] 08/07/2025 1:00 AM EST Appointment [facility] [address] [place] [phone] O'Nguyen, Malika Xiao RN [address] [place] [address] 08/15/2025 Appointment [facility] [address] [place] [phone] O'Nguyen, Malika Xiao RN [address] [place] [address] 08/21/2025 2:00 PM EST Office Visit [facility] [address] [place] [address] [address]rd Floor, [address] [place] [address] Yvan Bates MD [address] [place] [address], [address] [address] 09/04/2025 1:00 PM EST Office Visit [facility] [address] [place] [address] [phone] Coco Smith MD [address] [place] [address] [facility] [place], [place] [phone] 11/01/2025 1:30 PM EDT Telemedicine [facility] [address]nd Floor, [address] [place] [address] Bossman Weems MD [address] [facility] [address] [place] [address] [email or web address] 12/10/2025 2:00 PM EDT Office Visit [facility] [address] [place] [address] Sarah Balderas MD [address] [facility], 2nd [place] [address] [email or web address] documented as of this encounter Results * US Lower Extremity Veins Duplex (Right) (06/25/2024 2:50 PM EST) Anatomical Region Laterality Modality Hip Right, Thigh Right, Knee Right, Leg Right, Ankle Right, Foot Right Ultrasound 06/25/2024 3:01 PM EST Impressions 06/25/2024 3:11 PM EST * No evidence of deep or superficial venous thrombosis in the visualized veins of the right lower extremity. Narrative 06/25/2024 3:11 PM EST US LOWER EXTREMITY VEINS DUPLEX (RIGHT) Referring clinician's provided indication for this examination in Epic: Edema; edema TECHNIQUE: Lower extremity venous ultrasound with color and spectral Doppler. COMPARISON: None FINDINGS: Exam Quality: Technically adequate exam demonstrates: Right lower extremity Common femoral vein: Normal compressibility and flow characteristics. Femoral vein: Normal compressibility and flow characteristics. Proximal profunda femoral vein: Normal compressibility. Popliteal vein: Normal compressibility and flow characteristics. Posterior tibial veins: Normal compressibility. Peroneal veins: Normal compressibility. Great saphenous vein: Normal compressibility at the saphenofemoral junction. Procedure Note Jaun Dominguez MBBS - 06/25/2024 US LOWER EXTREMITY VEINS DUPLEX (RIGHT) Referring clinician's provided indication for this examination in Epic:Edema; edema TECHNIQUE: Lower extremity venous ultrasound with color and spectralDoppler. COMPARISON: None FINDINGS: Exam Quality: Technically adequate exam demonstrates: Right lower extremity Common femoral vein: Normal compressibility and flow characteristics. Femoral vein: Normal compressibility and flow characteristics. Proximal profunda femoral vein: Normal compressibility. Popliteal vein: Normal compressibility and flow characteristics. Posterior tibial veins: Normal compressibility. Peroneal veins: Normal compressibility. Great saphenous vein: Normal compressibility at the saphenofemoraljunction. IMPRESSION: * No evidence of deep or superficial venous thrombosis in the visualizedveins of the right lower extremity. us Jv Tavera DO CV US VASCULAR Final Result documented in this encounter Visit Diagnoses Diagnosis Edema, unspecified type- Primary Edema, unspecified type documented in this encounter Additional Health Concerns Infection Onset Date Last Indicated Resolved Time CoV-Risk 07/20/2024 07/20/2024 07/23/2024 9:54 AM EST COVID-19 Comment:Symptom onset = 07/20, 10 days, not immunocompromised 07/20/2024 07/23/2024 08/02/2024 1 2:18 PM EST documented as of this encounter Care Teams Intervention Analyst Relationship Specialty Start Date End Date Jv Tavera DO [email or web address] PCP - General Internal Medicine 06/14/17 03/25/25 Jv Tavera DO [address] [place] [phone] PCP - General Internal Medicine 03/26/25 documented as of this encounter Additional Source Comments The information contained in this document represents components of the legal health record. It is not the complete legal health record.[facility]
--- OUTSIDE RECORDS SUMMARY | 2025-07-15 21:20 | XMS_ITS | Encounter Summary ---
Author Organization [facility] Address [address] [facility] [address] [place] [address] Phone Care Team Providers Care Grain Receiver Name Role Phone Tyshawncuate Jv Rivera DO Primary Care Provider [phone] Jv Tavera DO Primary Care Provider [phone] Encounter Details Date Type Department Care Team (Late st Contact Info) Description 01/19/2021 Transcribe Orders Virtual Department [address] [place] [address] Jv Tavera DO [address] [facility] [address] [place], [place] [id number] [email or web address] Dysphagia, unspecified type (Primary Dx) Social History Tobacco [...] Appointment [facility] [address] [place] [phone] Esther Bryant, OT [address] [place] [address] [email or web address] 07/17/2025 4:00 AM EST Appointment [facility] [address] [place] [phone] O'Malika Cedillo RN [address] [place] [address] 07/18/2025 10:45 AM EST Appointment [facility] [address] [place] [phone] Esther Bryant, OT [address] [place] [address] [email or web address] 07/22/2025 1:00 AM EST Appointment [facility] [address] [place] [phone] Esther Bryant, OT [address] [place] [address] [email or web address] 07/23/2025 12:30 AM EST Appointment [facility] [address] [place] [phone] OMalika Blackman, PEARL [address] [place] [address] [email or web address] 07/23/2025 1:00 AM EST Appointment [facility] [address] [place] [phone] Esther Bryant, OT [address] [place] [address] [email or web address] 07/24/2025 1:30 PM EST Office Visit [facility] [address] [place] [address] Karina Pedraza, JOSÉ [address] [address] 07/31/2025 3:00 AM EST Appointment [facility] [address] [place] [address] O'Nguyen, Malika Xiao RN [address] [place] [address] 08/07/2025 1:00 AM EST Appointment [facility] [address] [place] [address] O'Nguyen, Malika Xiao RN [address] [place] [address] 08/15/2025 Appointment [facility] [address] [place] [address] O'Nguyen, Malika Xiao RN [address] [place] [address] 08/21/2025 2:00 PM EST Office Visit [facility] [address] [place] [address] 3rd Floor, [address] [place] [address] Yvan Bates MD [address] [place] [address] 09/04/2025 1:00 PM EST Office Visit [facility]ics & Sports Medicine [address] [place] [address] Coco Smith MD [address] [place] [address] Orthopedics & [facility] [place] [address] 11/01/2025 1:30 PM EDT Telemedicine [facility] [address] [place] [address], 2nd Floor, [address] [place] [address] Bosmsan Weems MD [address] [place] [address] [address] [place] [address] [email or web address] 12/10/2025 2:00 PM EDT Office Visit [facility] General Surgical Care [address] [place] [address] Sarah Balderas MD 15 [facility], 2nd [place] [address] documented as of this encounter Results * FL BARIUM SWALLOW ESOPHAGRAM SINGLE CONTRAST (02/23/2021 8:50 AM EDT) Anatomical Region Laterality Modality Chest Radio Fluoroscop y 02/23/2021 9:40 AM EDT Impressions 02/23/2021 9:49 AM EDT Penetration with subsequent aspiration of small volumes when swallowing barium liquid. Follow-up full modified barium swallow is warranted. No esophageal mass, ulcer, or marked dysmotility. No evidence for achalasia. FLUOROSCOPY TIME: 2 min. 3 sec; 46 IMAGES/FRAMES 17.33 mGy DAP 275.64 Narrative 02/23/2021 9:49 AM EDT Heating Plant Superintendent view the neck demonstrates multilevel degenerative disc disease with anterolisthesis of C3 on C4. No soft tissue finding of clear concern. There was some confusion about the appropriate study to perform in this patient who thought she would have a modified barium swallow, which seems to have been suggested on noted from December 24. However, as study was not requested and there was no speech pathologist available at time of study. The alternatives of reschedule an exam or performing limited swallowing assessment and esophagram given the possibility of esophageal dysmotility and Crest syndrome were discussed with her, was decided initially to go forward with the Limited barium study today and have subsequent modified study. Barium swallow is limited by the patient's limited functional status and inability to stand for prolonged periods. Fluoroscopic observation of swallowing demonstrates undercoating of the epiglottis with initial swallow which is not fully cleared and leads to subsequent aspiration. There is some mild throat clearing since the patient senses this but does not adequately clear the barium. The study is then further modified and no double contrast study was performed. There is diminished esophageal stripping but no marked for surgery waves or marked dysmotility. No evidence of achalasia. Patient has sufficient aerophagia and diminished tone to allow for double contrast views of much of the esophagus with additional high density barium swallows. No masses are seen. There may be some minor fold thickening at the EG junction but no paulette mass or ulcer is identified. No prominent ring. Minor hiatal hernia. No reflux seen spontaneously nor both with limited provocative maneuvers. Procedure Note Glenn Woodson MD - 02/23/2021 Heating Plant Superintendent view the neck demonstrates multilevel degenerative disc disease withanterolisthesis of C3 on C4. No soft tissue finding of clear concern. There was some confusion about the appropriate study to perform in thispatient who thought she would have a modified barium swallow, which seemsto have been suggested on noted from December 24. However, as study was notrequested and there was no speech pathologist available at time of study.The alternatives of reschedule an exam or performing limited swallowingassessment and esophagram given the possibility of esophageal dysmotilityand Crest syndrome were discussed with her, was decided initially to goforward with the Limited barium study today and have subsequent modifiedstudy. Barium swallow is limited by the patient's limited functional status andinability to stand for prolonged periods. Fluoroscopic observation ofswallowing demonstrates undercoating of the epiglottis with initialswallow which is not fully cleared and leads to subsequent aspiration.There is some mild throat clearing since the patient senses this but doesnot adequately clear the barium. The study is then further modified and no double contrast study wasperformed. There is diminished esophageal stripping but no marked forsurgery waves or marked dysmotility. No evidence of achalasia. Patient hassufficient aerophagia and diminished tone to allow for double contrastviews of much of the esophagus with additional high density bariumswallows. No masses are seen. There may be some minor fold thickening atthe EG junction but no paulette mass or ulcer is identified. No prominentring. Minor hiatal hernia. No reflux seen spontaneously nor both withlimited provocative maneuvers. IMPRESSION: Penetration with subsequent aspiration of small volumes when swallowingbarium liquid. Follow-up full modified barium swallow is warranted. Noesophageal mass, ulcer, or marked dysmotility. No evidence forachalasia. FLUOROSCOPY TIME: 2 min. 3 sec; 46 IMAGES/FRAMES 17.33 mGy DAP 275.64 Jv Tavera DO IMG FL MISC Final Result documented in this encounter Visit Diagnoses Diagnosis Dysphagia, unspecified type- Primary Dysphagia, unspecified type documented in this encounter Additional [...] documented as of this encounter Care Teams Grain Receiver Relationship Specialty Start Date End Date Jv Tavera DO [email or web address] PCP - General Internal Medicine 06/14/17 03/25/25 Jv Tavera DO [address] [place] [address] [email or web address] PCP - General Internal Medicine 03/26/25 documented as of this encounter Additional Source Comments The information contained in this document represents components of the legal health record. It is not the complete legal health record.[facility]
--- OUTSIDE RECORDS SUMMARY | 2025-07-15 21:20 | XMS_ITS | Encounter Summary ---
Author Organization [facility] Address [address] [facility] [address] [place] [address] Phone Care Team Providers Care Head Of Sales Promotion Name Role Phone Jv Tavera DO Primary Care Provider [phone] Jv Tavera DO Primary Care Provider [phone] Encounter Details Date Type Department Care Team (Late st Contact Info) Description 03/10/2021 Procedure Pass [facility] [address] [facility], 5th [place] [address] Social History Tobacco Use Types Packs/Day Years [...] [facility] 30 [place] [phone] Esther Bryant, OT [address] [place] [address] [email or web address] 07/17/2025 4:00 AM EST Appointment [facility] 30 [place] [phone] Michelle'Malika Cedillo RN [address] [place] [address] 07/18/2025 10:45 AM EST Appointment [facility] [address] [place] [phone] Esther Bryant, OT [address] [place] [address] 07/22/2025 1:00 AM EST Appointment [facility] 30 [place] [phone] Esther Bryant, OT [address] [place] [address] 07/23/2025 12:30 AM EST Appointment [facility] [address] [place] [address] O'Malika Cedillo RN [address] [place] [address] 07/23/2025 1:00 AM EST Appointment [facility] [address] [place] [address] Esther Bryant, OT [address] [place] [address] 07/24/2025 1:30 PM EST Office Visit [facility] [address] [place] [address] Karina Pedraza, STREETCAR MOTORMAN [address] [place] [address] 07/31/2025 3:00 AM EST Appointment [facility] 30 [place] [address] O'Malika Cedillo RN [address] [place] [address] 08/07/2025 1:00 AM EST Appointment [facility] 30 [place] [address] O'Nguyen, Malika Xiao RN [address] [place] [address] 08/15/2025 Appointment [facility] 30 [place] [address] O'Nguyen, Malika Xiao RN [address] [place] [address] 08/21/2025 2:00 PM EST Office Visit [facility] [address] [facility] 3rd Floor, [address] [place] [address] Yvan Bates MD [address] [facility], [address] [place] [address] 09/04/2025 1:00 PM EST Office Visit [facility] Orthopedics & Sports Medicine [address] [place] [address] Coco Smith MD [address] [place] [address] Orthopedics & Sports Medicine, [facility] [place] [address] 11/01/2025 1:30 PM EDT Telemedicine [facility] [address] [facility], 2nd Floor, [address] [place] [address] Bossman Weems MD [address] [place] [address] [address] [place] [address] [email or web address] 12/10/2025 2:00 PM EDT Office Visit [facility] General Surgical Care 15 [place] [address] Sarah Balderas MD [address] [facility], 2nd [place] [address] [email or web address] documented as of this encounter [...] documented as of this encounter Care Teams Head Of Sales Promotion Relationship Specialty Start Date End Date Jv Tavera DO PCP - General Internal Medicine 06/14/17 03/25/25 Jv Tavera DO [address] [place] [address] PCP - General Internal Medicine 03/26/25 documented as of this encounter Additional Source Comments The information contained in this document represents components of the legal health record. It is not the complete legal health record.[facility]
--- OUTSIDE RECORDS SUMMARY | 2025-07-15 21:21 | XMS_ITS | Encounter Summary ---
Author Organization [facility] Address [address] [facility] [address] [place] [address] Phone Care Team Providers Care Breeder Service Technician Name Role Phone Jv Tavera Primary Care Provider Encounter Details Date Type Department Care Team (Late st Contact Info) Description 06/17/2025 Procedure Pass [facility], Ct Scan - [address] [address] Social History Tobacco Use Types Packs/Day Years [...] Date of Assessment Author No Risk Indicated 06/17/2025 6:39 PM EST Ryan Lemon RN * [employer] Suicide Severity Rating Scale (Screener/Recent Self-Report) Question Answer Date of Assessment Author 1. Wish to be (Past 1 Month) No 025 6:39 PM Ryan Zapata RN 2. Non-Specific Active Suici alcira Thoughts (Past 1 Month) No 06/17/2025 6:39 PM EST Leif Hsu RN 6. Suicidal Behavior (Lifetime) No 6:39 PM Ryan Zapata RN documented as of this encounter Plan of Treatment Upcoming Encounters Date Type Department Care Team (Late st Contact Info) Description 07/16/2025 10:45 AM EST Appointment [facility] [address] [place] [phone] Esther Bryant, OT [address] [place] [address] [email or web address] 07/17/2025 4:00 AM EST Appointment [facility] [address] [place] [phone] O'Malika Cedillo RN 168 [place] [address] [email or web address] 07/18/2025 10:45 AM EST Appointment [facility] [address] [place] [phone] Esther Bryant, OT [address] [place] [address] [email or web address] 07/22/2025 1:00 AM EST Appointment [facility] [address] [place] [phone] Esther Bryant, OT [address] [place] [address] [email or web address] 07/23/2025 12:30 AM EST Appointment [facility] [address] [place] [phone] O'Malika Cedillo RN [address] [place] [address] [email or web address] 07/23/2025 1:00 AM EST Appointment [facility] [address] [place] [phone] Esther Bryant, OT [address] [place] [address] [email or web address] 07/24/2025 1:30 PM EST Office Visit [facility] Gastroenterology Clinic 10 [place] [address] Karina Pedraza, JOSÉ [address] [address] 07/31/2025 3:00 AM EST Appointment [facility] 30 [place] [address] O'Nguyen, Malika Xiao RN 168 [place] [address] 08/07/2025 1:00 AM EST Appointment [facility] 30 [place] [address] O'Nguyen, Malika Xiao RN [address] [place] [address] 08/15/2025 Appointment [facility] [address] [place] [address] O'Nguyen, Malika Xiao RN [address] [place] [address] 08/21/2025 2:00 PM EST Office Visit [facility] [address] [place] [address], [address] [address] Yvan Bates MD [address] [place] [address] 09/04/2025 1:00 PM EST Office Visit [facility] Medicine [address] [place] [phone] Coco Smith MD [address] [place] [address] Orthopedics & Sports Medicine, [facility]. [place], [place] [phone] 11/01/2025 1:30 PM EDT Telemedicine [facility] [address] [facility], 2nd Floor, [address] [place] [address] Bossman Weems MD 55 [facility] [address] [place] [address] [email or web address] 12/10/2025 2:00 PM EDT Office Visit [facility] General Surgical Care 15 [place] [address] Sarah Balderas MD 15 [facility], 2nd [place] [address] [email or web address] documented as of this encounter Visit Diagnoses Not on filedocumented in this encounter Care Teams Breeder Service Technician Relationship Specialty Start Date End Date Jv Tavera DO [address] [facility] [place] [address] [place] [address] [email or web address] PCP - General Internal Medicine 03/26/25 documented as of this encounter Additional Source Comments The information contained in this document represents components of the legal health record. It is not the complete legal health record.[facility]
--- OUTSIDE RECORDS SUMMARY | 2025-07-15 21:21 | XMS_ITS | Encounter Summary ---
Author Organization [facility] Address [address] [facility] [address] [place] [address] Phone Care Team Providers Care Auditing Specialist Name Role Phone Jv Tavera Primary Care Provider [phone] Encounter Details Date Type Department Care Team (Late st Contact Info) Description 06/17/2025 Procedure Pass [facility], Ct Scan - [address] [address] Social History Tobacco Use Types Packs/Day Years [...] 6:39 PM EST Ryan Lemon RN * [place] Suicide Severity Rating Scale (Screener/Recent Self-Report) Question [...] 07/16/2025 10:45 AM EST Appointment [facility] [address] [place] [phone] Esther Bryant, OT [address] [place] [address] 07/17/2025 4:00 AM EST Appointment [facility] [address] [place] [phone] O'Malika Cedillo RN [address] [place] [address] 07/18/2025 10:45 AM EST Appointment [facility] [address] [place] [phone] Esther Bryant, OT [address] [place] [address] 07/22/2025 1:00 AM EST Appointment [facility] [address] [place] [phone] Esther Bryant, OT [address] [place] [address] 07/23/2025 12:30 AM EST Appointment [facility] [address] [place] [phone] O'Malika Cedillo RN [address] [place] [address] 07/23/2025 1:00 AM EST Appointment [facility] [address] [place] [phone] Esther Bryant, OT 168 [place] [address] 07/24/2025 1:30 PM EST Office Visit [facility] Gastroenterology Clinic 10 [place] [address] Karina Pedraza, JOSÉ [address] [address] 07/31/2025 3:00 AM EST Appointment [facility] 30 [place] [address] O'Nguyen, Malika Xiao RN [address] [place] [address] 08/07/2025 1:00 AM EST Appointment [facility] 30 [place] [address] O'Nguyen, Malika Xiao RN [address] [place] [address] 08/15/2025 Appointment [facility] 30 [place] [address] O'Nguyen, Malika Xiao RN [address] [place] [address] 08/21/2025 2:00 PM EST Office Visit [facility] [address] [place] [address], [address] [address] Yvan Bates MD [address] [place] [address] 09/04/2025 1:00 PM EST Office Visit [facility] [address] [place] [address] [phone] Coco Smith MD [address] [place] [address] Orthopedics & Sports Medicine, [facility]. [place], [place] [phone] 11/01/2025 1:30 PM EDT Telemedicine [facility] [address] [facility], 2nd Floor, [address] [place] [address] Bossman Weems MD 55 [facility] [address] [place] [address] [email or web address] 12/10/2025 2:00 PM EDT Office Visit [facility] General Surgical Care 15 [place] [address] Sarah Balderas MD 15 [facility], 2nd [place] [address] [email or web address] documented as of this encounter Visit Diagnoses Not on filedocumented in this encounter Care Teams Auditing Specialist Relationship Specialty Start Date End Date Jv Tavera DO [address] [facility] [place] [address] [place] [address] [email or web address] PCP - General Internal Medicine 03/26/25 documented as of this encounter Additional Source Comments The information contained in this document represents components of the legal health record. It is not the complete legal health record.[facility]
--- OUTSIDE RECORDS SUMMARY | 2025-07-15 21:21 | XMS_ITS | Encounter Summary ---
Author Organization [facility] Address [address] [facility] [address] [place] [address] Phone Care Team Providers Care Body Shop Supervisor Name Role Phone Jv Tavera Primary Care Provider [phone] Encounter Details Date Type Department Care Team (Late st Contact Info) Description 06/17/2025 Procedure Pass [facility], Ct Scan - [address] [address] Social History Tobacco Use Types Packs/Day Years [...] 6:39 PM EST Ryan Lemon RN * [place] Suicide Severity Rating Scale (Screener/Recent Self-Report) Question [...] Appointment [facility] [address] [place] [phone] Esther Bryant, OT [address] [place] [address] 07/17/2025 4:00 AM EST Appointment [facility] [address] [place] [phone] O'Malika Cedillo RN 168 [place] [address] 07/18/2025 10:45 AM EST Appointment [facility] [address] [place] [phone] Esther Bryant, OT [address] [place] [address] 07/22/2025 1:00 AM EST Appointment [facility] [address] [place] [phone] Eshter Bryant, OT [address] [place] [address] 07/23/2025 12:30 AM EST Appointment [facility] [address] [place] [phone] O'Malika Cedillo RN 168 [place] [address] 07/23/2025 1:00 AM EST Appointment [facility] [address] [place] [phone] Esther Bryant, OT 168 [place] [address] 07/24/2025 1:30 PM EST Office Visit [facility] Gastroenterology Clinic 10 [place] [address] Karina Pedraza, JOSÉ [address] [address] 07/31/2025 3:00 AM EST Appointment [facility] 30 [place] [address] O'Nguyen, Malika Xiao RN [address] [place] [address] 08/07/2025 1:00 AM EST Appointment [facility] 30 [place] [address] O'Nguyen, Malika Xiao RN 168 [place] [address] 08/15/2025 Appointment [facility] 30 [place] [address] O'Nguyen, Malika Xiao RN [address] [place] [address] 08/21/2025 2:00 PM EST Office Visit [facility] [address] [place] [address], [address] [address] Yvan Bates MD [address] [place] [address] 09/04/2025 1:00 PM EST Office Visit [facility] [address] [place] [address] [phone] Coco Smith MD [address] [place] [address] Orthopedics & Sports Medicine, [facility]. [place], [place] [phone] 11/01/2025 1:30 PM EDT Telemedicine [facility] [address] [facility], 2nd Floor, [address] [place] [address] Bossman Weems MD 55 [facility] [address] [place] [address] [email or web address] 12/10/2025 2:00 PM EDT Office Visit [facility] General Surgical Care 15 [place] [address] Sarah Balderas MD 15 [facility], 2nd [place] [address] [email or web address] documented as of this encounter Visit Diagnoses Not on filedocumented in this encounter Care Teams Body Shop Supervisor Relationship Specialty Start Date End Date Jv Tavera DO 179 [facility] [address] [place] [address] [email or web address] PCP - General Internal Medicine 03/26/25 documented as of this encounter Additional Source Comments The information contained in this document represents components of the legal health record. It is not the complete legal health record.[facility]
--- OUTSIDE RECORDS SUMMARY | 2025-07-15 21:21 | XMS_ITS | Encounter Summary ---
Author Organization [facility] Address [address] [facility] [address] [place] [address] Phone Care Team Providers Care Warehouse Packaging Supervisor Name Role Phone Jv Tavera DO Primary Care Provider [phone] Jv Tavera DO Primary Care Provider [phone] Encounter Details Date Type Department Care Team (Late st Contact Info) Description 04/09/2024 Transcribe Orders Virtual Department [address] [place] [address] Jv Tavera DO [address] [facility] [place] [address] [place] [address] [email or web address] Other form of dyspnea (Primary Dx) Social History Tobacco Use Types [...] housing situation today? I have jose rojo 01/29/2024 How many times have you move [...] 07/16/2025 10:45 AM EST Appointment [facility] [address] [place] [address] Esther Bryant, OT [address] [place] [address] [email or web address] 07/17/2025 4:00 AM EST Appointment [facility] [address] [place] [address] O'Nguyen, Malika Xiao, PEARL [address] [place] [address] [email or web address] 07/18/2025 10:45 AM EST Appointment [facility] [address] [place] [address] Esther Bryant, OT [address] [place] [address] [email or web address] 07/22/2025 1:00 AM EST Appointment [facility] [address] [place] [address] Esther Bryant, OT [address] [place] [address] [email or web address] 07/23/2025 12:30 AM EST Appointment [facility] [address] [place] [phone] O'Malika Cedillo RN 168 [place] [address] 07/23/2025 1:00 AM EST Appointment [facility] 30 [place] [address] Esther Bryant, OT [address] [place] [address] 07/24/2025 1:30 PM EST Office Visit [facility] [address] [place] [address] Karina Pedraza, LOGISTICS ACCOUNT MANAGER [address] [address] 07/31/2025 3:00 AM EST Appointment [facility] [address] [place] [address] O'Malika Cedillo RN 168 [place] [address] 08/07/2025 1:00 AM EST Appointment [facility] [address] [place], [place] [phone] O'Malika Cedillo RN 168 [place] [address] 08/15/2025 Appointment [facility] [address] [place], [place] [phone] O'Malika Cedillo, RN [address] [place] [address] [email or web address] 08/21/2025 2:00 PM EST Office Visit [facility] [address] Floor, [address] [place] [address] Yvan Bates MD [address] [facility], [address] [place] [address] [email or web address] 09/04/2025 1:00 PM EST Office Visit [facility] [address] [place] [address] Coco Smith MD [address] [place] [address] Orthopedics & Sports Medicine, [facility] [place] [address] 11/01/2025 1:30 PM EDT Telemedicine [facility] [address] [facility], 2nd Floor, [address] [place] [address] Bossman Weems MD [address] [place] [address] [email or web address] 12/10/2025 2:00 PM EDT Office Visit [facility] General Surgical Care [address] [place] [address] Sarah Balderas MD [address] [facility], 2nd [place] [address] [email or web address] documented as of this encounter Visit Diagnoses Diagnosis Other form of dyspnea- Primary documented in this encounter Additional Health Concerns Infection Onset Date Last Indicated Resolved Time CoV-Risk 04/20/2024 04/20/2024 05/01/2024 1:22 AM EDT CoV-Risk 07/20/2024 07/20/2024 07/23/2024 9:54 AM EST COVID-19 Comment:Symptom onset = 07/20, 10 days, not immunocompromised 07/20/2024 07/23/2024 08/02/2024 1 2:18 PM EST documented as of this encounter Care Teams Warehouse Packaging Supervisor Relationship Specialty Start Date End Date Jv Tavera DO PCP - General Internal Medicine 06/14/17 03/25/25 Jv Tavera DO [address] [place] [address] PCP - General Internal Medicine 03/26/25 documented as of this encounter Additional Source Comments The information contained in this document represents components of the legal health record. It is not the complete legal health record.[facility]
--- OUTSIDE RECORDS SUMMARY | 2025-07-15 21:21 | XMS_ITS | Encounter Summary ---
Author Organization [facility] Address [address] [facility] [address] [place] [address] Phone Care Team Providers Care Priming Mixture Carrier Name Role Phone Jv Tavera Primary Care Provider [phone] Jv Tavera DO Primary Care Provider [phone] Encounter Details Date Type Department Care Team (Late st Contact Info) Description 03/03/2020 Procedure Pass [facility], Ct Scan - [facility] [address] [place] [address] Social History Tobacco Use Types Packs/Day Years [...] 07/16/2025 10:45 AM EST Appointment [facility] 30 [place] [phone] Esther Bryant, OT 168 [place] [address] 07/17/2025 4:00 AM EST Appointment [facility] [address] [place], [place] [phone] Michelle'Malika Cedillo RN 168 [place] [address] 07/18/2025 10:45 AM EST Appointment [facility] [address] [place] [address] Esther Bryant, OT [address] [place] [address] 07/22/2025 1:00 AM EST Appointment [facility] [address] [place] [address] Esther Bryant, OT [address] [place] [address] 07/23/2025 12:30 AM EST Appointment [facility] [address] [place] [address] O'Malika Cedillo RN [address] [place] [address] 07/23/2025 1:00 AM EST Appointment [facility] [address] [place], [place] [phone] Esther Bryant, OT [address] [place] [address] 07/24/2025 1:30 PM EST Office Visit [facility] [address] [place] [address] Karina Pedraza, SCIENTIFIC SOFTWARE DEVELOPER [address] [address] 07/31/2025 3:00 AM EST Appointment [facility] [address] [place], [place] [phone] Malika Mcintosh RN 168 [place] [address] 08/07/2025 1:00 AM EST Appointment [facility] [address] [place] [address] O'Nguyen, Malika Xiao RN [address] [place] [address] 08/15/2025 Appointment [facility] [address] [place] [address] O'Nguyen, Malika Xiao RN 168 [place] [address] 08/21/2025 2:00 PM EST Office Visit [facility] [address] [facility] 3rd Floor, [address] [place] [address] Yvan Bates MD [address] [facility], [address] [place] [address] 09/04/2025 1:00 PM EST Office Visit [facility] Orthopedics & Sports Medicine [address] [place] [address] Coco Smith MD [address] [place] [address] Orthopedics & Sports Medicine, [facility] [place] [address] 11/01/2025 1:30 PM EDT Telemedicine [facility] [address] [place] [address], 2nd Floor, [address] [place] [address] Bossman Weems MD [address] [place] [address] [address] [place] [address] [email or web address] 12/10/2025 2:00 PM EDT Office Visit [facility] General Surgical Care [address] [place] [address] Sarah Balderas MD [address] [place] [address], [address] [place] [address] [email or web address] documented as of this encounter Visit Diagnoses [...] documented as of this encounter Care Teams Priming Mixture Carrier Relationship Specialty Start Date End Date Jv Tavera DO PCP - General Internal Medicine 06/14/17 03/25/25 Jv Tavera DO [address] [place] [address] PCP - General Internal Medicine 03/26/25 documented as of this encounter Additional Source Comments The information contained in this document represents components of the legal health record. It is not the complete legal health record.[facility]
--- OUTSIDE RECORDS SUMMARY | 2025-07-15 21:21 | XMS_ITS | Encounter Summary ---
Author Organization [facility] Address [address] [facility] [address] [place] [address] Phone Care Team Providers Care Nursery Rn Name Role Phone Jv Tavera DO Primary Care Provider [phone] Jv Tavera DO Primary Care Provider [phone] Encounter Details Date Type Department Care Team (Latest Contact Info) Description 06/14/2017 Transcribe Orders [facility] [address] [address] Viet Torres MD [address] [place] [address] [email or web address] Celiac disease (Primary Dx); Slow transit constipation Social History Tobacco Use Types Packs/Day Years [...] Appointment [facility] [address] [place], [place] [phone] Esther Bryant, OT 168 [place] [address] 07/17/2025 4:00 AM EST Appointment [facility] 30 [place] [address] O'Malika Cedillo, PEARL 168 [place] [address] [email or web address] 07/18/2025 10:45 AM EST Appointment [facility] 30 [place] [phone] Esther Bryant, OT [address] [place] [address] [email or web address] 07/22/2025 1:00 AM EST Appointment [facility] [address] [place] [phone] Esther Bryant, OT 168 [place] [address] [email or web address] 07/23/2025 12:30 AM EST Appointment [facility] [address] [place] [phone] O'Malika Cedillo, PEARL [address] [place] [address] [email or web address] 07/23/2025 1:00 AM EST Appointment [facility] [address] [place] [address] Esther Bryant, OT [address] [place] [address] [email or web address] 07/24/2025 1:30 PM EST Office Visit [facility] Clinic [address] [place] [address] Karina Pedraza, JOSÉ [address] [address] 07/31/2025 3:00 AM EST Appointment [facility] 30 [place] [address] O'Nguyen, Malika Xiao RN 168 [place] [address] 08/07/2025 1:00 AM EST Appointment [facility] 30 [place] [address] O'Nguyen, Malika Xiao RN [address] [place] [address] 08/15/2025 Appointment [facility] 30 [place] [address] O'Nguyen, Malika Xiao RN 168 [place] [address] 08/21/2025 2:00 PM EST Office Visit [facility] [address] [place] [address] 3rd Floor, [address] [place] [address] Yvan Bates MD [address] [place] [address] [email or web address] 09/04/2025 1:00 PM EST Office Visit [facility] Orthopedics & Sports Medicine [address] [place] [address] Coco Smith MD [address] [place] [address] Orthopedics & Sports Medicine, [place] [address] 11/01/2025 1:30 PM EDT Telemedicine [facility] [address] [facility], 2nd Floor, [address] [place] [address] Bossman Weems MD [address] [place] [address] [address] [place] [address] [email or web address] 12/10/2025 2:00 PM EDT Office Visit [facility] General Surgical Care [address] [place] [address] Sarah Balderas MD 15 [facility], 2nd [place] [address] [email or web address] documented as of this encounter Results * Fecal immunochemical test x1 (FIT) (06/14/2017 2:08 PM EST) Fecal occult blood Negative Negative [facility] DPT OF LAB MED AND PAT+ Comment: (NOTE) Negative result. This test will not detect upper gastrointestinal bleeding; the HemoQuant test (0168)should be ordered if clinically indicated. Stool (Stool) 06/14/2017 2:0 8 PM EST 06/15/2017 10:15 AM EST us Viet Torres MD LAB BODY FLUIDS AND STOOL ORD ERABLES Final Result [facility] DPT OF LAB MED AND PAT+ [address] [id number] documented in this encounter Visit Diagnoses Diagnosis Celiac disease- Primary Slow transit constipation documented in this encounter Additional Health Concerns [...] documented as of this encounter Care Teams Nursery Rn Relationship Specialty Start Date End Date Jv Tavera DO [email or web address] PCP - General Internal Medicine 06/14/17 03/25/25 Jv Tavera DO [address] [place] [address] [email or web address] PCP - General Internal Medicine 03/26/25 documented as of this encounter Additional Source Comments The information contained in this document represents components of the legal health record. It is not the complete legal health record.[facility]
--- OUTSIDE RECORDS SUMMARY | 2025-07-15 21:21 | XMS_ITS | Encounter Summary ---
Author Organization [facility] Address [address] [facility] [address] [place] [address] Phone Care Team Providers Care Poultry Packer Name Role Phone Jv Tavera Primary Care Provider [phone] Jv Tavera DO Primary Care Provider [phone] Encounter Details Date Type Department Care Team (Late Contact Info) Description 06/02/2018 Ancillary Orders Virtual Department 30 [place] [address] Nicolas Cuevas MD 22 [facility], [facility] 301 [place] [address] [email or web address] Dyspnea, unspecified type Social History Tobacco Use Types Packs/Day Years Used Date Smoking Tobacco: Never Smokeless Tobacco: Never Alcohol Use Standard Drinks/Week Comments Yes 0 (1 standard drink = 0.6 oz pur e alcohol) Comments No Sex and Gender Information Value [...] Appointment [facility] [address] [place] [phone] Esther Bryant, OT 168 [place], [place] [phone] [email or web address] 07/17/2025 4:00 AM EST Appointment [facility] [address] [place] [address] O'Malika Cedillo, PEARL [address] [place] [address] [email or web address] 07/18/2025 10:45 AM EST Appointment [facility] [address] [place] [address] Esther Bryant, OT [address] [place] [address] [email or web address] 07/22/2025 1:00 AM EST Appointment [facility] [address] [place] [phone] Esther Bryant, OT [address] [place] [address] [email or web address] 07/23/2025 12:30 AM EST Appointment [facility] [address] [place] [phone] O'Malika Cedillo, PEARL [address] [place] [address] [email or web address] 07/23/2025 1:00 AM EST Appointment [facility] [address] [place] [phone] Esther Bryant, OT [address] [place] [address] [email or web address] 07/24/2025 1:30 PM EST Office Visit [facility] [address] [place] [address] Karina Pedraza, JOSÉ [address] [address] 07/31/2025 3:00 AM EST Appointment [facility] [address] [place] [address] O'Nguyen, Malika Xiao RN [address] [place] [address] 08/07/2025 1:00 AM EST Appointment [facility] [address] [place] [address] O'Nguyen, Malika Xiao RN 168 [place] [address] 08/15/2025 Appointment [facility] [address] [place] [phone] O'Nguyen, Malika Xiao RN [address] [place] [address] 08/21/2025 2:00 PM EST Office Visit [facility] [address] [place] [address] 3rd Floor, [address] [place] [address] Yvan Bates MD [address] [place] [address] 09/04/2025 1:00 PM EST Office Visit [facility] Orthopedics & Sports Medicine [address] [place] [address] Coco Smith MD [address] [place] [address] Orthopedics & Sports Medicine, [place] [address] 11/01/2025 1:30 PM EDT Telemedicine [facility] [address] [place] [address], 2nd Floor, [address] [place] [address] Bossman Weems MD [address] [place] [address] [address] [place] [address] [email or web address] 12/10/2025 2:00 PM EDT Office Visit [facility] General Surgical Care [address] [place] [address] Sarah Balderas MD 15 [facility], 2nd [place] [address] documented as of this encounter Results * XR CHEST PA AND LATERAL 2 VIEWS (06/05/2018 1:48 PM EST) Anatomical Region Laterality Modality Chest Radiographic Yahaira ging 06/05/2018 3:02 PM EST Impressions 06/05/2018 3:03 PM EST No acute pulmonary process or explanation for dyspnea is seen. S/S: Dyspnea POS - [id number] Narrative 06/05/2018 3:03 PM EST COMPARISON: Chest x-ray May 21, 2009 FINDINGS: PA and lateral imaging of the chest is obtained. The heart size is normal. The lung flynn are clear. No pneumothorax or pleural fluid is noted. The aortic contour is unchanged. There are negligible degenerative changes in the thoracic spine. Procedure Note Lev Thomas MD - 06/05/2018 COMPARISON: Chest x-ray May 21, 2009 FINDINGS: PA and lateral imaging of the chest is obtained. The heart size is normal. The lung flynn are clear. No pneumothorax or pleural fluid is noted. The aortic contour is unchanged. There are negligible degenerative changes in the thoracic spine. IMPRESSION: No acute pulmonary process or explanation for dyspnea is seen. S/S: Dyspnea POS - [id number] Nicolas Cuevas MD IMG XR CHEST Final Result documented in this encounter Visit Diagnoses Diagnosis Dyspnea, unspecified type Dyspnea, unspecified type documented in this encounter Additional [...] documented as of this encounter Care Teams Poultry Packer Relationship Specialty Start Date End Date Jv Tavera DO PCP - General Internal Medicine 06/14/17 03/25/25 Jv Tavera DO [address] [place] [address] PCP - General Internal Medicine 03/26/25 documented as of this encounter Additional Source Comments The information contained in this document represents components of the legal health record. It is not the complete legal health record.[facility]
--- OUTSIDE RECORDS SUMMARY | 2025-07-15 21:21 | XMS_ITS | Encounter Summary ---
Author Organization [facility] Address [address] [facility] [address] [place] [address] Phone Care Team Providers Care Vp Construction Name Role Phone Jv Tavera Primary Care Provider [phone] TyshawnJv cuello Primary Care Provider [phone] Reason for Referral * MRI/CAT Scan - Closed Specialty Diagnoses / Procedures Referred By Rylie [email or web address] Referred To Contact Radiology Diagnoses Multiple nodules of lung Other nonspecific abnormal finding of lung field Procedures CT Chest Nicolas Cuevas MD Phone: tel: fax: mailto: Referral ID Status Reason Start Date Expiration Date Visits Re quested Visits Authorized [id number] Closed 03/03/2020 03/03/2021 1 1 Encounter Details Date Type Department Care Team (Latest Contact Info) Description 03/03/2020 Transcribe Orders Virtual Department [address] [place] [address] Nicolas Cuevas MD 22 [facility], [facility] [email or web address] [address] [place] [address] [email or web address] Multiple nodules of lung (Primary Dx); Other nonspecific abnormal finding of lung field Social History Tobacco Use Types Packs/Day Years [...] 07/16/2025 10:45 AM EST Appointment [facility] [address] [place] [phone] Esther Bryant, OT [address] [place] [address] 07/17/2025 4:00 AM EST Appointment [facility] [address] [place] [phone] O'Malika Cedillo RN [address] [place] [address] 07/18/2025 10:45 AM EST Appointment [facility] [address] [place] [phone] Esther Bryant, OT [address] [place] [address] 07/22/2025 1:00 AM EST Appointment [facility] [address] [place] [phone] Esther Bryant, OT [address] [place] [address] 07/23/2025 12:30 AM EST Appointment [facility] [address] [place] [phone] O'Malika Cedillo RN [address] [place] [address] 07/23/2025 1:00 AM EST Appointment [facility] [address] [place] [phone] Esther Bryant, OT [address] [place] [address] 07/24/2025 1:30 PM EST Office Visit [facility] 10 [place] [address] Karina Pedraza, JOSÉ [address] [address] 07/31/2025 3:00 AM EST Appointment [facility] [address] [place] [address] O'Nguyen, Malika Xiao RN [address] [place] [address] 08/07/2025 1:00 AM EST Appointment [facility] [address] [place] [phone] O'Nguyen, Malika Xiao RN [address] [place] [address] 08/15/2025 Appointment [facility] [address] [place] [phone] O'Nguyen, Malika Xiao RN [address] [place] [address] 08/21/2025 2:00 PM EST Office Visit [facility] [address] [place] [address] 3rd Floor, [address] [place] [address] Yvan Bates MD 22 [facility], [address] [address] 09/04/2025 1:00 PM EST Office Visit [facility] [address] [place] [address] Coco Smith MD 4 [facility] [place] [address] [email or web address] 11/01/2025 1:30 PM EDT Telemedicine [facility] [address] [facility], 2nd Floor, [address] [place] [address] Bossman Weems MD [address] [facility] [address] [place] [address] [email or web address] 12/10/2025 2:00 PM EDT Office Visit [facility] General [facility] Care 15 [place] [address] Sarah Balderas MD 15 [facility], 2nd [place] [address] [email or web address] documented as of this encounter Results * CT CHEST WITHOUT CONTRAST (04/11/2020 12:22 PM EDT) Anatomical Region Laterality Modality Chest Computed Tomogra phy 04/11/2020 12:3 4 PM EDT Impressions 04/11/2020 12:46 PM EDT Interval resolution of linear right lower lobe atelectasis and left-sided parenchymal nodules. Minimal new lingular atelectasis and equivocal ground-glass infiltration. Stable right lower lobe pleural-based nodule and multiple left lower lobe nodules without new or enlarging parenchymal nodules or other significant intrathoracic pathology demonstrated on this non-contrast study. TOTAL CTDIvol: mGy POS - [id number] Narrative 04/11/2020 12:46 PM EDT COMPARISON: 03/23/2019 CT TECHNIQUE: CT chest without IV contrast. Multiplanar reformatted images generated. Automated exposure control utilized. FINDINGS: There is a new 6 mm focus of pleural thickening along the margin of the right upper lobe (series 4 image 83) which is almost certainly postinflammatory. There is a stable pleural-based nodule versus scar in the right lower lobe abutting the major fissure, measuring 7 x 5 mm in transverse dimensions. There has been interval resolution of the right lower lobe atelectasis and left upper lobe pleural-based nodule, with small chronic nodules and a granuloma in the left lower lobe unchanged. Additional scattered zones of pleural-parenchymal scarring are noted minimal presumed inflammatory thickening along the peripheral aspect of the right major fissure (image 191). There is minimal linear and ground-glass opacity in the dorsal aspect of the base of the lingula. No new or enlarging parenchymal nodules, acute airspace consolidation, or discrete pleural effusion noted. Mild stable emphysematous changes. No paulette bronchiectasis has developed although there is stable borderline right lower lobe atelectasis. No pathologically enlarged superior mediastinal lymph node or significant pericardial effusion have developed in the interim. Pulmonary tory are stable in appearance. No supraclavicular mass or axillary lymphadenopathy demonstrated. No new traumatic or destructive skeletal lesions have developed. Adrenal glands are not enlarged. Remainder the visualized upper abdominal visceral structures appear grossly stable. Procedure Note Ata Bansal MD - 04/11/2020 COMPARISON: 03/23/2019 CT TECHNIQUE: CT chest without IV contrast. Multiplanar reformatted imagesgenerated. Automated exposure control utilized. FINDINGS: There is a new 6 mm focus of pleural thickening along the margin of theright upper lobe (series 4 image 83) which is almost certainlypostinflammatory. There is a stable pleural-based nodule versus scar inthe right lower lobe abutting the major fissure, measuring 7 x 5 mm intransverse dimensions. There has been interval resolution of the rightlower lobe atelectasis and left upper lobe pleural-based nodule, withsmall chronic nodules and a granuloma in the left lower lobe unchanged.Additional scattered zones of pleural-parenchymal scarring are notedminimal presumed inflammatory thickening along the peripheral aspect ofthe right major fissure (image 191). There is minimal linear andground-glass opacity in the dorsal aspect of the base of the lingula. Nonew or enlarging parenchymal nodules, acute airspace consolidation, ordiscrete pleural effusion noted. Mild stable emphysematous changes. Nofrank bronchiectasis has developed although there is stable borderlineright lower lobe atelectasis. No pathologically enlarged superior mediastinal lymph node or significantpericardial effusion have developed in the interim. Pulmonary tory arestable in appearance. No supraclavicular mass or axillary lymphadenopathy demonstrated. No newtraumatic or destructive skeletal lesions have developed. Adrenal glands are not enlarged. Remainder the visualized upper abdominalvisceral structures appear grossly stable. IMPRESSION: Interval resolution of linear right lower lobe atelectasis and left- sidedparenchymal nodules. Minimal new lingular atelectasis and equivocalground-glass infiltration. Stable right lower lobe pleural-based noduleand multiple left lower lobe nodules without new or enlarging parenchymalnodules or other significant intrathoracic pathology demonstrated on thisnon-contrast study. TOTAL CTDIvol: mGy POS - [id number] Nicolas Cuevas MD IMG CT CHEST Final Result documented in this encounter Visit Diagnoses Diagnosis Multiple nodules of lung- Primary Other nonspecific abnormal finding of lung field Multiple nodules of lung Other nonspecific abnormal finding of lung field documented in this encounter Additional Health Concerns [...] documented as of this encounter Care Teams Vp Construction Relationship Specialty Start Date End Date Jv Tavera DO PCP - General Internal Medicine 06/14/17 03/25/25 Jv Tavera DO [address] [place] [address] [email or web address] PCP - General Internal Medicine 03/26/25 documented as of this encounter Additional Source Comments The information contained in this document represents components of the legal health record. It is not the complete legal health record.[facility]
--- OUTSIDE RECORDS SUMMARY | 2025-07-15 21:21 | XMS_ITS | Encounter Summary ---
Author Organization [facility] Address [address] [facility] [address] [place] [address] Phone Care Team Providers Care White Sidewall Tire Buffer Name Role Phone Tyshawncuate Jv Rivera DO Primary Care Provider [phone] Jv Tavera DO Primary Care Provider [phone] Encounter Details Date Type Department Care Team (Late st Contact Info) Description 03/16/2024 Transcribe Orders Virtual Department [address] [place] [address] Jv Tavera DO 179 [facility] [address] [place] [address] Other nonspecific abnormal finding of lung field (Primary Dx) Social History Tobacco Use Types [...] 07/16/2025 10:45 AM EST Appointment [facility] [address] [place] [address] Esther Bryant, OT [address] [place] [address] [email or web address] 07/17/2025 4:00 AM EST Appointment [facility] [address] [place] [address] O'Nguyen, Malika Xiao, RN [address] [place] [address] [email or web address] 07/18/2025 10:45 AM EST Appointment [facility] [address] [place] [address] Esther Bryant, OT [address] [place] [address] [email or web address] 07/22/2025 1:00 AM EST Appointment [facility] [address] [place] [address] Esther Bryant, OT [address] [place] [address] 07/23/2025 12:30 AM EST Appointment [facility] [address] [place] [address] O'Malika Cedillo RN [address] [place] [address] 07/23/2025 1:00 AM EST Appointment [facility] 30 [place] [phone] Esther Bryant, OT [address] [place] [address] 07/24/2025 1:30 PM EST Office Visit [facility] [address] [place] [address] Karina Pedraza, VOICE OVER ARTIST [address] [address] 07/31/2025 3:00 AM EST Appointment [facility] [address] [place] [address] O'Malika Cedillo RN [address] [place] [address] 08/07/2025 1:00 AM EST Appointment [facility] [address] [place], [place] [phone] O'Malika Cedillo RN [address] [place] [address] 08/15/2025 Appointment [facility] [address] [place], [place] [phone] O'Nguyen, Malika Xiao, PEARL [address] [place] [address] [email or web address] 08/21/2025 2:00 PM EST Office Visit [facility] [address] [facility] 3rd Floor, [address] [place] [address] Yvan Bates MD 22 [facility], [address] [place] [address] [email or web address] 09/04/2025 1:00 PM EST Office Visit [facility] Medicine [address] [place] [address] Coco Smith MD [address] [place] [address] Orthopedics & Sports Medicine, [place] [address] 11/01/2025 1:30 PM EDT Telemedicine [facility] [address] [facility], 2nd Floor, [address] [place] [address] Bossman Weems MD [address] [place] [address] [address] [place] [address] [email or web address] 12/10/2025 2:00 PM EDT Office Visit [facility] General Surgical Care 15 [place] [address] Sarah Balderas MD 15 [facility], 2nd [place] [address] [email or web address] documented as of this encounter Visit Diagnoses Diagnosis Other nonspecific abnormal finding of lung field- Primary documented in this encounter Additional Health Concerns Infection Onset Date Last Indicated Resolved Time CoV-Risk 04/20/2024 04/20/2024 05/01/2024 1:22 AM EDT CoV-Risk 07/20/2024 07/20/2024 07/23/2024 9:54 AM EST COVID-19 Comment:Symptom onset = 12/20, 10 days, not immunocompromised 07/20/2024 07/23/2024 08/02/2024 1 2:18 PM EST documented as of this encounter Care Teams [employer] Buffer Relationship Specialty Start Date End Date Jv Tavera DO PCP - General Internal Medicine 06/14/17 03/25/25 Jv Tavera DO [address] [place] [address] PCP - General Internal Medicine 03/26/25 documented as of this encounter Additional Source Comments The information contained in this document represents components of the legal health record. It is not the complete legal health record.[facility]
--- OUTSIDE RECORDS SUMMARY | 2025-07-15 21:21 | XMS_ITS | Encounter Summary ---
Author Organization [facility] Address [address] [facility] [address] [place] [address] Phone Care Team Providers Care Dust Operator Name Role Phone Jv Tavera Primary Care Provider [phone] Jv Tavera DO Primary Care Provider [phone] Encounter Details Date Type Department Care Team (Late st Contact Info) Description 11/13/2021 Procedure Pass [facility], Ct Scan - [facility] [address] [place] [address] Social History Tobacco Use Types Packs/Day Years [...] 07/16/2025 10:45 AM EST Appointment [facility] [address] [place] [phone] Esther Bryant, OT [address] [place] [address] 07/17/2025 4:00 AM EST Appointment [facility] [address] [place] [phone] Michelle'Malika Cedillo RN [address] [place] [address] [email or web address] 07/18/2025 10:45 AM EST Appointment [facility] [address] [place] [address] sEther Bryant, OT [address] [place] [address] [email or web address] 07/22/2025 1:00 AM EST Appointment [facility] [address] [place] [address] Esther Bryant, OT [address] [place] [address] [email or web address] 07/23/2025 12:30 AM EST Appointment [facility] [address] [place] [address] O'Malika Cedillo RN [address] [place] [address] [email or web address] 07/23/2025 1:00 AM EST Appointment [facility] [address] [place], [place] [phone] Esther Bryant, OT [address] [place] [address] [email or web address] 07/24/2025 1:30 PM EST Office Visit [facility] [address] [place] [address] Karina Pedraza, SUPERVISOR CUSTOMER COMPLAINT SERVICE [address] [address] 07/31/2025 3:00 AM EST Appointment [facility] [address] [place] [address] Malika Mcintosh RN [address] [place] [address] 08/07/2025 1:00 AM EST Appointment [facility] 30 [place] [address] O'Nguyen, Malika Xiao RN [address] [place] [address] 08/15/2025 Appointment [facility] [address] [place] [address] O'Nguyen, Malika Xiao RN [address] [place] [address] 08/21/2025 2:00 PM EST Office Visit [facility] [address] [facility] 3rd Floor, [address] [place] [address] Yvan Bates MD [address] [facility], [address] [place] [address] 09/04/2025 1:00 PM EST Office Visit [facility]ics & Sports Medicine [address] [place] [address] Coco Smith MD [address] [place] [address] Orthopedics & Sports Medicine, [facility] [place] [address] 11/01/2025 1:30 PM EDT Telemedicine [facility] [address] [place] [address], 2nd Floor, [address] [place] [address] Bossman Weems MD [address] [place] [address] [address] [place] [address] [email or web address] 12/10/2025 2:00 PM EDT Office Visit [facility] General Surgical Care [address] [place] [address] [place] [address] Sarah Balderas MD [address] [place] [address], 2nd [place] [address] documented as of this encounter Visit Diagnoses Not on filedocumented in this encounter Additional Health Concerns Infection Onset Date Last Indicated Resolved Time COVID-19 09/16/2022 09/29/2022 10/20/2022 1:21 AM EDT C. diff 09/29/2022 09/29/2022 10/29/2022 1:21 AM EDT CoV-Risk 04/20/2024 04/20/2024 05/01/2024 1:22 AM EDT CoV-Risk 07/20/2024 07/20/2024 07/23/2024 9:54 AM EST COVID-19 Comment:Symptom onset = 07/20, 10 days, not immunocompromised 07/20/2024 07/23/2024 08/02/2024 1 2:18 PM EST documented as of this encounter Care Teams Dust Operator Relationship Specialty Start Date End Date Jv Tavera DO PCP - General Internal Medicine 06/14/17 03/25/25 Jv Tavera DO [address] [place] [address] PCP - General Internal Medicine 03/26/25 documented as of this encounter Additional Source Comments The information contained in this document represents components of the legal health record. It is not the complete legal health record.[facility]
--- OUTSIDE RECORDS SUMMARY | 2025-07-15 21:21 | XMS_ITS | Encounter Summary ---
Author Organization [facility] Address [address] [facility] [address] [place] [address] Phone Care Team Providers Care Esthetician Name Role Phone Tyshawncuate Jv Rivera DO Primary Care Provider [phone] Jv Tavera DO Primary Care Provider [phone] Encounter Details Date Type Department Care Team (Late st Contact Info) Description 08/03/2017 Transcribe Orders [facility] [address] [place] [address] Jv Tavera DO 179 [facility] [place] [address] Hyperlipidemia, unspecified hyperlipidemia type (Primary Dx) Social History Tobacco Use [...] Appointment [facility] 30 [place], [place] [phone] Esther Bryant, OT [address] [place] [address] [email or web address] 07/17/2025 4:00 AM EST Appointment [facility] 30 [place] [address] Malika Mcintosh RN [address] [place] [address] [email or web address] 07/18/2025 10:45 AM EST Appointment [facility] 30 [place] [address] Esther Bryant, OT [address] [place] [address] 07/22/2025 1:00 AM EST Appointment [facility] [address] [place] [phone] Esther Bryant, OT [address] [place] [address] [email or web address] 07/23/2025 12:30 AM EST Appointment [facility] [address] [place] [phone] Malika Mcintosh, PEARL [address] [place] [address] [email or web address] 07/23/2025 1:00 AM EST Appointment [facility] [address] [place] [address] Esther Bryant, OT [address] [place] [address] [email or web address] 07/24/2025 1:30 PM EST Office Visit [facility] Gastroenterology Clinic 10 [place] [address] Karina Pedraza, JOSÉ [address] [address] 07/31/2025 3:00 AM EST Appointment [facility] [address] [place] [phone] O'Nguyen, Malika Xiao RN [address] [place] [address] 08/07/2025 1:00 AM EST Appointment [facility] [address] [place] [phone] O'Nguyen, Malika Xiao RN [address] [place] [address] 08/15/2025 Appointment [facility] [address] [place] [address] O'Nguyen, Malika Xiao RN [address] [place] [address] 08/21/2025 2:00 PM EST Office Visit [facility] [address] [facility] 3rd Floor, [address] [place] [address] Yvan Bates MD 22 [facility], [address] [address] 09/04/2025 1:00 PM EST Office Visit [facility] Orthopedics & Sports Medicine [address] [place] [address] Coco Smith MD [address] [place] [address] Orthopedics & Sports Medicine, [facility] [place] [address] 11/01/2025 1:30 PM EDT Telemedicine [facility] [address] [facility], 2nd Floor, [address] [place] [address] Bossman Weems MD [address] [place] [address] [address] [place] [address] [email or web address] 12/10/2025 2:00 PM EDT Office Visit [facility] General Surgical Care [address] [place] [address] Sarah Balderas MD 15 [facility], 2nd [place] [address] [email or web address] documented as of this encounter Results * Lipid panel (08/03/2017 10:47 AM EST) HDL 53 mg/dL [facility] Comment: Interpretation: Risk Level Females Decreased >55mg/dL Average 50-55 mg/dL Increased <50 mg/dL CHOLESTEROL 212 0 - 240 mg/dL [facility] TRIGLYCERIDES 151 30 - 160 mg/dL [facility] LDL 129 50 - 129 mg/dL [facility] Comment: LDL levels in terms of risk for coronary heart disease: <100 mg/dL: Optimal 100-129 mg/dL: Near or above optimal 130-159 mg/dL: Borderline high 160-189 mg/dL: High >190 mg/dL: Very High CARDIAC RISK RATIO 4.0 3.3 - 4.4 C [facility] Blood 08/03/2017 10:4 7 AM EST 08/03/2017 10:51 AM EST us Jv A Bigda DO LAB BLOOD BKR ORDERABLES Final R esult [facility] 30 [place] [address] documented in this encounter Visit Diagnoses Diagnosis Hyperlipidemia, unspecified hyperlipidemia type- Primary documented in this encounter Additional Health [...] documented as of this encounter Care Teams Esthetician Relationship Specialty Start Date End Date Jv Tavera DO PCP - General Internal Medicine 06/14/17 03/25/25 Jv Tavera DO [address] [place] [address] PCP - General Internal Medicine 03/26/25 documented as of this encounter Additional Source Comments The information contained in this document represents components of the legal health record. It is not the complete legal health record.[facility]
--- OUTSIDE RECORDS SUMMARY | 2025-07-15 21:21 | XMS_ITS | Encounter Summary ---
Author Organization [facility] Address [address] [facility] [address] [place] [address] Phone Care Team Providers Care Airline Reservation Agent Name Role Phone Jv Tavera DO Primary Care Provider [phone] Jv Tavera DO Primary Care Provider [phone] Encounter Details Date Type Department Care Team (Latest Contact Info) Description 01/10/2018 Transcribe Orders [facility]FT [facility] 30 [place] [address] Sonia Gooden PA-C 54 [address]ains. Jeramie. [address] [place] [address] [email or web address] Dyspnea, unspecified type (Primary Dx) Social History Tobacco [...] Appointment [facility] 30 [place] [phone] Esther Bryant, OT [address] [place] [address] 07/17/2025 4:00 AM EST Appointment [facility] [address] [place] [phone] O'Malika Cedillo, PEARL [address] [place] [address] 07/18/2025 10:45 AM EST Appointment [facility] [address] [place] [address] Esther Bryant, OT [address] [place] [address] 07/22/2025 1:00 AM EST Appointment [facility] [address] [place] [phone] Esther Bryant, OT [address] [place] [address] 07/23/2025 12:30 AM EST Appointment [facility] [address] [place] [phone] O'Nguyen, Malika Xiao, PEARL [address] [place] [address] 07/23/2025 1:00 AM EST Appointment [facility] [address] [place] [phone] Esther Bryant, OT [address] [place] [address] 07/24/2025 1:30 PM EST Office Visit [facility] [address] [place] [address] Karina Pedraza, MANGLE PRESS CATCHER [address] [address] 07/31/2025 3:00 AM EST Appointment [facility] 30 [place] [address] O'Nguyen, Malika Xiao RN [address] [place] [address] 08/07/2025 1:00 AM EST Appointment [facility] [address] [place] [address] O'Nguyen, Malika Xiao RN [address] [place] [address] 08/15/2025 Appointment [facility] [address] [place] [address] O'Nguyen, Malika Xiao RN [address] [place] [address] 08/21/2025 2:00 PM EST Office Visit [facility] [address] [place] [address] 3rd Floor, [address] [place] [address] Yvan Bates MD [address] [place] [address] 09/04/2025 1:00 PM EST Office Visit [facility] Sports Medicine [address] [place] [address] Coco Smith MD [address] [place] [address] Orth[facility] [place] [address] 11/01/2025 1:30 PM EDT Telemedicine [facility] [address] [place] [address], 2nd Floor, [address] [place] [address] Bossman Weems MD [address] [place] [address] [address] [place] [address] [email or web address] 12/10/2025 2:00 PM EDT Office Visit [facility] General Surgical Care [address] [place] [address] Sarah Balderas MD [address] [facility], 2nd [place] [address] [email or web address] documented as of this encounter Results * Pulmonary Function Test Reason for Exam: Dyspnea/Shortness of Breath; Type of PFT Test: Spirometry with bronchodilator, Spirometry while seated and supine, Lung Volumes, DLCO; Performing Location: [facility] (01/17/2018 11:39 AM EDT) [facility] Signature FEV1 1.84 liters FVC 2.52 liters FEV1/FVC 73 liters TLC 5.09 liters DLCO 14.1 ml/mmHg sec Anatomical Region Laterality Modality Other Impressions 01/17/2018 11:39 AM EDT PULMONARY FUNCTION STUDIES Full pulmonary function studies were performed on this 77 y.o. year-old female for evaluation of dyspnea. Review of the medical record reveals that the patient is a never smoker. Prior pulmonary function studies are available for comparison, performed on 01/15/14. SPIROMETRY: The FEV1 is normal at 1.84 L or 97% predicted. The FVC is normal at 2.52 L or 92% predicted. The FEV1/FVC ratio is normal at 73%. After the administration of a bronchodilator agent, there is a 12% improvement in FEV1 (240 mL), which is technically significant, though the FEV1/FVC ratio remains essentially unchanged at 72%. Mid flows are impaired but peak flows are normal. FLOW-VOLUME LOOPS: Evaluation of the flow-volume loops reveals normal morphology of both the inspiratory and expiratory limbs, though with a modest improvement in parameters in the post bronchodilator tracings. LUNG VOLUME MEASUREMENTS BY NITROGEN WASHOUT: The total lung capacity is normal at 5.09 L or 103% predicted. The functional residual capacity is normal at 3.40 L or 121% predicted. DIFFUSION CAPACITY: The diffusion capacity is mildly impaired at 14.1 mL/mmHg sec or 73% predicted. COMPARISON TO PRIOR STUDIES: When comparing to prior studies, the bronchodilator responses and new. The mild gas exchange (DLCO) impairment remains, but is slightly worse compared to 78% predicted on the prior study. Resting oxygen saturation is 93% on room air. IMPRESSION: Abnormal pulmonary function studies as evidenced primarily by a mild impairment in diffusion capacity, which may be secondary to pulmonary vascular disease, interstitial lung disease and/or anemia. Lung volume measurements are essentially normal. Spirometry is nearly normal, though there is a technically significant bronchodilator response, and mid flows are mildly impaired. If a diagnosis of asthma is in question, a methacholine challenge study could be performed to further evaluate this. us Provider Not In System PhD PFT ORDERABLES Final Result documented in this encounter Visit Diagnoses Diagnosis Dyspnea, unspecified type- Primary Dyspnea, unspecified type documented in this encounter [...] documented as of this encounter Care Teams Airline Reservation Agent Relationship Specialty Start Date End Date Jv Tavera DO PCP - General Internal Medicine 06/14/17 03/25/25 Jv Tavera DO [address] [place] [address] PCP - General Internal Medicine 03/26/25 documented as of this encounter Additional Source Comments The information contained in this document represents components of the legal health record. It is not the complete legal health record.[facility]
--- OUTSIDE RECORDS SUMMARY | 2025-07-15 21:21 | XMS_ITS | Encounter Summary ---
Author Organization [facility] Address [address] [facility] [address] [place] [address] Phone Care Team Providers Care Director Treasurer Name Role Phone TyshawnJv cuello Primary Care Provider [phone] Jv Tavera DO Primary Care Provider [phone] Encounter Details Date Type Department Care Team (Late Contact Info) Description 04/21/2021 Transcribe Orders Virtual Department 30 [place] [address] Jv Tavera DO [address] [facility] [address] [place], [place] [id number] [email or web address] Encounter for laboratory testing for COVID-19 virus (Primary Dx) Social History Tobacco Use Types [...] Appointment [facility] 30 [place] [phone] Esther Bryant, OT 168 [place] [address] 07/17/2025 4:00 AM EST Appointment [facility] [address] [place] [phone] O'Malika Cedillo, PEARL [address] [place] [address] 07/18/2025 10:45 AM EST Appointment [facility] [address] [place] [phone] Esther Bryant, OT [address] [place] [address] 07/22/2025 1:00 AM EST Appointment [facility] [address] [place] [phone] Esther Bryant, OT [address] [place] [address] 07/23/2025 12:30 AM EST Appointment [facility] [address] [place] [phone] O'Malika Cedillo, PEARL [address] [place] [address] 07/23/2025 1:00 AM EST Appointment [facility] [address] [place] [phone] Esther Bryant, OT [address] [place] [address] 07/24/2025 1:30 PM EST Office Visit [facility] [address] [place] [address] Karina Pedraza, EMERGENCY MEDICAL TECH [address] [address] 07/31/2025 3:00 AM EST Appointment [facility] [address] [place] [address] O'Nguyen, Malika Xiao RN [address] [place] [address] 08/07/2025 1:00 AM EST Appointment [facility] 30 [place] [address] O'Nguyen, Malika Xiao RN [address] [place] [address] 08/15/2025 Appointment [facility] 30 [place] [address] O'Nguyen, Malika Xiao RN [address] [place] [address] 08/21/2025 2:00 PM EST Office Visit [facility] [address] [place] [address] 3rd Floor, [address] [place] [address] Yvan Bates MD [address] [place] [address], [address] [address] 09/04/2025 1:00 PM EST Office Visit [facility] Orthopedics & Sports Medicine [address] [place] [address] Coco Smith MD [address] [place] [address] [facility] [place] [address] 11/01/2025 1:30 PM EDT Telemedicine [facility] [address] [place] [address], 2nd Floor, [address] [place] [address] Bossman Weems MD [address] [place] [address] [address] [place] [address] [email or web address] 12/10/2025 2:00 PM EDT Office Visit [facility] General Surgical Care [address] [place] [address] Sarah Balderas MD 15 [facility], 2nd [place] [address] [email or web address] documented as of this encounter Results * COVID-19 PCR Order (04/21/2021 3:15 PM EDT) COVID Testing Status Specimen received in analyzing lab. Results should be available within 24 to 48 hrs. [facility] Symptomatic? NO [facility] Other (Nasal swab) 04/21/2021 3:15 PM EDT 04/21/2021 6:13 PM EDT us Jv A Liang DO LAB GENERAL ORDERABLES Final Res ult [facility] 30 [place] [address] [facility] [address] [place] [address] documented in this encounter Visit Diagnoses Diagnosis Encounter for laboratory testing for COVID-19 virus- Primary documented in this encounter Additional Health [...] documented as of this encounter Care Teams Director Treasurer Relationship Specialty Start Date End Date Jv Tavera DO [email or web address] PCP - General Internal Medicine 06/14/17 03/25/25 Jv Tavera DO [address] [place] [address] [email or web address] PCP - General Internal Medicine 03/26/25 documented as of this encounter Additional Source Comments The information contained in this document represents components of the legal health record. It is not the complete legal health record.[facility]
--- OUTSIDE RECORDS SUMMARY | 2025-07-15 21:21 | XMS_ITS | Encounter Summary ---
Author Organization [facility] Address [address] [facility] [address] [place] [address] Phone Care Team Providers Care Executive Secretary Name Role Phone Jv Tavera DO Primary Care Provider [phone] Jv Tavera DO Primary Care Provider [phone] Encounter Details Date Type Department Care Team (Late st Contact Info) Description 04/02/2020 Procedure Pass [facility] Card[facility] Food Counter Worker [address] [facility], Floor 9, [address] [place] [address] Social History Tobacco Use Types Packs/Day Years [...] [facility] [address] [place] [address] Esther Bryant, OT [address] [place] [address] 07/17/2025 4:00 AM EST Appointment [facility] [address] [place] [address] O'Malika Cedillo RN [address] [place] [address] 07/18/2025 10:45 AM EST Appointment [facility] [address] [place] [phone] Esther Bryant, OT [address] [place] [address] [email or web address] 07/22/2025 1:00 AM EST Appointment [facility] [address] [place] [address] Esther Bryant, OT [address] [place] [address] [email or web address] 07/23/2025 12:30 AM EST Appointment [facility] [address] [place] [address] O'Malika Cedillo RN [address] [place] [address] [email or web address] 07/23/2025 1:00 AM EST Appointment [facility] [address] [place] [phone] Esther Bryant, OT [address] [place] [address] [email or web address] 07/24/2025 1:30 PM EST Office Visit [facility] [address] [place] [address] Karina Pedraza, JOSÉ [address] [address] 07/31/2025 3:00 AM EST Appointment [facility] [address] [place] [phone] O'Malika Cedillo RN [address] [place] [address] 08/07/2025 1:00 AM EST Appointment [facility] [address] [place] [address] O'Nguyen, Malika Xiao RN [address] [place] [address] 08/15/2025 Appointment [facility] 30 [place] [address] O'Nguyen, Malika Xiao RN [address] [place] [address] 08/21/2025 2:00 PM EST Office Visit [facility] [address] [facility] 3rd Floor, [address] [place] [address] Yvan Bates MD [address] [facility], [address] [place] [address] 09/04/2025 1:00 PM EST Office Visit [facility] Orthopedics & Sports Medicine [address] [place] [address] Coco Smith MD [address] [place] [address] Orthopedics & Sports Medicine, [facility] [place] [address] 11/01/2025 1:30 PM EDT Telemedicine [facility] [address] [facility], 2nd Floor, [address] [place] [address] Bossman Weems MD [address] [place] [address] [address] [place] [address] [email or web address] 12/10/2025 2:00 PM EDT Office Visit [facility] General Surgical Care 15 [place] [address] Sarah Balderas MD [address] [facility], 2nd [place] [address] [email or web address] documented as of this encounter Visit Diagnoses [...] documented as of this encounter Care Teams Executive Secretary Relationship Specialty Start Date End Date Jv Tavera DO PCP - General Internal Medicine 06/14/17 03/25/25 Jv Tavera DO [address] [place] [address] PCP - General Internal Medicine 03/26/25 documented as of this encounter Additional Source Comments The information contained in this document represents components of the legal health record. It is not the complete legal health record.[facility]
--- OUTSIDE RECORDS SUMMARY | 2025-07-15 21:22 | XMS_ITS | Encounter Summary ---
Author Organization [facility] Address [address] [facility] [address] [place] [address] Phone Care Team Providers Care Banking Center Manager Name Role Phone Jv Tavera DO Primary Care Provider [phone] TyshawnJv cuello DO Primary Care Provider [phone] Encounter Details Date Type Department Care Team (Late st Contact Info) Description 04/20/2024 Procedure Pass [facility] [address] [place] [address] Social History Tobacco Use Types Packs/Day Years [...] computer) with a working camera? Yes 01/29/2024 Intimate Partner Violence Answer Date R ecorded [...] Date of Assessment Author No Risk Indicated 04/20/2024 9:19 PM EDT Steph Verdugo RN * Becker Suicide Severity Rating Scale (Screener/Recent Self-Report) Question Answer Date of Assessment Author 1. Wish to be (Past 1 Month) No 024 9:19 PM Steph Zamora RN 2. Non-Specific Active Suici alcira Thoughts (Past 1 Month) No 04/20/2024 9:19 PM Itzel Zamora RN 6. Suicidal Behavior (Lifetime) No 4 9:19 PM Steph Zamora RN documented as of this encounter Plan of Treatment Upcoming Encounters Date Type Department Care Team (Late st Contact Info) Description 07/16/2025 10:45 AM EST Appointment [facility] [address] [place] [address] Esther Bryant, OT [address] [place] [address] 07/17/2025 4:00 AM EST Appointment [facility] [address] [place] [phone] O'Malika Cedillo RN [address] [place] [address] 07/18/2025 10:45 AM EST Appointment [facility] [address] [place] [phone] Esther Bryant, OT [address] [place] [address] 07/22/2025 1:00 AM EST Appointment [facility] [address] [place] [phone] Esther Bryant, OT [address] [place] [address] 07/23/2025 12:30 AM EST Appointment [facility] [address] [place] [phone] O'Malika Cedillo RN [address] [place] [address] 07/23/2025 1:00 AM EST Appointment [facility] [address] [place] [phone] Esther Bryant, OT [address] [place] [address] 07/24/2025 1:30 PM EST Office Visit [facility] [address] [place] [address] Karina Pedraza, ROBOTIC TOY INVENTOR [address] [address] 07/31/2025 3:00 AM EST Appointment [facility] [address] [place] [address] O'Malika Cedillo RN [address] [place] [address] 08/07/2025 1:00 AM EST Appointment [facility] [address] [place] [address] O'Nguyen, Malika Xiao RN [address] [place] [address] 08/15/2025 Appointment [facility] [address] [place] [address] O'Nguyen, Malika Xiao RN [address] [place] [address] 08/21/2025 2:00 PM EST Office Visit [facility] [address] [place] [address] 3rd Floor, [address] [place] [address] Yvan Bates MD [address] [place] [address], [address] [place] [address] 09/04/2025 1:00 PM EST Office Visit [facility] [address] [place] [address] Coco Smith MD [address] [place] [address] Orthopedics & Sports Medicine, [facility]. [place], [place] [address] 11/01/2025 1:30 PM EDT Telemedicine [facility] [address] [place] [address], 2nd Floor, [address] [place] [address] Bossman Weems MD [address] [facility] [address] [place] [address] [email or web address] 12/10/2025 2:00 PM EDT Office Visit [facility] General Surgical Care 15 [place] [address] Sarah Balderas MD 15 [facility], 2nd [place] [address] documented as of this encounter Visit Diagnoses Not on filedocumented in this encounter Additional Health Concerns Infection Onset Date Last Indicated Resolved Time CoV-Risk 04/20/2024 04/20/2024 05/01/2024 1:22 AM EDT CoV-Risk 07/20/2024 07/20/2024 07/23/2024 9:54 AM EST COVID-19 Comment:Symptom onset = 07/20, 10 days, not immunocompromised 07/20/2024 07/23/2024 08/02/2024 1 2:18 PM EST documented as of this encounter Care Teams Banking Center Manager Relationship Specialty Start Date End Date Jv Tavera DO PCP - General Internal Medicine 06/14/17 03/25/25 Jv Tavera DO [address] [place] [address] PCP - General Internal Medicine 03/26/25 documented as of this encounter Additional Source Comments The information contained in this document represents components of the legal health record. It is not the complete legal health record.[facility]
--- OUTSIDE RECORDS SUMMARY | 2025-07-15 21:22 | XMS_ITS | Encounter Summary ---
Author Organization [facility] Address [address] [facility] [address] [place] [address] Phone Care Team Providers Care Neighborhood Planner Name Role Phone Jv Tavera Primary Care Provider [phone] TyshawnJv cuello DO Primary Care Provider [phone] Encounter Details Date Type Department Care Team (Late st Contact Info) Description 09/29/2022 Procedure Pass [facility], Ct Scan - [address] [address] Social History Tobacco Use Types Packs/Day Years [...] Date of Assessment Author No Risk Indicated 09/29/2022 5:16 AM Mihaela Jimenez RN * [place] Suicide Severity Rating Scale (Screener/Recent Self-Report) Question Answer Date of Assessment Author 1. Wish to be (Past 1 Month) No 09/29/2022 5:16 AM Maikel Jimenez RN 2. Non-Specific Active Suici alcira Thoughts (Past 1 Month) No 09/29/2022 5:16 AM EST Hans Cobb RN 6. Suicidal Behavior (Lifetime) No 5:16 AM EST Mihaela Cobb RN documented as of this encounter Plan of Treatment Upcoming Encounters Date Type Department Care Team (Late st Contact Info) Description 07/16/2025 10:45 AM EST Appointment [facility] [address] [place] [phone] Esther Bryant, OT [address] [place] [address] [email or web address] 07/17/2025 4:00 AM EST Appointment [facility] [address] [place] [phone] O'NguyenMalika RN [address] [place] [address] [email or web address] 07/18/2025 10:45 AM EST Appointment [facility] [address] [place] [phone] Esther Bryant, OT [address] [place] [address] [email or web address] 07/22/2025 1:00 AM EST Appointment [facility] [address] [place] [phone] Esther Bryant, OT [address] [place] [address] [email or web address] 07/23/2025 12:30 AM EST Appointment [facility] [address] [place] [phone] O'Malika Cedillo RN [address] [place] [address] [email or web address] 07/23/2025 1:00 AM EST Appointment [facility] [address] [place] [phone] Esther Bryant, OT [address] [place] [address] 07/24/2025 1:30 PM EST Office Visit [facility] 10 [place] [address] Karina Pedraza, JOSÉ [address] [address] 07/31/2025 3:00 AM EST Appointment [facility] 30 [place] [address] O'Nguyen, Malika Xiao RN [address] [place] [address] 08/07/2025 1:00 AM EST Appointment [facility] [address] [place] [phone] O'Nguyen, Malika Xiao RN [address] [place] [address] 08/15/2025 Appointment [facility] 30 [place] [phone] O'Nguyen, Malika Xiao RN [address] [place] [address] 08/21/2025 2:00 PM EST Office Visit [facility] [address] [place] [address] 3rd Floor, [address] [address] Yvan Bates MD [address] [place] [address], [address] [address] 09/04/2025 1:00 PM EST Office Visit [facility] [address] [place] [address] [phone] Coco Smith MD [address] [place] [address] Orthopedics & Sports Medicine, [facility]. [place], [place] [phone] 11/01/2025 1:30 PM EDT Telemedicine [facility] [address] [facility], 2nd Floor, [address] [place] [address] Bossman Weems MD 55 [facility] [address] [place] [address] [email or web address] 12/10/2025 2:00 PM EDT Office Visit [facility] General Surgical Care 15 [place] [address] Sarah Balderas MD [address] [facility], 2nd [place] [address] [email or web address] documented as of this encounter Visit Diagnoses [...] documented as of this encounter Care Teams Neighborhood Planner Relationship Specialty Start Date End Date Jv Tavera DO [email or web address] PCP - General Internal Medicine 06/14/17 03/25/25 Jv Tavera DO [address] [facility] [place] [address] [place] [address] (work) [email or web address] PCP - General Internal Medicine 03/26/25 documented as of this encounter Additional Source Comments The information contained in this document represents components of the legal health record. It is not the complete legal health record.[facility]
--- OUTSIDE RECORDS SUMMARY | 2025-07-15 21:22 | XMS_ITS | Encounter Summary ---
Author Organization [facility] Address [address] [facility] [address] [place] [address] Phone Care Team Providers Care Family Manager Name Role Phone Jv Tavera DO Primary Care Provider [phone] Jv Tavera DO Primary Care Provider [phone] Encounter Details Date Type Department Care Team (Late st Contact Info) Description 07/16/2022 Procedure Pass [facility] Cardiology Department [facility] - [address] [place] [address] Social History Tobacco Use Types Packs/Day Years [...] [facility] [address] [place] [phone] Esther Bryant, OT [address] [place], [place] [phone] 07/17/2025 4:00 AM EST Appointment [facility] [address] [place] [phone] Michelle'Malika Cedillo RN [address] [place] [address] [email or web address] 07/18/2025 10:45 AM EST Appointment [facility] [address] [place] [address] Esther Bryant, OT [address] [place] [address] [email or web address] 07/22/2025 1:00 AM EST Appointment [facility] [address] [place] [phone] Esther Bryant, OT [address] [place] [address] [email or web address] 07/23/2025 12:30 AM EST Appointment [facility] [address] [place] [address] O'Malika Cedillo RN [address] [place] [address] [email or web address] 07/23/2025 1:00 AM EST Appointment [facility] [address] [place], [place] [phone] Esther Bryant, OT [address] [place] [address] [email or web address] 07/24/2025 1:30 PM EST Office Visit [facility] G[facility] Clinic [address] [place] [address] Karina Pedraza, TREATING PLANT PUMPER [address] [address] 07/31/2025 3:00 AM EST Appointment [facility] [address] [place] [address] Malika Mcintosh RN [address] [place] [address] 08/07/2025 1:00 AM EST Appointment [facility] 30 [place] [address] O'Nguyen, Malika Xiao RN [address] [place] [address] 08/15/2025 Appointment [facility] [address] [place] [address] O'Nguyen, Malika Xiao RN [address] [place] [address] 08/21/2025 2:00 PM EST Office Visit [facility] [address] [facility] 3rd Floor, [address] [place] [address] Yvan Bates MD [address] [facility], [address] [place] [address] 09/04/2025 1:00 PM EST Office Visit [facility] Orth[facility]ics & Sports Medicine [address] [place] [address] Coco Smith MD [address] [place] [address] Orthopedics & Sports Medicine, [facility] [place] [address] 11/01/2025 1:30 PM EDT Telemedicine [facility] [address] [place] [address], 2nd Floor, [address] [place] [address] Bossman Weems MD [address] [place] [address] [address] [place] [address] [email or web address] 12/10/2025 2:00 PM EDT Office Visit [facility] General Surgical Care [address] [place] [address] [place] [address] Sarah Balderas MD [address] [place] [address], 2nd [place] [address] documented as of this encounter Visit Diagnoses [...] documented as of this encounter Care Teams Family Manager Relationship Specialty Start Date End Date Jv Tavera DO PCP - General Internal Medicine 06/14/17 03/25/25 Jv Tavera DO [address] [place] [address] PCP - General Internal Medicine 03/26/25 documented as of this encounter Additional Source Comments The information contained in this document represents components of the legal health record. It is not the complete legal health record.[facility]
--- OUTSIDE RECORDS SUMMARY | 2025-07-15 21:22 | XMS_ITS | Encounter Summary ---
Author Organization [facility] Address [address] [facility] [address] [place] [address] Phone Care Team Providers Care Unix Analyst Name Role Phone Jv Tavera DO Primary Care Provider [phone] Jv Tavera DO Primary Care Provider [phone] Encounter Details Date Type Department Care Team (Late Contact Info) Description 10/22/2022 Transcribe Orders [facility] 30 [place] [address] Bossman Weems MD [address] [place] [address] [email or web address] Social History Tobacco Use Types Packs/Day Years [...] 07/16/2025 10:45 AM EST Appointment [facility] 30 [place] [phone] Esther Bryant, OT [address] [place] [address] 07/17/2025 4:00 AM EST Appointment [facility] [address] [place] [phone] O'Malika Cedillo, PEARL [address] [place] [address] 07/18/2025 10:45 AM EST Appointment [facility] [address] [place] [address] Esther Bryant, OT [address] [place] [address] 07/22/2025 1:00 AM EST Appointment [facility] [address] [place] [phone] Esther Bryant, OT [address] [place] [address] 07/23/2025 12:30 AM EST Appointment [facility] [address] [place] [phone] OMalika Blackman, PEARL [address] [place] [address] 07/23/2025 1:00 AM EST Appointment [facility] [address] [place] [phone] Esther Bryant, OT [address] [place] [address] 07/24/2025 1:30 PM EST Office Visit [facility] Gastro[facility]ology Clinic [address] [place] [address] Karina Pedraza, JOSÉ [address] [address] 07/31/2025 3:00 AM EST Appointment [facility] 30 [place] [address] O'Nguyen, Malika Xiao RN [address] [place] [address] 08/07/2025 1:00 AM EST Appointment [facility] 30 [place] [phone] O'Nguyen, Malika Xiao RN [address] [place] [address] 08/15/2025 Appointment [facility] 30 [place] [phone] O'Nguyen, Malika Xiao RN [address] [place] [address] 08/21/2025 2:00 PM EST Office Visit [facility] [address] [place] [address] 3rd Floor, [address] [place] [address] Yvan Bates MD [address] [place] [address], [address] [address] 09/04/2025 1:00 PM EST Office Visit [facility] Orthopedics & Sports Medicine [address] [place] [address] Coco Smith MD [address] [place] [address] Orthopedics & Sports Medicine, [place] [address] 11/01/2025 1:30 PM EDT Telemedicine [facility] [address] [place] [address], 2nd Floor, [address] [place] [address] Bossman Weems MD [address] [place] [address] [address] [place] [address] [email or web address] 12/10/2025 2:00 PM EDT Office Visit [facility] General Surgical Care 15 [place] [address] Sarah Balderas MD 15 [facility], 2nd [place] [address] [email or web address] documented as of this encounter Visit Diagnoses Not on filedocumented in this encounter Additional Health Concerns Infection Onset Date Last Indicated Resolved Time C. diff 09/29/2022 09/29/2022 10/29/2022 1:21 AM EDT CoV-Risk 04/20/2024 04/20/2024 05/01/2024 1:22 AM EDT CoV-Risk 07/20/2024 07/20/2024 07/23/2024 9:54 AM EST COVID-19 Comment:Symptom onset = 07/20, 10 days, not immunocompromised 07/20/2024 07/23/2024 08/02/2024 1 2:18 PM EST documented as of this encounter Care Teams Unix Analyst Relationship Specialty Start Date End Date Jv Tavera DO PCP - General Internal Medicine 06/14/17 03/25/25 Jv Tavera DO [address] [place] [address] PCP - General Internal Medicine 03/26/25 documented as of this encounter Additional Source Comments The information contained in this document represents components of the legal health record. It is not the complete legal health record.[facility]
--- OUTSIDE RECORDS SUMMARY | 2025-07-15 21:22 | XMS_ITS | Encounter Summary ---
Author Organization [facility] Address [address] [facility] [address] [place] [address] Phone Care Team Providers Care Photo Colorer Name Role Phone Jv Tavera Primary Care Provider [phone] TyshawnJv cuello Primary Care Provider Reason for Referral * MRI/CAT Scan - Closed Specialty Diagnoses / Procedures Referred By Rylie [email or web address] Referred To Contact Radiology Diagnoses Other nonspecific abnormal finding of lung field Procedures CT Chest Nicolas Cuevas MD Phone: tel: fax: [email or web address] Referral ID Status Reason Start Date Expiration Date Visits Re quested Visits Authorized [id number] Closed 03/01/2019 02/29/2020 1 1 Encounter Details Date Type Department Care Team (Latest Contact Info) Description 03/01/2019 Transcribe Orders Virtual Department 30 [place] [address] Nicolas Cuevas MD [address] [facility], [facility] 301 [place] [address] [email or web address] Other nonspecific abnormal finding of lung field [...] 07/16/2025 10:45 AM EST Appointment [facility] [address] [place] [phone] Esther Bryant, OT [address] [place] [address] 07/17/2025 4:00 AM EST Appointment [facility] [address] [place] [phone] O'Malika Cedillo RN [address] [place] [address] 07/18/2025 10:45 AM EST Appointment [facility] [address] [place] [phone] Esther Bryant, OT [address] [place] [address] 07/22/2025 1:00 AM EST Appointment [facility] [address] [place] [phone] Esther Bryant, OT [address] [place] [address] 07/23/2025 12:30 AM EST Appointment [facility] [address] [place] [phone] Malika Mcintosh RN [address] [place] [address] 07/23/2025 1:00 AM EST Appointment [facility] [address] [place] [phone] Esther Bryant, OT [address] [place] [address] 07/24/2025 1:30 PM EST Office Visit [facility] Gastroenterology Clinic 10 [place] [address] Karina Pedraza, CONTINUOUS CONVEYOR SCREEN DRIER [address] [address] 07/31/2025 3:00 AM EST Appointment [facility] 30 [place] [address] O'Nguyen, Malika Xiao RN [address] [place] [address] 08/07/2025 1:00 AM EST Appointment [facility] 30 [place] [address] O'Nguyen, Malika Xiao RN [address] [place] [address] 08/15/2025 Appointment [facility] [address] [place] [phone] O'Nguyen, Malika Xiao RN [address] [place] [address] 08/21/2025 2:00 PM EST Office Visit [facility] [address] [place] [address] 3rd Floor, [address] [place] [address] Yvan Bates MD [address] [facility], [address] [address] 09/04/2025 1:00 PM EST Office Visit [facility] Medicine 4 [place] [address] Coco Smith MD [address] [place] [address] Orthopedics & Sports Medicine, [place] [address] [email or web address] 11/01/2025 1:[address] [facility] [address] [facility], 2nd Floor, [address] [place] [address] Bossman Weems MD [address] [place] [address] [address] [place] [address] [email or web address] 12/10/2025 2:00 PM EDT Office Visit [facility] General Surgical Care [address] [place] [address] [place] [address] Sarah Balderas MD [address] [facility], 2nd [place] [address] [email or web address] documented as of this encounter Results * CT CHEST WITHOUT CONTRAST (03/23/2019 10:27 AM EDT) Anatomical Region Laterality Modality Chest Computed Tomogra phy 03/23/2019 10:3 2 AM EDT Impressions 03/23/2019 12:15 PM EDT New under 6 mm pleural-parenchymal nodule on the left. Slight enlargement of area of pleural nodule on the right with some slight pleural thickening along the major fissure on the left now present as well. Improvement in the partial atelectasis in the right lower lobe with small amount of residual scarring. Continued follow-up recommended for the slightly progressive pleural based findings. TOTAL CTDIvol: 4.3 mGy POS - [id number] Edited by: Alisha Burton on 03/23/2019 10:58 AM Narrative 03/23/2019 12:15 PM EDT HISTORY: Abnormal prior CT. COMPARISON: September 08 TECHNIQUE: Unenhanced imaging obtained from lung apex to base. Sagittal and coronal reformats generated. Automated exposure control utilized. FINDINGS: Lungs and pleura: Bandlike area of atelectasis in the right lower lobe has decreased in volume with some reexpansion suggested. Small area remaining has a configuration suggestive of scarring. There is slight increased thickening of a pleural based nodule against the right major fissure towards the apical segment of the lower lobe. This now measures approximately 6.3 mm in average transaxial diameter, compared to 5.4 mm by my measurements previously. There is also a new pleural-parenchymal nodule in the left upper lobe abutting the fissure towards the superior segment and some slight thickening more inferiorly along the left major fissure. This measures under 6 mm. Granuloma at the left base again noted. No infiltrates or pleural effusions. No central airway lesion. No dominant mass lesions or infiltrates. Nodes: No adenopathy is detected. Cardiovascular: No findings of concern. Soft tissue and mediastinum: There is a small hiatal hernia. No mediastinal or chest wall mass is identified. Upper abdomen: Status post cholecystectomy. Hypodensity in the lateral segment left hepatic lobe has not clearly changed and may reflect hemangioma or cyst. Bones: Mild diffuse demineralization. Lower cervical degenerative disc disease. No compression deformity or bony destructive lesions are identified. Procedure Note Byron Berrios MD - 03/23/2019 HISTORY: Abnormal prior CT. COMPARISON: September 08 TECHNIQUE: Unenhanced imaging obtained from lung apex to base. Sagittaland coronal reformats generated. Automated exposure control utilized. FINDINGS: Lungs and pleura: Bandlike area of atelectasis in the right lower lobe hasdecreased in volume with some reexpansion suggested. Small area remaininghas a configuration suggestive of scarring. There is slight increasedthickening of a pleural based nodule against the right major fissuretowards the apical segment of the lower lobe. This now measuresapproximately 6.3 mm in average transaxial diameter, compared to 5.4 mm bymy measurements previously. There is also a new pleural-parenchymal nodulein the left upper lobe abutting the fissure towards the superior segmentand some slight thickening more inferiorly along the left major fissure.This measures under 6 mm. Granuloma at the left base again noted. Noinfiltrates or pleural effusions. No central airway lesion. No dominantmass lesions or infiltrates. Nodes: No adenopathy is detected. Cardiovascular: No findings of concern. Soft tissue and mediastinum: There is a small hiatal hernia. Nomediastinal or chest wall mass is identified. Upper abdomen: Status post cholecystectomy. Hypodensity in the lateralsegment left hepatic lobe has not clearly changed and may reflecthemangioma or cyst. Bones: Mild diffuse demineralization. Lower cervical degenerative discdisease. No compression deformity or bony destructive lesions areidentified. IMPRESSION: New under 6 mm pleural-parenchymal nodule on the left. Slight enlargementof area of pleural nodule on the right with some slight pleural thickeningalong the major fissure on the left now present as well. Improvement inthe partial atelectasis in the right lower lobe with small amount ofresidual scarring. Continued follow-up recommended for the slightlyprogressive pleural based findings. TOTAL CTDIvol: 4.3 mGy POS - [id number] Edited by: Alisha Burton on 03/23/2019 10:58 AM Nicolas Cuevas MD IMG CT CHEST Final Result documented in this encounter Visit Diagnoses Diagnosis Other nonspecific abnormal finding of lung field- Primary Other nonspecific abnormal finding of lung [...] documented as of this encounter Care Teams Photo Colorer Relationship Specialty Start Date End Date Jv Tavera DO [email or web address] PCP - General Internal Medicine 06/14/17 03/25/25 Jv Tavera DO [address] [place] [address] [email or web address] PCP - General Internal Medicine 03/26/25 documented as of this encounter Additional Source Comments The information contained in this document represents components of the legal health record. It is not the complete legal health record.[facility]
--- OUTSIDE RECORDS SUMMARY | 2025-07-15 21:22 | XMS_ITS | Encounter Summary ---
Author Organization [facility] Address [address] [facility] [address] [place] [address] Phone Care Team Providers Care Lead Care Manager Name Role Phone Jv Tavera Primary Care Provider [phone] TyshawnJv cuello DO Primary Care Provider [phone] Encounter Details Date Type Department Care Team (Late st Contact Info) Description 09/29/2022 Procedure Pass [facility], Ct Scan - [address] [address] Social History Tobacco Use Types Packs/Day Years [...] 09/29/2022 5:16 AM Mihaela Jimenez RN * [place] Suicide Severity Rating Scale (Screener/Recent Self-Report) Question [...] 07/16/2025 10:45 AM EST Appointment [facility] [address] [place] [phone] Esther Bryant, OT [address] [place] [address] [email or web address] 07/17/2025 4:00 AM EST Appointment [facility] [address] [place] [phone] O'NguyenMalika RN [address] [place] [phone] [email or web address] 07/18/2025 10:45 AM EST Appointment [facility] [address] [place] [phone] Esther Bryant, OT [address] [place] [address] [email or web address] 07/22/2025 1:00 AM EST Appointment [facility] [address] [place] [phone] Esther Bryant, OT [address] [place] [address] [email or web address] 07/23/2025 12:30 AM EST Appointment [facility] [address] [place] [phone] O'Malika Cedillo RN [address] [place] [address] [email or web address] 07/23/2025 1:00 AM EST Appointment [facility] [address] [place] [phone] Esther Bryant, OT [address] [place] [address] 07/24/2025 1:30 PM EST Office Visit [facility] 10 [place] [address] Karina Pedraza, JOSÉ [address] [address] 07/31/2025 3:00 AM EST Appointment [facility] [address] [place] [phone] O'Nguyen, Malika Xiao RN [address] [place] [address] 08/07/2025 1:00 AM EST Appointment [facility] [address] [place] [address] O'Nguyen, Malika Xiao RN [address] [place] [phone] 08/15/2025 Appointment [facility] [address] [place] [address] O'Nguyen, Malika Xiao RN [address] [place] [phone] 08/21/2025 2:00 PM EST Office Visit [facility] [address] [place] [address] 3rd Floor, [address] [address] Yvan Bates MD [address] [place] [address], [address] [address] 09/04/2025 1:00 PM EST Office Visit [facility] [address] [place] [address] [phone] Coco Smith MD [address] [place] [address] Orthopedics & Sports Medicine, [facility] [place], [place] [phone] 11/01/2025 1:30 PM EDT Telemedicine [facility] [address] [facility], 2nd Floor, [address] [place] [address] Bossman Weems MD 55 [facility] [address] [place] [address] [email or web address] 12/10/2025 2:00 PM EDT Office Visit [facility] 15 [place] [address] Sarah Balderas MD [address] [facility], 2nd [place] [address] [email or web address] documented as of this encounter Visit Diagnoses [...] documented as of this encounter Care Teams Lead Care Manager Relationship Specialty Start Date End Date Jv Tavera DO [email or web address] PCP - General Internal Medicine 06/14/17 03/25/25 Jv Tavera DO [address] [facility] [place] [address] [place] [address] (work) [email or web address] PCP - General Internal Medicine 03/26/25 documented as of this encounter Additional Source Comments The information contained in this document represents components of the legal health record. It is not the complete legal health record.[facility]
--- OUTSIDE RECORDS SUMMARY | 2025-07-15 21:22 | XMS_ITS | Encounter Summary ---
Author Organization [facility] Address [address] [facility] [address] [place] [address] Phone Care Team Providers Care [employer] Lead [employer]ds Marketing Name Role Phone Liang Jv Rivera DO Primary Care Provider [phone] Jv Tavera DO Primary Care Provider [phone] Encounter Details Date Type Department Care Team (Late st Contact Info) Description 03/24/2023 Transcribe Orders Virtual Department [address] [place] [address] Jv Tavera DO [address] [facility] [place] [address] [email or web address] Unilateral primary osteoarthritis, left knee (Primary Dx) Social History Tobacco Use Types [...] 07/16/2025 10:45 AM EST Appointment [facility] [address] [place] [phone] Esther Bryant, OT [address] [place] [address] 07/17/2025 4:00 AM EST Appointment [facility] [address] [place] [phone] O'Malika Cedillo RN [address] [place] [phone] 07/18/2025 10:45 AM EST Appointment [facility] [address] [place] [phone] Esther Bryant, OT [address] [place] [address] 07/22/2025 1:00 AM EST Appointment [facility] [address] [place] [phone] Esther Bryant, OT [address] [place] [address] 07/23/2025 12:30 AM EST Appointment [facility] [address] [place] [phone] O'Malika Cedillo RN [address] [place] [address] 07/23/2025 1:00 AM EST Appointment [facility] [address] [place] [phone] Esther Bryant, OT [address] [place] [address] 07/24/2025 1:30 PM EST Office Visit [facility] 10 [place] [address] Karina Pedraza, JOSÉ [address] [address] 07/31/2025 3:00 AM EST Appointment [facility] 30 [place] [phone] O'Nguyen, Malika Xiao RN [address] [place] [address] 08/07/2025 1:00 AM EST Appointment [facility] 30 [place] [phone] O'Nguyen, Malika Xiao RN [address] [place] [address] 08/15/2025 Appointment [facility] 30 [place] [phone] O'Nguyen, Malika Xiao RN [address] [place] [address] 08/21/2025 2:00 PM EST Office Visit [facility] [address] [place] [address] 3rd Floor, [address] [address] Yvan Bates MD [address] [place] [address] 09/04/2025 1:00 PM EST Office Visit [facility] [address] [place] [address] [phone] Coco Smith MD [address] [place] [address] Orthopedics & Sports Medicine, [facility]. [place], [place] [phone] 11/01/2025 1:30 PM EDT Telemedicine [facility] [address] [facility], 2nd Floor, [address] [place] [address] Bossman Weems MD 55 [facility] [address] [place] [address] [email or web address] 12/10/2025 2:00 PM EDT Office Visit [facility] General Surgical Care [address] [place] [address] Sarah Balderas MD [address] [facility], 2nd [place] [address] [email or web address] documented as of this encounter Results * XR KNEE 4 OR MORE VIEWS (LEFT) (03/29/2023 2:38 PM EDT) Anatomical Region Laterality Modality Knee Left Computed Radiogr aphy 04/02/2023 11:3 3 AM EDT Impressions 04/02/2023 11:34 AM EDT Tricompartmental osteophytosis in the left knee, moderate in the medial compartment. Narrative 04/02/2023 11:34 AM EDT XR KNEE 4 OR MORE VIEWS (LEFT) COMPARISON: KNEE STANDING AP 2012- FINDINGS: Left Knee: No fracture or dislocation. Moderate medial joint space narrowing. Tricompartment osteophytosis. No substantial joint effusion. Distal quadriceps and patellar enthesopathy. Severe diffuse osseous demineralization. Procedure Note Yo Ponce MD - 04/02/2023 XR KNEE 4 OR MORE VIEWS (LEFT) COMPARISON: KNEE STANDING AP 2012- FINDINGS: Left Knee: No fracture or dislocation. Moderate medial joint spacenarrowing. Tricompartment osteophytosis. No substantial joint effusion.Distal quadriceps and patellar enthesopathy. Severe diffuse osseousdemineralization. IMPRESSION: Tricompartmental osteophytosis in the left knee, moderate in the medialcompartment. us Carias Nicole Liang IVY IMG XR LOWER EXTREMITY Final Res ult documented in this encounter Visit Diagnoses Diagnosis Unilateral primary osteoarthritis, left knee- Primary Unilateral primary osteoarthritis, left knee documented in this encounter Additional Health Concerns Infection Onset Date Last Indicated Resolved Time CoV-Risk 04/20/2024 04/20/2024 05/01/2024 1:22 AM EDT CoV-Risk 07/20/2024 07/20/2024 07/23/2024 9:54 AM EST COVID-19 Comment:Symptom onset = 07/20, 10 days, not immunocompromised 07/20/2024 07/23/2024 08/02/2024 1 2:18 PM EST documented as of this encounter Care Teams [employer] Lead [employer]ds Marketing Relationship Specialty Start Date End Date Jv Tavera DO PCP - General Internal Medicine 06/14/17 03/25/25 Jv Tavera DO [address] [place] [address] PCP - General Internal Medicine 03/26/25 documented as of this encounter Additional Source Comments The information contained in this document represents components of the legal health record. It is not the complete legal health record.[facility]
--- OUTSIDE RECORDS SUMMARY | 2025-07-15 21:22 | XMS_ITS | Encounter Summary ---
Author Organization [facility] Address [address] [facility] [address] [place] [address] Phone Care Team Providers Care Associate Chemist Name Role Phone Tyshawncuate Jv Rivera DO Primary Care Provider TyshawncuateJv DO Primary Care Provider Reason for Referral * MRI/CAT Scan - Closed Specialty Diagnoses / Procedures Referred By Rylie [email or web address] Referred To Contact Radiology Diagnoses Shortness of breath Procedures NC Myocardial Perfusion Stress Single NC Myocardial Perfusion Exercise Multiple Pro Hernandez NP Phone: tel: [email or web address] Referral ID Status Reason Start Date Expiration Date Visits Re quested Visits Authorized [id number] Closed 09/20/2018 11/19/2018 1 1 Encounter Details Date Type Department Care Team (Latest Contact Info) Description 09/27/2018 Ancillary Orders [facility] [address] 3rd Floor, [address] [place] [address] Pro Hernandez NP [address] [facility] [place] [address] [place] [address] [email or web address] Shortness of breath Social History Tobacco Use Types Packs/Day Years [...] 07/16/2025 10:45 AM EST Appointment [facility] [address] [place] [phone] Esther Bryant, OT [address] [place] [address] 07/17/2025 4:00 AM EST Appointment [facility] [address] [place] [phone] O'Malika Cedillo RN [address] [place] [address] 07/18/2025 10:45 AM EST Appointment [facility] [address] [place] [phone] Eshter Byrant, OT [address] [place] [address] 07/22/2025 1:00 AM EST Appointment [facility] [address] [place] [phone] Esther Bryant, OT [address] [place] [address] 07/23/2025 12:30 AM EST Appointment [facility] [address] [place] [phone] OMalika Blackman RN [address] [place] [address] 07/23/2025 1:00 AM EST Appointment [facility] [address] [place] [phone] Esther Bryant, OT [address] [place] [address] 07/24/2025 1:30 PM EST Office Visit [facility] 10 [place] [address] Karina Pedraza, TRAVELING REPRESENTATIVE [address] [address] 07/31/2025 3:00 AM EST Appointment [facility] 30 [place] [phone] O'Nguyen, Malika Xiao RN [address] [place] [address] 08/07/2025 1:00 AM EST Appointment [facility] 30 [place] [address] O'Nguyen, Malika Xiao RN [address] [place] [address] 08/15/2025 Appointment [facility] [address] [place] [phone] O'Nguyen, Malika Xiao RN [address] [place] [address] 08/21/2025 2:00 PM EST Office Visit [facility] [address] [place] [address] 3rd Floor, [address] [place] [address] Yvan Bates MD [address] [place] [address], [address] [address] 09/04/2025 1:00 PM EST Office Visit [facility] [address] [place] [address] Coco Smith MD [address] [place] [address] [facility] [place] [address] 11/01/2025 1:30 PM EDT Telemedicine [facility] [address] [facility], 2nd Floor, [address] [place] [address] Bossman Weems MD [address] [facility] [address] [place] [address] [email or web address] 12/10/2025 2:00 PM EDT Office Visit [facility] General Surgical Care [address] [place] [address] Sarah Balderas MD 15 [facility], 2nd [place] [address] [email or web address] documented as of this encounter Results * NC Myocardial Perfusion Stress Single (09/27/2018 9:18 AM EST) Nuc Stress EF 62 % LV Systolic Volume Index 24 mL/m2 LV Diastolic Volume Index 64 mL/m2 Anatomical Region Laterality Modality Heart Ultrasound Narrative 09/29/2018 12:44 PM EST Normal study. There is no evidence of myocardial infarction or ischemia. Normal LV size and function with no regional wall motion abnormalities. Very low likelihood of hemodynamically significant coronary artery disease. Low risk study for myocardial events or cardiac in the next two years. Nuclear Study Quality TYPE OF STUDY: Myocardial Perfusion Imaging after Regadenoson protocol with gated SPECT. PROTOCOL USED: Stress protocol only in the supine and prone position. Images were obtained in gated tomographic technique. Images were processed in SPECT format, reconstructed tomographically and compared [id number] in short axis, horizontal long axis and vertical long axis. DOSE: Technetium 99m Sestamibi 11.4 mCi injected intravenously during stress on 09/27/2018 with post injection scan time of 45 minutes. Overall imaging quality is good.. There are no artifacts present. Study was gated successfully.. Perfusion Defect The lung to heart ratio is 0.30. Response to Stress BMI: 26.79 Patient was unable to walk on TM due to shortness of breath and inability to reach 85% MPHR. The patient was infused with 0.4 mg of Regadenoson (Lexiscan) intravenously over 10 seconds followed immediately by the injection of the Tc99m Sestamibi. Patient tolerated infusion without complications. Test terminated due to completion of protocol. SUMMARY: 1. RESTING ECG: NSR. 2. EXERCISE ECG: No ECG changes that meet criteria for ischemia with Lexiscan injection. 3. SYMPTOMS: patient reported shortness of breath with Lexiscan injection that resolved spontaneously in mid recovery. 4. PHYSIOLOGY: Appropriate physiologic response to Lexiscan injection. Resting HR of 81 bpm constantino to a max HR of 91 bpm. Vital signs stable and returned to baseline prior to discharge from the lab. 5. ARRHYTHMIA: No ectopy noted. CONCLUSION: Normal ECG portion of pharmacologic nuclear stress test. No ECG changes that meet criteria for ischemia. Patient tolerated Lexiscan injection without complication. Nuclear images and report to follow. Sofi Tang PA-C . Stress Function Comments Post-stress ejection fraction was 62%. Stress end diastolic index: 64 mL/m2. Stress end systolic index: 24 mL/m2. Nuclear Prior Study There is no prior study available for comparison. Perfusion Scoring Stress Summed Score: 0 Percent Normal: 0.00% The left ventricular perfusion is normal. Procedure Note Glenn Rosen MD / Ted Dan MD - 09/29/2018 Normal study. There is no evidence of myocardial infarction or ischemia. Normal LV size and function with no regional wall motion abnormalities. Very low likelihood of hemodynamically significant coronary arterydisease. Low risk study for myocardial events or cardiac in the next twoyears. Pro Hernandez NP CV NM CARDIAC Final Result documented in this encounter Visit Diagnoses Diagnosis Shortness of breath- Primary Shortness of breath documented in this encounter Additional Health Concerns [...] documented as of this encounter Care Teams Associate Chemist Relationship Specialty Start Date End Date Jv Tavera DO PCP - General Internal Medicine 06/14/17 03/25/25 Jv Tavera DO [address] [place] [address] PCP - General Internal Medicine 03/26/25 documented as of this encounter Additional Source Comments The information contained in this document represents components of the legal health record. It is not the complete legal health record.[facility]
--- OUTSIDE RECORDS SUMMARY | 2025-07-15 21:22 | XMS_ITS | Encounter Summary ---
Author Organization [facility] Address [address] [place] [address] Phone Care Team Providers Care Pallet Sorter Name Role Phone TyshawnJv cuello Primary Care Provider [phone] Tyshawncuate Jv Rivera DO Primary Care Provider [phone] Reason for Referral * MRI/CAT Scan - Closed Specialty Diagnoses / Procedures Referred By Rylie [email or web address] Referred To Contact Radiology Diagnoses Dyspnea, unspecified type Procedures CT Chest Nicolas Cuevas MD Phone: tel: fax: mailto:[email or web address] Referral ID Status Reason Start Date Expiration Date Visits Re quested Visits Authorized [id number] Closed 09/04/2018 11/03/2018 1 1 Encounter Details Date Type Department Care Team (Late st Contact Info) Description 08/29/2018 Ancillary Orders Virtual Department [address] [place] [address] Nicolas Cuevas MD [address], [address] [place] [address] [email or web address] Dyspnea, unspecified type Social History Tobacco Use [...] 07/16/2025 10:45 AM EST Appointment [facility] [address] [place] [phone] Esther Bryant, OT [address] [place] [address] 07/17/2025 4:00 AM EST Appointment [facility] [address] [place] [phone] O'Malika Cedillo RN [address] [place] [address] 07/18/2025 10:45 AM EST Appointment [facility] [address] [place] [phone] Esther Bryant, OT [address] [place] [address] 07/22/2025 1:00 AM EST Appointment [facility] [address] [place] [phone] Esther Bryant, OT [address] [place] [address] 07/23/2025 12:30 AM EST Appointment [facility] [address] [place] [phone] Malika Mcintosh RN [address] [place] [address] 07/23/2025 1:00 AM EST Appointment [facility] [address] [place] [phone] Esther Bryant, OT [address] [place] [address] 07/24/2025 1:30 PM EST Office Visit [facility] [address] [place] [address] Karina Pedraza, BASKET PERSON [address] [address] 07/31/2025 3:00 AM EST Appointment [facility] [address] [place] [phone] O'Nguyen, Malika Xiao RN [address] [place] [address] 08/07/2025 1:00 AM EST Appointment [facility] [address] [place] [address] O'Nguyen, Malika Xiao RN [address] [place] [address] 08/15/2025 Appointment [facility] [address] [place] [phone] O'Malika Cedillo RN [address] [place] [phone] 08/21/2025 2:00 PM EST Office Visit [facility] [address] [place] [address] 3rd Floor, [address] [address] Yvan Bates MD [address] [place] [address] 09/04/2025 1:00 PM EST Office Visit [facility] [address] [place] [address] Coco Smith MD [address] [place] [address] Orthopedics & Sports Medicine, [place] [address] 11/01/2025 1:30 PM EDT Telemedicine [facility] [address] [facility], 2nd Floor, [address] [place] [address] Bossman Weems MD [address] [place] [address] [address] [place] [address] [email or web address] 12/10/2025 2:00 PM EDT Office Visit [facility] Care [address] [place] [address] Sarah Balderas MD [address], 2nd [place] [address] [email or web address] documented as of this encounter Results * CT CHEST WITHOUT CONTRAST (09/08/2018 9:24 AM EST) Anatomical Region Laterality Modality Chest Computed Tomogra phy 09/08/2018 9:27 AM EST Impressions 09/08/2018 9:44 AM EST 1. Right lower lobe bandlike opacity indicative of scarring or atelectasis. Follow up imaging should be based on clinical concern. 2. COPD with sub-5 mm right middle and lower lobe pulmonary nodules which are likely benign. This can be followed in 12 months if clinically warranted. 3. Additional findings as outlined above. N.B.: Calcification in the coronary arteries does not in itself have a high positive predictive value for near term cardiac events; however, in the appropriate clinical setting it may be an indication for further evaluation or cardiology consultation depending on the patient?s cardiac risk factors. TOTAL CTDIvol: 4.7 mGy POS - [id number] Narrative 09/08/2018 9:44 AM EST COMPARISON: Chest radiograph 08/07/2018. CT abdomen pelvis 08/13/2010. No prior chest CT. TECHNIQUE: CT chest without IV contrast. Multiplanar reformatted images generated. Automated exposure control utilized. CT CHEST FINDINGS: Cardiovascular: Heart is normal in size. No pericardial effusion. Aortic tortuosity and ectasia measuring up to 3.7 cm in the ascending aorta. No aneurysm. Mild aortic and coronary artery calcified plaque. Pulmonary artery outflow tract is normal in size. Mediastinum: Stable small hiatal hernia. No enlarged mediastinal or hilar lymph nodes. Upper Abdomen: Moderate colonic stool volume and mild diffuse diverticulosis. Stable severe pancreatic atrophy. Chronic cholecystectomy and mild CBD dilatation. Adrenal glands are normal. Stable subcentimeter left hepatic lobe cyst. Chest wall/thoracic inlet: No thyroid nodules. No supraclavicular or axillary lymphadenopathy. Breast tissue is symmetric. No suspicious findings. Musculoskeletal: Osteopenia. Mild thoracic kyphosis. No compression fracture deformities, advanced degenerative changes or destructive bone lesions. Lungs: No airway masses or bronchiectasis. Lungs are hyperinflated. No pulmonary masses or pleural effusions. Bandlike opacity in the lateral right lower lobe base representing an atelectasis or scarring. Mild biapical pleural-parenchymal scarring. Mild increase in size of small benign calcified granulomas in the left lower lobe base. 1 to 2 mm nodule in the lateral right middle lobe and 3 mm nodule in the right lower lobe. Procedure Note Sheldon Washburn MD - 09/08/2018 COMPARISON: Chest radiograph 08/07/2018. CT abdomen pelvis 08/13/2010. [facility] chest CT. TECHNIQUE: CT chest without IV contrast. Multiplanar reformatted imagesgenerated. Automated exposure control utilized. CT CHEST FINDINGS: Cardiovascular: Heart is normal in size. No pericardial effusion. Aortictortuosity and ectasia measuring up to 3.7 cm in the ascending aorta. Noaneurysm. Mild aortic and coronary artery calcified plaque. Pulmonaryartery outflow tract is normal in size. Mediastinum: Stable small hiatal hernia. No enlarged mediastinal or hilarlymph nodes. Upper Abdomen: Moderate colonic stool volume and mild diffusediverticulosis. Stable severe pancreatic atrophy. Chroniccholecystectomy and mild CBD dilatation. Adrenal glands are normal.Stable subcentimeter left hepatic lobe cyst. Chest wall/thoracic inlet: No thyroid nodules. No supraclavicular oraxillary lymphadenopathy. Breast tissue is symmetric. No suspiciousfindings. Musculoskeletal: Osteopenia. Mild thoracic kyphosis. No compressionfracture deformities, advanced degenerative changes or destructive bonelesions. Lungs: No airway masses or bronchiectasis. Lungs are hyperinflated. Nopulmonary masses or pleural effusions. Bandlike opacity in the lateralright lower lobe base representing an atelectasis or scarring. Mildbiapical pleural-parenchymal scarring. Mild increase in size of smallbenign calcified granulomas in the left lower lobe base. 1 to 2 mm nodulein the lateral right middle lobe and 3 mm nodule in the right lowerlobe. IMPRESSION: 1. Right lower lobe bandlike opacity indicative of scarring oratelectasis. Follow up imaging should be based on clinical concern. 2. COPD with sub-5 mm right middle and lower lobe pulmonary nodules whichare likely benign. This can be followed in 12 months if clinicallywarranted. 3. Additional findings as outlined above. N.B.: Calcification in the coronary arteries does not in itself have ahigh positive predictive value for near term cardiac events; however, inthe appropriate clinical setting it may be an indication for furtherevaluation or cardiology consultation depending on the patient?s cardiacrisk factors. TOTAL CTDIvol: 4.7 mGy POS - [id number] Nicolas Cuevas MD IMG CT CHEST Final [...] documented as of this encounter Care Teams Pallet Sorter Relationship Specialty Start Date End Date Jv Tavera DO PCP - General Internal Medicine 06/14/17 03/25/25 Jv Tavera DO [address] [place] [address] PCP - General Internal Medicine 03/26/25 documented as of this encounter Additional Source Comments The information contained in this document represents components of the legal health record. It is not the complete legal health record.[facility]
--- OUTSIDE RECORDS SUMMARY | 2025-07-15 21:22 | XMS_ITS | Encounter Summary ---
Author Organization [facility] Address [address] [place] [address] Phone Care Team Providers Care Medical Lab Specialist Name Role Phone Jv Tavera Primary Care Provider [phone] TyshawnJv cuello DO Primary Care Provider [phone] Encounter Details Date Type Department Care Team (Late st Contact Info) Description 09/29/2022 Procedure [facility], Ct Scan - [address] [address] Social History Tobacco Use Types Packs/Day Years [...] 09/29/2022 5:16 AM Mihaela Jimenez RN * [place] Suicide Severity Rating Scale (Screener/Recent Self-Report) Question [...] 07/16/2025 10:45 AM EST Appointment [facility] [address] [place] [phone] Esther Bryant, OT [address] [place] [address] [email or web address] 07/17/2025 4:00 AM EST Appointment [facility] [address] [place] [phone] O'NguyenMalika RN [address] [place] [phone] [email or web address] 07/18/2025 10:45 AM EST Appointment [facility] [address] [place] [phone] Esther Bryant, OT [address] [place] [address] [email or web address] 07/22/2025 1:00 AM EST Appointment [facility] [address] [place] [phone] Esther Bryant, OT [address] [place] [address] [email or web address] 07/23/2025 12:30 AM EST Appointment [facility] [address] [place] [phone] O'Malika Cedillo RN [address] [place] [phone] [email or web address] 07/23/2025 1:00 AM EST Appointment [facility] [address] [place] [phone] Esther Bryant, OT [address] [place] [address] 07/24/2025 1:30 PM EST Office Visit [facility] [address] [place] [address] Karina Pedraza, JOSÉ [address] [address] 07/31/2025 3:00 AM EST Appointment [facility] [address] [place] [address] O'Nguyen, Malika Xiao RN [address] [place] [address] 08/07/2025 1:00 AM EST Appointment [facility] [address] [place] [address] O'Nguyen, Malika Xiao RN [address] [place] [address] 08/15/2025 Appointment [facility] [address] [place] [address] O'Nguyen, Malika Xiao RN [address] [place] [address] 08/21/2025 2:00 PM EST Office Visit [facility] [address] [place] [address] 3rd Floor, [address] [address] Yvan Bates MD [address] [place] [address], [address] [address] 09/04/2025 1:00 PM EST Office Visit [facility] [address] [place] [phone] Coco Smith MD [address] [place] [address] Orthopedics & Sports Medicine, [facility] [place], [place] [phone] 11/01/2025 1:30 PM EDT Telemedicine [facility] [address] [facility], 2nd Floor, [address] [place] [address] Bossman Weems MD [address] [facility] [address] [place] [address] [email or web address] 12/10/2025 2:00 PM EDT Office Visit [facility] General Surgical Care 15 [place] [address] Sarah Balderas MD [address] [facility], 2nd [place] [address] [email or web address] documented as of this encounter Visit Diagnoses [...] documented as of this encounter Care Teams Medical Lab Specialist Relationship Specialty Start Date End Date Jv Tavera DO [email or web address] PCP - General Internal Medicine 06/14/17 03/25/25 Jv Tavera DO [address] [facility] [place] [address] [place] [address] ([email or web address]) [email or web address] PCP - General Internal Medicine 03/26/25 documented as of this encounter Additional Source Comments The information contained in this document represents components of the legal health record. It is not the complete legal health record.[facility]
--- OUTSIDE RECORDS SUMMARY | 2025-07-15 21:22 | XMS_ITS | Encounter Summary ---
Author Organization [facility] Address [address] [address] [facility] [address] [place] [address] Phone Care Team Providers Care Full Fashioned Garment Knitter Name Role Phone Jv Tavera DO Primary Care Provider [phone] vJ Tavera DO Primary Care Provider [phone] Encounter Details Date Type Department Care Team (Latest Contact Info) Description 11/01/2018 Transcribe Orders [facility] [address] [place] [address] Nicolas Cuevas MD [address] [facility], [address] [place] [address] [email or web address] Dyspnea, unspecified type (Primary Dx) Social History [...] Appointment [facility] [address] [place] [phone] Esther Bryant, OT [address] [place] [address] 07/17/2025 4:00 AM EST Appointment [facility] [address] [place] [phone] O'Malika Cedillo, PEARL [address] [place] [address] 07/18/2025 10:45 AM EST Appointment [facility] [address] [place] [phone] Esther Bryant, OT [address] [place] [address] 07/22/2025 1:00 AM EST Appointment [facility] [address] [place] [phone] Esther Bryant, OT [address] [place] [address] 07/23/2025 12:30 AM EST Appointment [facility] [address] [place] [phone] O'Nguyen, Malika Xiao, PEARL [address] [place] [address] 07/23/2025 1:00 AM EST Appointment [facility] [address] [place] [phone] Esther Bryant, OT [address] [place] [address] 07/24/2025 1:30 PM EST Office Visit [facility] [address] [place] [address] Karina Pedraza, RIFFLER TENDER [address] [address] 07/31/2025 3:00 AM EST Appointment [facility] [address] [place] [address] O'Nguyen, Malika Xiao RN [address] [place] [address] 08/07/2025 1:00 AM EST Appointment [facility] [address] [place] [address] O'Nguyen, Malika Xiao RN [address] [place] [address] 08/15/2025 Appointment [facility] [address] [place] [address] O'Nguyen, Malika Xiao RN [address] [place] [address] 08/21/2025 2:00 PM EST Office Visit [facility] [address] [place] [address] 3rd Floor, [address] [place] [address] Yvan Bates MD [address] [place] [address] 09/04/2025 1:00 PM EST Office Visit [facility] [address] [place] [address] Coco Smith MD [address] [place] [address] Orth[facility] [address] 11/01/2025 1:30 PM EDT Telemedicine [facility] [address] [place] [address], 2nd Floor, [address] [place] [address] Bossman Weems MD [address] [place] [address] [address] [place] [address] [email or web address] 12/10/2025 2:00 PM EDT Office Visit [facility] General Surgical Care [address] [place] [address] Sarah Balderas MD [address] [facility], 2nd [place] [address] [email or web address] documented as of this encounter Results * Pulmonary Function Test Reason for Exam: Dyspnea/Shortness of Breath; Type of PFT Test: Spirometry with bronchodilator; Performing Location: [facility] (11/02/2018 9:16 AM EDT) Anatomical Region Laterality Modality Other Narrative Procedure Note Nicolas Cuevas MD - 11/02/2018 9:16 AM EDT REFERRING PHYSICIAN: Nicolas Cuevas M.D. INDICATION FOR STUDY: Diagnosis of shortness of breath. Baseline spirometry shows a severe reduction of FEF 25/75 with 41% of predicted. The FVC and FEV1 were normal. At 10 mg/mL an hour, the FVC dropped by 32% of predicted. FEV1 dropped by 27% of predicted. At the administration of bronchodilators, spirometric values returned to near baseline. Visual inspection of the flow volume loop does not show clear evidence of flattening of the inspiratory limb. The patient developed increasing coughing with progressing doses of methacholine. The response to bronchodilators is not documented. This is a positive methacholine challenge test yielding evidence of tooo-aw-cgrwfivl bronchial reactivity. The target symptom of coughing was reproduced with methacholine. Nicolas Cuevas M.D. Dictator/[place]: [id number] Date/Time Date/Time Modified Date: 11/03/2018 08:16:00 [id number] This report has not been authenticated by the dictating clinician unless signature appears above, or an electronic signature statement appears below this line. CC: Jv Tavera D.O. us Nicolas Cuevas MD PFT ORDERABLES Final Result documented in this [...] documented as of this encounter Care Teams Full Fashioned Garment Knitter Relationship Specialty Start Date End Date Jv Tavera DO PCP - General Internal Medicine 06/14/17 03/25/25 Jv Tavera DO [address] [place] [address] PCP - General Internal Medicine 03/26/25 documented as of this encounter Additional Source Comments The information contained in this document represents components of the legal health record. It is not the complete legal health record.[facility]
--- OUTSIDE RECORDS SUMMARY | 2025-07-15 21:22 | XMS_ITS | Encounter Summary ---
Author Organization [facility] Address [address] [place] [address] Phone Care Team Providers Care Manager Urology Name Role Phone Tyshawncuate Jv Rivera DO Primary Care Provider [phone] Jv Tavera DO Primary Care Provider [phone] Encounter Details Date Type Department Care Team (Late Contact Info) Description 07/31/2018 Ancillary Orders Virtual Department 30 [place] [address] Jv Tavera DO [address] [facility] [place] [address] [place] [address] [email or web address] Dyspnea on exertion Social History Tobacco Use Types Packs/Day Years [...] Appointment [facility] [address] [place] [phone] Esther Bryant, OT [address] [place] [address] 07/17/2025 4:00 AM EST Appointment [facility] [address] [place] [address] O'Malika Cedillo RN [address] [place] [address] 07/18/2025 10:45 AM EST Appointment [facility] [address] [place] [address] Esther Bryant, OT [address] [place] [address] 07/22/2025 1:00 AM EST Appointment [facility] [address] [place] [phone] Esther Bryant, OT [address] [place] [address] 07/23/2025 12:30 AM EST Appointment [facility] [address] [place] [phone] OMalika Blackman, PEARL [address] [place] [address] 07/23/2025 1:00 AM EST Appointment [facility] [address] [place] [phone] Esther Bryant, OT [address] [place] [address] 07/24/2025 1:30 PM EST Office Visit [facility] [address] [place] [address] Karina Pedraza, BARIATRIC NURSE [address] [address] 07/31/2025 3:00 AM EST Appointment [facility] [address] [place] [address] O'Nguyen, Malika Xiao RN [address] [place] [address] 08/07/2025 1:00 AM EST Appointment [facility] [address] [place] [address] O'Nguyen, Malika Xiao RN [address] [place] [address] 08/15/2025 Appointment [facility] [address] [place] [address] O'Nguyen, Malika Xiao RN [address] [place] [address] 08/21/2025 2:00 PM EST Office Visit [facility] [address] [place] [address] 3rd Floor, [address] [place] [address] Yvan Bates MD [address] [place] [address], [address] [address] 09/04/2025 1:00 PM EST Office Visit [facility] Medicine [address] [place] [address] Coco Smith MD [address] [place] [address] [facility] [place] [address] 11/01/2025 1:30 PM EDT Telemedicine [facility] [address] [facility], 2nd Floor, [address] [place] [address] Bossman Weems MD [address] [place] [address] [address] [place] [address] [email or web address] 12/10/2025 2:00 PM EDT Office Visit [facility] General Surgical Care 15 [place] [address] Sarah Balderas MD [address] [place] [facility], 2nd [place] [address] [email or web address] documented as of this encounter Results * Holter Monitor 24 Hours (08/18/2018 4:06 PM EST) Total Beats 106,241 [facility] Ventricular Ectopy Total Beats 28 [facility] Ventricular Ectopy Single Beats 25 [facility] Ventricular Pair 0 [facility] Ventricular Runs 1 [facility] Longest Ventricular Beats 3 [facility] Longest Ventricular Rate 200 BPM [facility] Fastest Ventricular Beats 3 [facility] Fastest Ventricular Rate 200 BPM [facility] Supraventricular Total Beats 5,233 [facility] Supraventricular Ectopic Single Beats 5,142 [facility] Supraventricular Pairs 20 [facility] Supraventricular Runs 8 [facility] Supraventricular Longest Run 17 [facility] Longest Supraventricular Run Rate 128 BPM [facility] Fastest Supraventricular Run Rate 202 BPM [facility] PHS CV HOLTER SUPRAVENTRICULAR FASTEST RUN 3 [facility] Mean Heart Rate 76 BPM [facility] Maximum Heart Rate 138 BPM C [facility] Minimum Heart Rate 57 BPM C [facility] Longest RR 1.376 S [facility] Anatomical Region Laterality Modality Heart Other 08/17/2018 11:1 4 AM EST 08/18/2018 4:05 PM EST Narrative 08/18/2018 9:52 PM EST Abnormal Holter monitor Holter Monitor Main Form Mean HR: 76 bpm Max HR: 138 bpm Min HR: 57 bpm Ventricular ectopic beats - total: 28 Ventricular ectopic beats - singles: 25 Ventricular ectopic beats - pairs: 0 Ventricular ectopic beats - runs: 1 The longest ventricular run was 3 at 200 bpm. The fastest ventricular run was 3 beatsat 200 bpm. Supraventricular ectopic beats - % of total beats: 4 Supraventricular ectopic beats - total: 5233 Supraventricular ectopic beats - singles: 5142 Supraventricular ectopic beats - pairs: 20 Supraventricular ectopic beats - runs: 8 The longest supraventricular run was 17 beats at 128 bpm. The fastest supraventricular run was 3 beats at 202 bpm. Longest R-R interval1.376 sec Baseline rhythm is sinus rhythm (min 57 bpm, mean 76 bpm, max 138 bpm). 5 Activations, including: Symptoms of out of breath, stairs occurred coincided with a ventricular triplet Two episodes of shortness of breath during exercise coincided with sinus rhythm with PACs One episode of dizziness coincided with sinus rhythm with PACs Asymptomatic 17-beat episode of mid-RP narrow complex tachycardia us Jv Tavera DO CV CARDIAC SERVICES ORDERABLES F inal Result documented in this encounter Visit Diagnoses Diagnosis Dyspnea on exertion Other dyspnea and respiratory abnormality Dyspnea on exertion Other dyspnea and respiratory abnormality documented in this encounter Additional Health Concerns [...] documented as of this encounter Care Teams Manager Urology Relationship Specialty Start Date End Date Jv Tavera DO [email or web address] PCP - General Internal Medicine 06/14/17 03/25/25 Jv Tavera DO [address] [place] [address] PCP - General Internal Medicine 03/26/25 documented as of this encounter Additional Source Comments The information contained in this document represents components of the legal health record. It is not the complete legal health record.[facility]
--- OUTSIDE RECORDS SUMMARY | 2025-07-15 21:22 | XMS_ITS | Encounter Summary ---
Author Organization [facility] Address [address] [place] [address] Phone Care Team Providers Care Occupational Therapy Aide Name Role Phone Jv Tavera Primary Care Provider [phone] Jv Tavera DO Primary Care Provider [phone] Encounter Details Date Type Department Care Team (Late st Contact Info) Description 09/25/2019 Procedure Pass [facility] Endoscopy Admitting Dept Virtual Department 30 [place] [address] Social History Tobacco Use Types Packs/Day Years [...] Description 07/16/2025 10:45 AM EST Appointment [facility] [address] [place] [address] Esther Bryant, OT [address] [place] [address] 07/17/2025 4:00 AM EST Appointment [facility] [address] [place] [address] Michelle'Malika Cedillo RN [address] [place] [address] 07/18/2025 10:45 AM EST Appointment [facility] [address] [place] [phone] Esther Bryant, OT [address] [place] [address] 07/22/2025 1:00 AM EST Appointment [facility] 30 [place] [address] Esther Bryant, OT [address] [place] [address] 07/23/2025 12:30 AM EST Appointment [facility] [address] [place] [address] O'Malika Cedillo RN [address] [place] [address] 07/23/2025 1:00 AM EST Appointment [facility] [address] [place] [address] Esther Bryant, OT [address] [place] [address] 07/24/2025 1:30 PM EST Office Visit [facility] [address] [place] [address] Karina Pedraza, PLASTIC MOULD MAKER [address] [place] [address] 07/31/2025 3:00 AM EST Appointment [facility] [address] [place] [address] O'Malika Cedillo RN [address] [place] [address] 08/07/2025 1:00 AM EST Appointment [facility] [address] [place] [address] O'Nguyen, Malika Xiao RN [address] [place] [address] 08/15/2025 Appointment [facility] [address] [place] [address] O'Nguyen, Malika Xiao RN [address] [place] [address] 08/21/2025 2:00 PM EST Office Visit [facility] [address] [facility] [address] [facility] 3rd Floor, [address] [place] [address] Yvan Bates MD [address] [facility], [address] [place] [address] 09/04/2025 1:00 PM EST Office Visit [facility] Orthopedics & Sports Medicine [address] [place] [address] Coco Smith MD [address] [place] [address] Orthopedics & Sports Medicine, [place] [address] 11/01/2025 1:30 PM EDT Telemedicine [facility] [address] [facility], 2nd Floor, [address] [place] [address] Bossman Weems MD [address] [place] [address] [address] [place] [address] [email or web address] 12/10/2025 2:00 PM EDT Office Visit [facility] General Surgical Care 15 [place] [address] Sarah Balderas MD [address] [facility], 2nd [place] [address] [email or web address] documented as of this [...] documented as of this encounter Care Teams Occupational Therapy Aide Relationship Specialty Start Date End Date Jv Tavera DO PCP - General Internal Medicine 06/14/17 03/25/25 Jv Tavera DO [address] [place] [address] PCP - General Internal Medicine 03/26/25 documented as of this encounter Additional Source Comments The information contained in this document represents components of the legal health record. It is not the complete legal health record.[facility]
--- OUTSIDE RECORDS SUMMARY | 2025-07-15 21:22 | XMS_ITS | Encounter Summary ---
Author Organization [facility] Address [address] [place] [address] Phone Care Team Providers Care Optical Worker Name Role Phone Jv Tavera DO Primary Care Provider [phone] Jv Tavera DO Primary Care Provider [phone] Encounter Details Date Type Department Care Team (Late Contact Info) Description 04/13/2022 Transcribe Orders [facility] [address] [place] [address] Bossman Weems MD [address] [place] [address] [email or web address] Social History Tobacco Use Types Packs/Day [...] 07/16/2025 10:45 AM EST Appointment [facility] [address] [place] [phone] Esther Bryant, OT [address] [place], [place] [phone] 07/17/2025 4:00 AM EST Appointment [facility] [address] [place] [phone] O'Malika Cedillo, PEARL [address] [place] [address] 07/18/2025 10:45 AM EST Appointment [facility] [address] [place] [address] Esther Bryant, OT [address] [place] [address] 07/22/2025 1:00 AM EST Appointment [facility] [address] [place] [phone] Esther Bryant, OT [address] [place] [address] 07/23/2025 12:30 AM EST Appointment [facility] [address] [place] [phone] OMalika Blackman, PEARL [address] [place] [address] 07/23/2025 1:00 AM EST Appointment [facility] [address] [place] [phone] Esther Bryant, OT [address] [place] [address] 07/24/2025 1:30 PM EST Office Visit [facility] [address] [place] [address] Karina Pedraza, JOSÉ [address] [address] 07/31/2025 3:00 AM EST Appointment [facility] 30 [place] [address] O'Nguyen, Malika Xiao RN [address] [place] [address] 08/07/2025 1:00 AM EST Appointment [facility] [address] [place] [address] O'gNuyen, Malika Xiao RN [address] [place] [address] 08/15/2025 Appointment [facility] [address] [place] [address] O'Nguyen, Malika Xiao RN [address] [place] [address] 08/21/2025 2:00 PM EST Office Visit [facility] [address] [place] [address] 3rd Floor, [address] [place] [address] Yvan Bates MD [address] [place] [address], [address] [address] 09/04/2025 1:00 PM EST Office Visit [facility] Orthopedics & Sports Medicine [address] [place] [address] Coco Smith MD [address] [place] [address] [facility] [place] [address] 11/01/2025 1:30 PM EDT Telemedicine [facility] [address] [place] [address], 2nd Floor, [address] [place] [address] Bossman Weems MD [address] [place] [address] [address] [place] [address] [email or web address] 12/10/2025 2:00 PM EDT Office Visit [facility] General [facility] Care 15 [place] [address] Sarah Balderas MD [address] [facility], 2nd [place] [address] [email or web address] documented as of this encounter Visit Diagnoses [...] documented as of this encounter Care Teams Optical Worker Relationship Specialty Start Date End Date Jv Tavera DO PCP - General Internal Medicine 06/14/17 03/25/25 Jv Tavera DO [address] [place] [address] PCP - General Internal Medicine 03/26/25 documented as of this encounter Additional Source Comments The information contained in this document represents components of the legal health record. It is not the complete legal health record.[facility]
--- OUTSIDE RECORDS SUMMARY | 2025-07-15 21:22 | XMS_ITS | Encounter Summary ---
Author Organization [facility] Address [address] [facility] [address] [place] [address] Phone Care Team Providers Care Oncology Rep Specialist Name Role Phone Jv Tavera Primary Care Provider [phone] TyshawnJv cuello DO Primary Care Provider [phone] Encounter Details Date Type Department Care Team (Late st Contact Info) Description 09/29/2022 Procedure Pass [facility], Ct Scan - [address] [address] Social History Tobacco Use Types Packs/Day Years [...] 09/29/2022 5:16 AM Mihaela Jimenez RN * [place] Suicide Severity Rating Scale (Screener/Recent Self-Report) Question Answer Date of Assessment Author 1. Wish to be (Past 1 Month) No 09/29/2022 5:16 AM Maikel Jimenze RN 2. Non-Specific Active Suici alcira Thoughts (Past 1 Month) No 09/29/2022 5:16 AM EST Hans Cobb RN 6. Suicidal Behavior (Lifetime) No 5:16 AM EST Mihaela Cobb RN documented as of this encounter Plan of Treatment Upcoming Encounters Date Type Department Care Team (Late st Contact Info) Description 07/16/2025 10:45 AM EST Appointment [facility] [address] [place] [phone] Esther Bryant, OT [address] [place] [address] 07/17/2025 4:00 AM EST Appointment [facility] [address] [place] [phone] O'NguyenMalika RN [address] [place] [address] 07/18/2025 10:45 AM EST Appointment [facility] [address] [place] [phone] Esther Bryant, OT [address] [place] [address] 07/22/2025 1:00 AM EST Appointment [facility] [address] [place] [phone] Esther Bryant, OT [address] [place] [address] 07/23/2025 12:30 AM EST Appointment [facility] [address] [place] [phone] O'Malika Cedillo RN [address] [place] [address] 07/23/2025 1:00 AM EST Appointment [facility] [address] [place] [phone] Esther Bryant, OT [address] [place] [address] 07/24/2025 1:30 PM EST Office Visit [facility] 10 [place] [address] Karina Pedraza, JOSÉ [address] [address] 07/31/2025 3:00 AM EST Appointment [facility] 30 [place] [address] O'Nguyen, Malika Xiao RN [address] [place] [address] 08/07/2025 1:00 AM EST Appointment [facility] 30 [place] [address] O'Nguyen, Malika Xiao RN [address] [place] [address] 08/15/2025 Appointment [facility] 30 [place] [address] O'Nguyen, Malika Xiao RN [address] [place] [address] 08/21/2025 2:00 PM EST Office Visit [facility] [address] [place] [address] 3rd Floor, [address] [address] Yvan Bates MD [address] [place] [address], [address] [address] 09/04/2025 1:00 PM EST Office Visit [facility] [address] [place] [phone] Coco Smith MD [address] [place] [address] Orthopedics & Sports Medicine, [facility] [place], [place] [phone] 11/01/2025 1:30 PM EDT Telemedicine [facility] [address] [facility], 2nd Floor, [address] [place] [address] Bossman Weems MD 55 [facility] [address] [place] [address] [email or web address] 12/10/2025 2:00 PM EDT Office Visit [facility] General Surgical Care 15 [place] [address] Sarah Balderas MD [address] [facility], 2nd [place] [address] [email or web address] documented as of this encounter Visit Diagnoses [...] documented as of this encounter Care Teams Oncology Rep Specialist Relationship Specialty Start Date End Date Jv Tavera DO [email or web address] PCP - General Internal Medicine 06/14/17 03/25/25 Jv Tavera DO [address] [facility] [address] (work) [email or web address] PCP - General Internal Medicine 03/26/25 documented as of this encounter Additional Source Comments The information contained in this document represents components of the legal health record. It is not the complete legal health record[facility]
== END 2025-07-15 14:52 | disposition home or self-care (01) ==
LOC: HO.MANLDS 14:51
PROVIDERS: Visit Provider Internal Medicine
DX: R41.0 Disorientation, unspecified (principal)
CPT/HCPCS: 36415; 80053; 81001; 83880; 84443; 85025; 87086